=== PATIENT | female | born 1940 | race Caucasian/White ===

== ENCOUNTER 2023-05-31 08:57 | Outpatient (OUT) | payer MEDICARE, OTHER, SELFPAY ==
[2023-05-31 09:24] LABS: Estimated GFR (African America 50 (>=60); Estimated GFR (Non-African Ame 41 (>=60)
--- NOTE | 2023-05-31 09:59 | CT_ITS ---
[address] [address] Patient Name: TESSIE EL MRN: [id number] date: 1940 Sex: F Assigned Patient Location: LAB Current Patient Location: LAB Accession/Order Number: [id number] Exam Date: 05/31/2023 09:37 Report Date: 05/31/2023 13:46 At the request of: RAYMOND BELL Procedure: CT abdomen pelvis wo/w con CT abdomen pelvis wo/w con, 05/31/2023 9:37 AM EDT INDICATION: History Of Bladder Cancer Z85.51 COMPARISON: Prior CT of the abdomen dated 12/03/2020 TECHNIQUE: Axial images of the abdomen were obtained without administration of IV contrast. Multiplanar reformatted images were generated and reviewed as needed. Dose reduction techniques were achieved by using automated exposure control and/or adjustment of mA and/or kV according to patient size and/or use of iterative reconstruction technique. FINDINGS: Lungs: The base of lungs is clear. No pleural effusion is noted. Liver and gallbladder: The liver is unremarkable. There is cholelithiasis without pericholecystic fluid or wall thickening. No enlargement of intra or extrahepatic biliary ducts. 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 No abnormality in surgical bed is noted. No hydronephrosis. No nephrolithiasis. No abnormality of the urinary bladder is noted. Other solid abdominal organs: adrenal glands, pancreas, and spleen are unremarkable. Aorta: The infrarenal abdominal aorta is nonaneurysmal. Free fluid: There is no free fluid in the abdomen pelvis. Lymph node: No lymph node enlargement by size criteria is noted. Stomach and Bowel: No abnormality of the stomach is noted. No abnormality of small or large bowel is noted. Bone: There is no suspicious osteolytic or osteoblastic lesion. There is diffuse demineralization of bone. Lower lumbar spine and SI joint degenerative changes are noted. CT/CT abdomen pelvis wo/w con IMPRESSION: No significant abnormality in the current study. No significant interval change. Electronically authenticated by: JOSS BAILEY Date: 05/31/2023 13:46
== END 2023-05-31 08:58 | disposition home or self-care (01) ==
LOC: LAB 09:04
PROVIDERS: PCP Internal Medicine; Visit Provider Urology
DX: Z85.51 Personal history of malignant neoplasm of bladder (principal); Z08 Encounter for follow-up examination after completed treatment for malignant neoplasm
CPT/HCPCS: 36415; 74178; 82565; Q9967

== ENCOUNTER 2023-06-17 10:58 | Outpatient (OUT) | payer MEDICARE, OTHER, SELFPAY ==
--- NOTE | 2023-06-17 11:04 | US_ITS ---
[address] [address] Patient Name: TESSIE EL MRN: [id number] date: 1940 Sex: F Assigned Patient Location: Current Patient Location: US Accession/Order Number: [id number] Exam Date: 06/17/2023 11:05 Report Date: 06/17/2023 12:46 At the request of: EUFEMIA CALVO Procedure: US carotid duplex BI EXAMINATION: US carotid duplex BI HISTORY: Bruit Of Right Carotid Artery R09.39 COMPARISON: No relevant comparison available. TECHNIQUE: Duplex Doppler ultrasound analysis of carotid and vertebral arteries. . Bilateral carotid arterial duplex examination was performed using B-mode, color flow and spectral analysis. Carotid stenosis is reported according to validated velocity parameters, similar to NASCET criteria. FINDINGS: RIGHT CAROTID ARTERY Moderate atherosclerotic plaque. 64% area reduction right carotid bulb Subclavian: PSV: 133.8 cm/s cm/s EDV: 0.0 cm/s cm/s CCA: Prox: PSV: 45.0 cm/s cm/s EDV: 8.7 cm/s cm/s Mid: PSV: 52.6 cm/s cm/s EDV: 13.1 cm/s cm/s Distal: PSV: 55.9 cm/s cm/s EDV: 16.4 cm/s cm/s BULB: PSV: 110.2 cm/s cm/s EDV: 27.4 cm/s cm/s ICA: Prox: PSV: 90.5 cm/s cm/s EDV: 23.5 cm/s cm/s Mid: PSV: 122.0 cm/s cm/s EDV: 37.3 cm/s cm/s Distal: PSV: 98.4 cm/s cm/s EDV: 31.3 cm/s cm/s ECA: PSV: 94.4 cm/s cm/s EDV: 9.7 cm/s cm/s VERTEBRAL: PSV: 64.7 cm/s cm/s EDV: 16.4 cm/s cm/s, antegrade ICA/CCA ratio: PSV: 2.2 EDV: 2.3 LEFT CAROTID ARTERY Mild atherosclerotic plaque Subclavian: PSV: 124.0 cm/s cm/s EDV: 0.0 cm/s CCA: Prox: PSV: 68.8 cm/s cm/s EDV: 19.5 cm/s Mid: PSV: 70.8 cm/s cm/s EDV: 21.5 cm/s Distal: PSV: 60.7 cm/s cm/s EDV: 19.3 cm/s BULB: PSV: 65.9 cm/s cm/s EDV: 19.3 cm/s ICA: Prox: PSV: 43.9 cm/s cm/s EDV: 15.3 cm/s Mid: PSV: 96.4 cm/s cm/s EDV: 35.3 cm/s Distal: PSV: 80.6 cm/s cm/s EDV: 31.3 cm/s ECA: PSV: 74.9 cm/s cm/s EDV: 8.9 cm/s VERTEBRAL: PSV: 33.4 cm/s cm/s EDV: 8.5 cm/s , antegrade ICA/CCA ratio: PSV: 1.4 EDV: 1.6 IMPRESSION: 0-49% flow stenosis bilateral internal carotid arteries Spectral Doppler US Thresholds (Reference: Luis EG, et al. Radiology 2000; 214:247-252) Stenosis (%) PSV (cm/sec) VICA/VCCA 0-49 <150 <2.5 50-69 150-225 2.5-4.0 >70 >225 >4.0 Electronically authenticated by: AMANDA CHARLES Date: 06/17/2023 12:46
== END 2023-06-17 10:59 | disposition home or self-care (01) ==
LOC: US 10:59
PROVIDERS: PCP Internal Medicine; Visit Provider Internal Medicine
DX: R09.89 Other specified symptoms and signs involving the circulatory and respiratory systems (principal)
CPT/HCPCS: 93880

== ENCOUNTER 2023-08-02 10:14 | Outpatient (OUT) | payer MEDICARE, OTHER, SELFPAY ==
--- OUTSIDE RECORDS SUMMARY | 2023-08-02 10:22 | XMS_ITS | CCD ---
Author Name Unknown Address [address] [place] [address] Organization [facility] Care Team Providers Care Wood Flour Miller Name Role Phone JUAN JOSÉ ARCE Referring Unavailable CLAUDE, JUAN JOSÉ Primary Care Unavailable EARL BAUTISTA Attending Unavailable EARL BAUTISTA Admitting Unavailable CLAUDE, JUAN JOSÉ Primary Care Physician Claude, Juan José Unavailable CLAUDE, DR FALL Primary Care Unavailable BALL, DR FALL Admitting Unavailable BALL, DR FALL Attending Unavailable BALL, DR FALL Primary Care Unavailable BALL, DR FALL Admitting Unavailable BALL, DR FALL Attending Unavailable BALL, DR FALL Consulting Unavailable BALL, DR FALL Admitting Unavailable BALL, DR FALL Attending Unavailable BALL, DR FALL Consulting Unavailable BALL, DR FALL Primary Care Unavailable ZIEBER, DR SHELLIE Jackson Consulting Unavailable BALL, DR FALL Primary Care Unavailable HAY ., DR HERNÁNDEZ Admitting Unavailable HAY ., DR HERNÁNDEZ Attending Unavailable HAY ., DR HERNÁNDEZ Consulting Unavailable ITKIN, ANTONIO Consulting Unavailable Yandy Ragsdale Attending Unavailable Yandy Ragsdale Attending Unavailable LADARIUSJUAN Carlisle Attending Unavailable BARSHAILESH VALADEZ Attending Unavailable LADARIUSJUAN SIN Referring Unavailable JUAN URRUTIA Referring Unavailable Allergies Allergy Classification Reported Allergen(s) Allergy Type Date of Onset Reaction(s) Facility (1 source) Povidone-Iodine Drug Allergy 05-23-20 12 [facility] (4 sources) Sulfonamides (Antibiotic); Translations: [SULFA (SULFONAMIDE ANTIBIOTICS)] Drug allergy (disorder) 12-25-19 13 [facility] (13 sources) Iodine; Translations: [iodine] Drug Allergy 07-18-20 23 Blister (morphologic abnormality) [facility] [place] (3 sources) Sulfonamides (Antibiotic); Translations: [sulfa drugs] Drug allergy [facility] [place] (9 sources) Albuterol / Ipratropium Drug Allergy Unknown [facility] Other (9 sources) montelukast Drug Allergy Unknown [facility] Other (9 sources) Sulfamethoxazole / Trimethoprim Drug Allergy Unknown [facility] Other (9 sources) Substance with sulfonamide structure and antibacterial mechanism of action (substance) Drug allergy Unknown [facility] Other (2 sources) Iodine Drug Allergy 01-13-20 13 [facility] (1 source) Povidone-Iodine; Translations: [POVIDONE-IODINE] Drug Allergy 07-19-20 14 [facility] Repository Medications Current Medications Medication Drug Class(es) Dates Sig (Normalized) Sig (Original) 120 actuat albuterol 0.1 mg/actuat / ipratropium bromide 0.02 mg/actuat inhalation spray (9 sources) Anticholinergic, beta2-Adrenergic Agonist take 20-100 ug by inhalation every six hours as needed Combivent Respimat 20-100 MCG/ACT 1 puff as needed Inhalation every 6 hrs Active Aspirin (11 sources) Platelet Aggregation Inhibitor, Nonsteroidal Anti-inflammatory Drug Start: 04-04-2019 aspirin 81 mg Start Date: 04/04/19 Status: Ordered take 1 tablet by mouth once johnson y Aspirin 81 81 MG 1 tablet Orally Once a day Active take 1 tablet by chana th every twenty-four hours Aspirin 81 81 MG 1 tablet Orally Once a day Active atorvastatin 40 mg oral tablet (11 sources) HMG-CoA Reductase Inhibitor Start: 04-04-2019 take 40 mg by mouth once daily atorvastatin 40 mg, Oral, Daily Start Date: 04/04/19 Status: Ordered Calcium (9 sources) Phosphate Binder, Calcium Calcium Active Combivent Respimat (2 sources) Start: 04-04-2019 Combivent Respimat Start Date: 04/04/19 Status: Ordered doxycycline hyclate 100 mg oral capsule (5 sources) Tetracycline-class Drug Start: 05-04-2023 take 1 capsule by mouth every twelve hours Doxycycline Hyclate 100 MG 1 capsule Orally Twice a day for 5 days May, Active hydroCHLOROthiazide 12.5 mg / lisinopril 10 mg oral tablet (11 sources) Thiazide Diuretic, Angiotensin Converting Enzyme Inhibitor Start: 11-23-2021 take 1 tablet by mouth once daily hydrochlorothiaz nayely-lisinopril 12.5 mg-10 mg Tab 1 tab(s), Oral, Daily Start Date: 11/23/21 Status: Ordered loratadine 10 mg oral tablet (9 sources) take 1 tablet by mouth every twenty-four hours Claritin 10 MG 1 tablet Orally Once a day Active montelukast 10 mg oral tablet (11 sources) Leukotriene Receptor Antagonist Start: 04-04-2019 take 10 mg by mouth once daily Singulair 10 mg, Oral, Daily Start Date: 04/04/19 Status: Ordered Multivitamin preparation (9 sources) Multivitamin Active sotalol hydrochloride 80 mg oral tablet (11 sources) Antiarrhythmic Start: 04-04-2019 sotalol 80 mg Tab Start Date: 04/04/19 Status: Ordered take 1 tablet by chana th every twenty-four hours Sotalol HCl (AF) 120 MG 1 tablet Orally daily for 90 days Active take 1 tablet by mouth every twe lve hours Sotalol HCl (AF) 120 MG 1 tablet Orally every 12 hrs Active Completed/Discontinued Medications Medication Drug Class(es) Dates Sig (Normalized) Sig (Original) cephalexin 500 mg oral capsule (1 source) Cephalosporin Antibacterial Start: 11-09-2021 take 1 capsule by mouth every twelve hours Keflex 500 mg Cap 500 mg = 1 cap(s), Oral, q12hr, Take 1 pill the day before the procedure and 1 pill after the procedure., # 2 cap(s), Refills(s) 0, Pharmacy: [id number], 158, cm, 01/05/21 13:27:00 EDT, Height/Length Dosing, 62.1, kg, 01/05/21 13:27:0... Start Date: 11/09/21 Status: Ordered Problems Active Problems Problem Classification Problem Date Documented Da te Episodic/Chronic Acute bronchitis (1 source) Acute bronchitis due to other specified organisms Episodic Asthma (20 sources) Asthma; Translations: [Uncomplicated mild persistent asthma] 04-04-2019 Chronic Calculus of urinary tract (2 sources) Kidney stone 04-04-2019 Episodic Cancer of bladder (13 sources) Malignant tumor of urinary bladder; Translations: [Malignant neoplasm, overlapping lesion of bladder] 04-04-2019 Chronic Cancer of bladder (2 sources) History of malignant neoplasm of bladder; Translations: [Personal history of malignant neoplasm of bladder] Onset: 11-23-2021 Episodic Cancer of other urinary organs (2 sources) Malignant tumor of ureter 04-04-2019 Chronic Cancer of uterus (2 sources) Malignant neoplasm of uterus 04-04-2019 Chronic Cancer; other and unspecified primary (1 source) H/O: carcinoma 01-19-2023 Episodic Cancer; other and unspecified primary (1 source) H/O: malignant neoplasm 01-19-2023 Episodic Cardiac dysrhythmias (18 sources) Paroxysmal atrial fibrillation; Translations: [Paroxysmal atrial fibrillation] Onset: 11-30-2022 Chronic Chronic kidney disease (9 sources) Chronic kidney disease stage 3A ; Translations: [Stage 3a chronic kidney disease] Chronic Chronic obstructive pulmonary disease and bronchiectasis (11 sources) Chronic obstructive lung disease; Translations: [Simple chronic bronchitis] 04-04-2019 Chronic Conduction disorders (15 sources) Cardiac pacemaker in situ; Translations: [Presence of cardiac pacemaker] Onset: 11-30-2022 Chronic Congestive heart failure; nonhypertensive (2 sources) Congestive heart failure 04-04-2019 Chronic Disorders of lipid metabolism (18 sources) Hyperlipidemia; Translations: [Hypercholesterolemi a] Onset: 12-03-2022 04-04-2019 Chronic Endometriosis (2 sources) Endometriosis (clinical) 04-04-2019 Chronic Essential hypertension (20 sources) Hypertensive disorder; Translations: [Essential hypertension] Onset: 11-30-2022 04-04-2019 Chronic Genitourinary symptoms and ill-defined conditions (4 sources) Blood in urine; Translations: [Urinary symptoms ] 04-04-2019 Episodic Occlusion or stenosis of precerebral arteries (11 sources) Bilateral stenosis of carotid arteries; Translations: [Occlusion and stenosis of bilateral carotid arteries] Chronic Osteoporosis (8 sources) Age-related osteoporosis without current pathological fracture; Translations: [Senile osteoporosis] Onset: 05-31-2022 Chronic Other aftercare (2 sources) Other long-term (current) drug therapy; Translations: [OTH SHELTER CURRENT DRUG THERAPY] Onset: 12-09-2022 Episodic Other aftercare (1 source) Follow-up status; Translations: [Encounter for follow-up examination after completed treatment for malignant neoplasm] Onset: 01-19-2023 Episodic Other and unspecified benign neoplasm (3 sources) Benign neoplasm of colon; Translations: [Colon polyps] Episodic Other circulatory disease (2 sources) Other specified symptoms and signs involving the circulatory and respiratory systems; Translations: [OTH SPEC SX SIGNS INVLV CIRC RS] Onset: 06-03-2022 Episodic Residual codes; unclassified (1 source) Procedure and treatment not carried out because of patient's decision for unspecified reasons Episodic Unclassified (2 sources) COUGH, UNSPECIFIED; Translations: [COUGH, UNSPECIFIED] Onset: 08-03-2022 Unclassified (2 sources) Device Check; Translations: [Device Check] Onset: 11-30-2022 Urinary tract infections (2 sources) 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 Comment on above: Urethral Stricture Past or Other Problems Problem Classification Problem Date Documented Da te Episodic/Chronic Chronic kidney disease (4 sources) Chronic kidney disease; Translations: [CHRONIC KIDNEY DISEASE STAGE 3A] Onset: 12-09-2022 Other aftercare (1 source) detention (current) use of aspirin; 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] Onset: 08-03-2022 Episodic Other bone disease and musculoskeletal deformities (1 source) Other specified disorders of bone density and structure, unspecified site; Translations: [OT D/O BONE DEN STRUCT UNS SITE] Onset: 06-03-2022 Episodic Other upper respiratory infections (1 source) Acute upper respiratory infection, unspecified; Translations: [ACUTE UP RESPIRATORY INFECTION UNS] Onset: 08-03-2022 Episodic Unclassified (1 source) COUGH, UNSPECIFIED; Translations: [COUGH, UNSPECIFIED] Onset: 07-31-2022 Unclassified (1 source) Suspected COVID-19 virus infection Z20.822 Results Test Name Value Interpretation Reference Range Facility Office Visiton 07-18-2023 Follow-up visit [id number] Rebecca Hays 1940 F Date Provider Department Center 07/18/2023 Kacy-SHAILESH [facility] Family History Problem Relation Age of Onset No Known Problems Mother No Known Problems Father Family Status - Relation Status Age at Mother Father Level of Service:[id number] [place] OFFICE/OUTPATIENT ESTABLISHED MOD MDM 30 MIN Normal [facility] Reminderson 07-05-2023 Reminders - From: Steff Bateman To: KRYSTAL Ragsdale; Sent: 01/19/2023 11:57:46 EDT Show up: 03/21/2023 11:57:00 EDT Subject: Reminder Message Reminder Message Please Remember to:_call pt to get CTU in April and to schedule cysto Called pt and she has been sick w/ COVID for the last 2 weeks. Pt states she gets imaging done at [facility]. order for CTU was faxed to [facility] today. I advised pt to give us a call back when she is feeling better. Called pt and she is scheduled for 06/01/23 @ [facility] for CTU From: Iliana Poole (KRYSTAL - Luisa Ragsdale) To: Yandy Ragsdale MD; Sent: 06/06/2023 08:53:48 EST Show up: 06/06/2023 08:53:00 EST Subject: RE: Reminder Message Please review pt CTU in pt chart. Cysto is not scheduled yet. From: Yandy Ragsdale MD To: EU - Luisa Ragsdale; Nena Chau; Sent: 06/06/2023 17:04:04 EST Show up: 06/06/2023 17:04:00 EST Subject: RE: Reminder Message Pt needs cysto with cytology scheduled. Will review CTU results at that time Thanks, KML called patient to schedule Cysto, LM w/ Male for her to call the office left another message with male for her to call office Patient returned my call, She is scheduled 08/11/[address] Jn Davila [facility] RAD - CT Reporton 06-06-2023 RAD - CT Report [id number] IFF Normal [facility] Screenson 01-21-2023 Screens [id number] D:127 Normal [facility] Ambulatory Visit Summaryon 0 01-19-2023 Ambulatory Visit Summary REBECCA HAYS :1940 Visit Date:01/19/2023 Ambulatory Visit Instructions Your Diagnosis History of bladder cancer Encounter for follow-up 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 Tests Performed Urnls Dip Stick Auto w/o Microscopy POC 75885 Your Care Team Attending Physician - Jn MCCRARY, Yandy Martínez Primary Care Physician - CLAUDE BANGURA JUAN JOSÉ This Is Your Medications List Contact prescribing physician if questions or concerns albuterol-ipratropium (Combivent Respimat) aspirin atorvastatin hydrochlorothiazide-lis inopril (hydrochlorothiazide-li sinopril 12.5 mg-10 mg Tab) montelukast (Singulair) sotalol (sotalol 80 mg Tab) Procedures Performed Cystoscopy (11/23/2021), Cystoscopy (01/05/2021), Cysto/Lt stent removal (01/02/2016), Cysto, Lt RG, TURBT, Lt stent (12/17/2015), TURBT - Transurethral resection of bladder tumor (05/21/2015), Nephroureterectomy (06/24/2014), Cysto, Rt RG, Ureteroscopy, Bladder bx, Rt Stent (03/20/2014), Cysto, Random Bladder BX & Fulguration (05/02/2013), Cysto/TURBT, [place] Bladder bx & fulguration (02/14/2013), TURBT - Transurethral resection of bladder tumor (01/17/2013), Appendectomy, Bilateral tubal ligation, Cardiac pacemaker, Cystoscopy, HX Of BCG'S, Hysterectomy. Discharge Vitals Heart Rate (Peripheral) 70 Height 158 cm Height 62 in Weight 54 kg Weight 118.8 lb BMI 21.63 What to do next You Need to Schedule the Following Appointments Follow Up with Jn MCCRARY, Yandy Martínez, URL, URO When: Where: [address] [place] [address] [id number] Medications What How Much When Instructions Unchanged albuterol-ipratropium (Combivent Respimat) Contact prescribing physician if questions or concerns Unchanged aspirin 81 Milligram Contact prescribing physician if questions or concerns Unchanged atorvastatin 40 Milligram By Mouth Every day Contact prescribing physician if questions or concerns Unchanged hydrochlorothiazide-lis inopril (hydrochlorothiazide-li sinopril 12.5 mg-10 mg Tab) 1 Tablets By Mouth Every day Contact prescribing physician if questions or concerns Unchanged montelukast (Singulair) 10 Milligram By Mouth Every day Contact prescribing physician if questions or concerns Unchanged sotalol (sotalol 80 mg Tab) Contact prescribing physician if questions or concerns Test Results Urnls Dip Stick Auto w/o Microscopy POC 31790 (01/19/2023) Bilirubin Urine Dipstick - Negative Blood Urine Dipstick - Trace-intact Glucose Urine Dipstick - Negative Ketones Urine Dipstick - Negative Leukocytes Urine Dipstick - 1+ Small Nitrite Urine Dipstick - Negative Protein Urine Dipstick - Negative Specific [place] Urine Dipstick - 1.015 Urine Appearance Urine Dipstick - Clear Urine Color Urine Dipstick - Yellow Urobilinogen Urine Dipstick - Normal 0.2-1 EU/dl pH Urine Dipstick - 7 Allergies iodine (Blisters) sulfa drugs (Irch) Problems Ongoing - Any problem that you are currently receiving treatment for. 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 Your health care provider will recommend specific cancer screenings based on your age, medical history (including risk factors), and family history of cancer. Work with your health care provider to create a cancer screening schedule that protects your health. Who should have screening? All women should be considered for screening of certain cancers, including breast cancer, cervical cancer, colorectal cancer, and skin cancer. Your health care provider may recommend screenings for other types of cancer if: ? You had cancer before. ? You have a family member with cancer. ? You have abnormal genes that could increase the risk of cancer. ? You have risk factors for certain cancers, such as current or past use of tobacco products, or being overweight. When you should be screened for cancer depends on: ? Your age. ? Your medical history and your family's medical history. ? Certain lifestyle factors, such as smoking or other use of tobacco products. ? Environmental exposure, such as to asbestos. How is screening done? Breast cancer Breast cancer screening is done with a test that takes images of breast tissue (mammogram). Here are some screening guidelines for women at average risk: ? When you are age 40?44, you will be given the choice to start having mammograms. ? When you are age 45?54, you should have a mammogram every year. ? You may start having mammograms before age 45 i (more content not included)... Normal [facility] Patient Educationon 01-20-20 Patient Education Oncology Cancer Screening for Women A cancer screening is a test or exam that checks for cancer. Your health care provider will recommend specific cancer screenings based on your age, medical history (including risk factors), and family history of cancer. Work with your health care provider to create a cancer screening schedule that protects your health. Who should have screening? All women should be considered for screening of certain cancers, including breast cancer, cervical cancer, colorectal cancer, and skin cancer. Your health care provider may recommend screenings for other types of cancer if: ? You had cancer before. ? You have a family member with cancer. ? You have abnormal genes that could increase the risk of cancer. ? You have risk factors for certain cancers, such as current or past use of tobacco products, or being overweight. When you should be screened for cancer depends on: ? Your age. ? Your medical history and your family's medical history. ? Certain lifestyle factors, such as smoking or other use of tobacco products. ? Environmental exposure, such as to asbestos. How is screening done? Breast cancer Breast cancer screening is done with a test that takes images of breast tissue (mammogram). Here are some screening guidelines for women at average risk: ? When you are age 40?44, you will be given the choice to start having mammograms. ? When you are age 45?54, you should have a mammogram every year. ? You may start having mammograms before age 45 if you have risk factors for breast cancer, such as having an immediate family member with breast cancer. ? At age 55 or older, you should have a mammogram every 1?2 years for as long as you are in good health and have a life expectancy of 10 years or longer. ? It is important to know what your breasts look and feel like so you can report any changes to your health care provider. Cervical cancer ? All women at average risk should be considered for screening for cervical cancer starting no later than age 25 and continuing until age 65. Screening should not begin earlier than age 21. You will have tests every 3?5 years, depending on your results and the type of screening test. Talk with your health care provider about which screening test is right for you and how often you should be screened. ? Cervical cancer screening is done with an HPV (human papillomavirus) test to identify the virus that causes cervical cancer. To perform the test, a health care provider takes a swab of cells from yourcervix during a pelvic exam. This test may be performed along with a Pap test. This testchecks for abnormalities in the lowest part of the uterus (cervix). ? If you have had the HPV vaccine, you will still be screened for cervical cancer and follow normal screening recommendations. You do not need to be screened for cervical cancer if any of the following apply to you: ? You are older than age 65 and you have had normal screening tests in the past 10 years with no serious cervical precancer or cancer in the last 25 years. ? Your cervix and uterus have been removed, and you have never had cervical cancer or abnormal cells that could become cancer (precancerous cells). Colorectal cancer All adults should have screenings starting at age 45 and continuing until age 75. Your health care provider may recommend screening before age 45. You will have tests every 1?10 years, depending on your results and the type of screening test. People at increased risk should start screening at an earlier age. Talk with your health care provider about which screening test is right for you and how often you should be screened. Colorectal cancer screening looks for cancer or for growths called polyps that often form before cancer starts. Tests to look for cancer or polyps include: ? Colonoscopy or flexible sigmoidoscopy. For these procedures, a flexible tube with a small camera is inserted into the rectum. ? CT colonography. This test uses X-rays and a contrast dye to check the colon for polyps. If a polyp is found, you may need to have a colonoscopy so the polyp can be located and removed. Tests to look for cancer in the stool (feces) include: ? Guaiac-based fecal occult blood test (FOBT). This test can find blood in stool. It can be done at home with a kit. ? Fecal immunochemical test (FIT). This test can find blood in stool. For this test, you will need to collect stool samples at home. ? Stool DNA test. This test looks for blood in stool and any changes in DNA that can lead to colon cancer. For this test, you will need to collect a stool sample at home and send it to a lab. Endometrial cancer There is no standard screening test for endometrial cancer, and women at average risk do not routinely need to have this screening. Talk with your health care provider about whether screening is right for you. If it is, this screening is performed through: ? Endometrial tissue b (more content not included)... 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 NEG Cytology 11/23/[address] 12/03/20 TURBT 12/16/22 Denies visible blood in urine. Denies any urinary complaints at this time. Here to discuss future plans on monitoring Bladder Cancer. First Dx'd back in 2012. Did go through BCG Tx's. During scans, spot found on Ureter. Pt did have Rt Nephrectomy. History of Present Illness Tests reviewed: reviewed UA, CT scan, Path report and external records: pathology, notes I have reviewed the previous health record information and history for this patient from Dr. Mendenhall and external providers I have reviewed and verified the staff HPI to be accurate for this encounter. There have been no associated fever, chills, flank pain, or blood in the urine. Denies any urinary infections since last encounter. Review of Systems PHQ Score Initial Depression Screen Score: 0 ROS - Provider Constitutional: denies weight loss, denies hot flashes. Eyes: denies eye problems. Gastrointestinal: denies nausea, denies vomiting. Cardiovascular: denies chest pain or angina. Integumentary: no dryness Musculoskeletal: denies musculoskeletal symptoms. ENMT: denies otolaryngeal symptoms. Respiratory: no shortness of breath. Heme/Lymph: denies easy bleeding tendency, denies easy bruising tendency. Psychiatric: no confusion, no anxiety. Genitourinary: See HPI. Physical Exam Vitals & Measurements HR: 70(Peripheral) HT: 62 in HT: 158 cm WT: 54 kg WT: 118.8 lb BMI: 21.63 General Appearance: alert , no acute distress, well nourished, well developed female. Genitourinary: bladder nonpalpable, no flank pain. 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 82 yo F here with history of bladder cancer and right UTUC s/p right nephroureterectomy. Pt's parents passed in their 90s. hx COPD 1. 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 Recurrence: Low grade [facility] 11/2015. No recurrence since TURBT 01/17/2013 Cysto/TURBT, Bladder bx & fulguration 02/14/13 Cysto, Bladder BX & Fulguration 05/02/2013 Cysto, Rt RG, Ureteroscopy, Bladder bx, Rt Stent 03/20/14 TURBT 05/21/2015 Cysto, Lt RG, TURBT, Lt stent 12/17/15 Cysto/Lt stent removal 01/02/16 Cysto 04/30/19 Cysto 01/05/21 and Cytology showed atypia at that time. Cysto 11/23/21 and bladder wash was sent for Cytology at that time. UA today shows small leukocytes and trace-intact blood. Pt denies seeing any blood in the urine and any pain with urination. Pt reluctant for continued surveillance. Discussed 10 year surveillance recommendations for high grade cancer. Given age, comorbidities and pt's desire for QOL, risks/benefits of imaging every 2 years and cysto every 1-2 years. No recurrence since 2015, which was low grade. Pt opts for surveillance in the fall given summer schedule. This will be about 1.5 yrs from last. -Follow up in April with CTU and cystoscopy with cytology or sooner if needed. Pt understands and agrees with plan. The risks and benefits for cystoscopy have been discussed. The risks include bleeding, infection, and irritation of the bladder and urinary channel, among others. The patient, after being informed of procedural details and after questions have been answered, wishes to proceed. Full informed consent has been obtained. Will order Local anesthesia. 2. 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 Pt opted for Sept Follow-up With When Contact Information Jn MCCRARY, Yandy Martínez, URL, URO In 3 months [address], [place] [address]- [phone] Additional Instructions: CTU I spent 35 minutes today with the patient: reviewing tests in preparation to see and discuss them with the patient, obtaining and reviewing external separately obtained history, documenting clinical information in the electronic health records, and care coordination. Over half the time was spent performing a medical exam and evaluation, and counseling and educating the patient, and ordering tests and procedures in caring for the patient. Patient Education [facility] I, Steff Bateman, personally scribed for Dr. Ragsdale on 01/19/2023 12:04:55. . Documentation recorded by the scribe, Steff Bateman, accurately reflects the services(s) I performed and decisions made by me. Authenticated by Dr. Ragsdale on 01/19/2023 14:31:07. (more content not included)... Normal [facility] Comment on above: Result Comment: Elec tronically Signed By: Yandy Ragsdale MD\.br\Date and Time Signed: 01/19/23 14:32 EDT\.br\Electronically Co-Signed By: Steff Bateman\.br\Date and Time Co-Signed: 01/19/23 12:05 EDT CBC AUTO DIFFon 12-03-2022 BASO # 0.1 103/ul Normal 0.0-0.1 [facility] Comment on above: Performed By: #### C BC #### [facility] [address] [place] [address] Dr. Radha Pacheco Basophils/100 WBC (Bld) 1.0 % Normal 0.2-2.0 [facility] Comment on above: Performed By: #### C BC #### [facility] [address] [place] [address] Dr. Radha Pacheco EO # 0.2 103/ul Normal 0.0-0.7 [facility] Comment on above: Performed By: #### C BC #### [facility] [address] [place] [address] Dr. Radha Pacheco Eosinophils/100 WBC (Bld) 2.7 % Normal 0.9-7.0 [facility] Comment on above: Performed By: #### C BC #### [facility] [address] [place] [address] Dr. Radha Pacheco Erythrocyte distribution width (RBC) [Ratio] 13.2 % Normal 11.0-15.0 [facility] Comment on above: Performed By: #### C BC #### [facility] [address] [place] [address] Dr. Radha Pacheco Hematocrit (Bld) [Volume fraction] 43.7 % Normal 36.0-48.0 [facility] Comment on above: Performed By: #### C BC #### [facility] [address] [place] [address] Dr. Radha Pacheco Hemoglobin (Bld) [Mass/Vol] 13.8 g/dL Normal 12.0-16.0 [facility] Comment on above: Performed By: #### C BC #### [facility] [address] [place] [address] Dr. Radha Pacheco IG # 0.01 10e3/ul Normal 0.00-0.03 [facility] Comment on above: Performed By: #### C BC #### [facility] [address] [place] [address] Dr. Radha Pacheco IG % 0.1 % Normal 0.0-0.5 [facility] Comment on above: Performed By: #### C BC #### [facility] [address] [place] [address] Dr. Radha Pacheco LYMPH # 2.6 103/ul Normal 1.2-3.8 [facility] Comment on above: Performed By: #### C BC #### [facility] [address] [place] [address] Dr. Radha Pacheco Lymphocytes/100 WBC (Bld) 37.3 % Normal 20.5-60.0 [facility] Comment on above: Performed By: #### C BC #### [facility] [address] [place] [address] Dr. Radha Pacheco MANUAL DIFF REQ NO Normal [facility] Comment on above: Performed By: #### C BC #### [facility] [address] [place] [address] Dr. Radha Pacheco MCH (RBC) [Entitic mass] 28.5 pg Normal 26.7-34.0 [facility] Comment on above: Performed By: #### C BC #### [facility] [address] [place] [address] Dr. Radha Pacheco MCHC (RBC) [Mass/Vol] 31.6 g/dL Normal 29.9-35.2 [facility] Comment on above: Performed By: #### C BC #### [facility] [address] [place] [address] Dr. Radha Pacheco MCV (RBC) [Entitic vol] 90.3 fL Normal 81.0-99.0 [facility] Comment on above: Performed By: #### C BC #### [facility] [address] [place] [address] Dr. Radha Pacheco MONO # 0.4 103/ul Normal 0.3-0.8 [facility] Comment on above: Performed By: #### C BC #### [facility] [address] [place] [address] Dr. Radha Pacheco Monocytes/100 WBC (Bld) 6.2 % Normal 1.7-12.0 [facility] Comment on above: Performed By: #### C BC #### [facility] [address] [place] [address] Dr. Radha Pacheco NEUT # 3.6 103/ul Normal 1.4-6.5 [facility] Comment on above: Performed By: #### C BC #### [facility] [address] [place] [address] Dr. Radha Pacheco Neutrophils/100 WBC (Bld) 52.7 % Normal 43.0-75.0 [facility] Comment on above: Performed By: #### C BC #### [facility] [address] [place] [address] Dr. Radha Pacheco Platelet mean volume (Bld) [Entitic vol] 9.7 fL Normal 9.5-13.5 [facility] Comment on above: Performed By: #### C BC #### [facility] [address] [place] [address] Dr. Radha Pacheco PLT 240 103/ul Normal 150-450 [facility] Comment on above: Performed By: #### C BC #### [facility] [address] [place] [address] Dr. Radha Pacheco RBC 4.84 106/ul Normal 4.20-5.40 [facility] Comment on above: Performed By: #### C BC #### [facility] [address] [place] [address] Dr. Radha Pacheco WBC 6.9 103/ul Normal 4.0-11.0 [facility] Comment on above: Performed By: #### C BC #### [facility] [address] [place] [address] Dr. Radha Pacheco LIPID PROFILEon 12-03-2022 CHOL-HDL RATIO NORM SEE BELOW Normal [facility] Comment on above: Result Comment: 3.3 - 4.4 LOW RISK 4.4 - 7.1 AVERAGE RISK 7.1 - 11.0 MODERATE RISK >11.0 HIGH RISK Performed By: #### B MP, LIPID, ALT #### [facility] [address] [place] [address] Dr. Radha Pacheco Cholesterol [Mass/Vol] 145 mg/dL Normal <=200 [facility] Comment on above: Performed By: #### B MP, LIPID, ALT #### [facility] [address] [address] [address] Radha Pacheco Cholesterol in HDL [Mass/Vol] 71 mg/dL Critically high 40-60 [facility] Comment on above: Performed By: #### B MP, LIPID, ALT #### [facility] [address] [address] [address] Radha Pacheco Cholesterol in LDL [Mass/Vol] 56.8 mg/dL Normal [facility] Comment on above: Performed By: #### B MP, LIPID, ALT #### [facility] [address] [address] [address] Radha Pacheco Cholesterol.total /Cholesterol in HDL [Mass ratio] 2.0 {ratio} Normal [facility] Comment on above: Performed By: #### B MP, LIPID, ALT #### [facility] [address] [address] [address] Radha Pacheco HDL NORMAL > or = 60 mg/dl - LO W CARDIOVASCULAR RISK <40 mg/dl - HIGH CARDIOVASCULAR RISK Normal [facility] Comment on above: Performed By: #### B MP, LIPID, ALT #### [facility] [address] [address] [address] Radha Pacheco LDL CALC NORMAL SEE BELOW Normal [facility] Comment on above: Result Comment: <100 mg/dl OPTIMAL 100 - 129 mg/dl NEAR OR ABOVE OPTIMAL 130 - 159 mg/dl BORDERLINE HIGH 160 - 189 mg/dl HIGH >190 mg/dl VERY HIGH Performed By: #### B MP, LIPID, ALT #### [facility] [address] [address] [address] Radha Pacheco Triglyceride [Mass/Vol] 86 mg/dL Normal <=150 [facility] Comment on above: Performed By: #### B MP, LIPID, ALT #### [facility] [address] [address] [address] Radha Pacheco VLDL CALC 17.2 mg/dL Normal [facility] Comment on above: Performed By: #### B MP, LIPID, ALT #### [facility] [address] [address] [address] Radha Pacheco PROF CHEM 8 (BAS METB)on Anion gap [Moles/Vol] 9.1 mmol/L Normal [facility] Comment on above: Performed By: #### B MP, LIPID, ALT #### [facility] [address] [address] [address] Radha Pacheco Calcium [Mass/Vol] 10.0 mg/dL Normal 8.5-10.1 [facility] Comment on above: Performed By: #### B MP, LIPID, ALT #### [facility] [address] [address] [address] Radha Pacheco Chloride [Moles/Vol] 103 mmol/L Normal 98-107 [facility] Comment on above: Performed By: #### B MP, LIPID, ALT #### [facility] [address] [place] [address] Dr. Radha Pacheco CO2 [Moles/Vol] 32.2 mmol/L Critically high 21.0-32.0 [facility] Comment on above: Performed By: #### B MP, LIPID, ALT #### [facility] [address] [address] [address] Radha Pacheco Creatinine [Mass/Vol] 0.97 mg/dL Normal 0.55-1.02 [facility] Comment on above: Performed By: #### B MP, LIPID, ALT #### [facility] [address] [address] [address] Radha Pacheco EGFR-AF KAZAKH >60 Normal >=60 [facility] Comment on above: Performed By: #### B MP, LIPID, ALT #### [facility] [address] [address] [address] Radha Pacheco EGFR-NON AF KAZAKH 55 mL/min/1.73m2 Critically low >=60 [facility] Comment on above: Performed By: #### B MP, LIPID, ALT #### [facility] [address] [address] [address] Radha Pacheco Glucose [Mass/Vol] 108 mg/dL Critically high 74-106 [facility] Comment on above: Performed By: #### B MP, LIPID, ALT #### [facility] [address] [address] [address] Radha Pacheco Potassium [Moles/Vol] 4.3 mmol/L Normal 3.5-5.1 [facility] Comment on above: Performed By: #### B MP, LIPID, ALT #### [facility] [address] [place] [address] Dr. Radha Pacheco Sodium [Moles/Vol] 140 mmol/L Normal 136-145 [facility] Comment on above: Performed By: #### B MP, LIPID, ALT #### [facility] [address] [place] [address] Dr. Radha Pacheco Urea nitrogen [Mass/Vol] 20.0 mg/dL Critically high 7.0-18.0 [facility] Comment on above: Performed By: #### B MP, LIPID, ALT #### [facility] [address] [place] [address] Dr. Radha Pacheco Urea nitrogen/Creatini ne [Mass ratio] 20.6 mg/mg Normal [facility] Comment on above: Performed By: #### B MP, LIPID, ALT #### [facility] [address] [place] [address] Dr. [facility] [Catalytic activity/Vol] 25 U/L Normal 14-59 [facility] Comment on above: Performed By: #### B MP, LIPID, ALT #### [facility] [address] [place] [address] Dr. Radha Pacheco UA RANDOM W/MICROSCOPICon BACTERIA TRACE Abnormal NONE SEEN [facility] Comment on above: Performed By: #### U AMIC #### [facility] [address] [place] [address] Dr. Radha Pacheco Bilirubin Ql (U) Negative Normal NEGATIVE [facility] Comment on above: Performed By: #### U AMIC #### [facility] [address] [place] [address] Dr. Radha Pacheco CAST NONE SEEN Normal NONE SEEN [facility] Comment on above: Performed By: #### U AMIC #### [facility] [address] [address] [address] Radha Pacheco Clarity (U) CLEAR Normal CLEAR [facility] Comment on above: Performed By: #### U AMIC #### [facility] [address] [place] [address] Dr. Radha Pacheco Color (U) LT. YELLOW Normal YELLOW [facility] Comment on above: Performed By: #### U AMIC #### [facility] [address] [address] [address] Radha Pacheco Crystals LM Nom (Urine sed) NONE SEEN Normal NONE SEEN [facility] Comment on above: Performed By: #### U AMIC #### [facility] [address] [place] [address] Dr. Radha Pacheco Epithelial cells LM Ql (Urine sed) FEW Abnormal NONE SEEN /RARE [facility] Comment on above: Performed By: #### U AMIC #### [facility] [address] [address] [address] Radha Pacheco Glucose Ql (U) Negative Normal NEGATIVE [facility] Comment on above: Performed By: #### U AMIC #### [facility] [address] [place] [address] Dr. Radha Pacheco Hemoglobin Ql (U) Negative Normal NEGATIVE [facility] Comment on above: Performed By: #### U AMIC #### [facility] [address] [address] [address] Radha Pacheco Ketones Ql (U) Negative Normal NEGATIVE [facility] Comment on above: Performed By: #### U AMIC #### [facility] [address] [place] [address] Dr. Radha Pacheco LEUKOCYTES SMALL Abnormal NEGATIVE [facility] Comment on above: Performed By: #### U AMIC #### [facility] [address] [place] [address] Dr. Radha Pacheco MUCOUS NONE SEEN Normal NONE SEEN [facility] Comment on above: Performed By: #### U AMIC #### [facility] [address] [place] [address] Dr. Radha Pacheco Nitrite Ql (U) Negative Normal NEGATIVE [facility] Comment on above: Performed By: #### U AMIC #### [facility] [address] [address] [address] Radha Pacheco pH (U) 7.5 [pH] Normal 5-9 [facility] Comment on above: Performed By: #### U AMIC #### [facility] [address] [address] [address] Radha Pacheco RBC NONE SEEN Abnormal 0-2 [facility] Comment on above: Performed By: #### U AMIC #### [facility] [address] [address] [address] Radha Pacheco SPEC GRAVITY 1.015 Normal 1.005-<=1.025 [facility] Comment on above: Performed By: #### U AMIC #### [facility] [address] [address] [address] Radha Pacheco UA PROTEIN Negative Normal NEGATIVE/ TRACE [facility] Comment on above: Performed By: #### U AMIC #### [facility] [address] [address] [address] Radha Pacheco Urobilinogen Qn (U) 0.2 {Teodora'U}/dL Normal 0.2 - 1.0 [facility] Comment on above: Performed By: #### U AMIC #### [facility] [address] [address] [address] Radha Pacheco WBC 2-5 Abnormal NONE SEEN [facility] Comment on above: Performed By: #### U AMIC #### [facility] [address] [address] [address] Radha Pacheco Office Visiton 11-30-2022 Follow-up visit [id number] Rebecca Hays 1940 F Date Provider Department Center 11/30/2022 JUAN ISLAS [facility] Family History Problem Relation Age of Onset No Known Problems Mother No Known Problems Father Family Status - Relation Status Age at Mother Father Level of Service:34754 [place] OFFICE/OUTPATIENT ESTABLISHED MOD MDM 30-39 MIN Reason for Visit and Comments: Atrial Fibrillation [80] Hypertension [022490] Device Check [3371] Normal [facility] XR CHEST 1 Von 07-31-2022 XR CHEST 1 V EXAM: XR CHEST 1 V HISTORY: COUGH COMPARISON: 11/20/2021 TECHNIQUE: Single view of the chest. FINDINGS: Left chest cardiac device and leads noted. Unremarkable cardiomediastinal silhouette. No focal consolidation, pleural effusion, pulmonary congestion or pneumothorax. IMPRESSION: No acute findings. Electronically authenticated by: ANTONIO CUADRA Date: 2022-07-31 10:49 Normal [facility] US CAROTID ART BILon 022 US CAROTID ART KEESHA EXAMINATION: US CAROTID ART KEESHA HISTORY: Cardiovascular symptoms COMPARISON: No relevant comparison available. TECHNIQUE: Duplex Doppler ultrasound analysis of carotid and vertebral arteries. . Bilateral carotid arterial duplex examination was performed using B-mode, color flow and spectral analysis. Carotid stenosis is reported according to validated velocity parameters, similar to NASCET criteria. FINDINGS: RIGHT CAROTID ARTERY: Large amount of irregular atherosclerotic plaque within carotid bulb resulting in 76% area reduction. RIGHT VERTEBRAL: Antegrade flow. Subclavian: PSV: 72.5 cm/s EDV: 0.0 cm/s CCA: Prox: PSV: 56.7 cm/s EDV: 13.8 cm/s Mid: PSV: 61.1 cm/s EDV: 16.0 cm/s Distal: PSV: 55.6 cm/s EDV: 17.1 cm/s BULB: PSV: 60.0 cm/s EDV: 36.9 cm/s ICA: Prox: PSV: 112.4 cm/s EDV: 30.0 cm/s Mid: PSV: 131.3 cm/s EDV: 44.5 cm/s Distal: PSV: 73.7 cm/s EDV: 31.7 cm/s ECA: PSV: 68.8 cm/s EDV: 10.7 cm/s VERTEBRAL: PSV: 62.2 cm/s EDV: 21.5 cm/s ICA/CCA ratio: PSV: 2.1 EDV: 2.8 LEFT CAROTID ARTERY: Small amount of atherosclerotic plaque without significant stenosis. LEFT VERTEBRAL: Antegrade flow. Subclavian: PSV: 114.1 cm/s EDV: 0.0 cm/s CCA: Prox: PSV: 72.0 cm/s EDV: 21.5 cm/s Mid: PSV: 70.7 cm/s EDV: 20.2 cm/s Distal: PSV: 66.8 cm/s EDV: 18.9 cm/s BULB: PSV: 47.9 cm/s EDV: 12.7 cm/s ICA: Prox: PSV: 43.5 cm/s EDV: 14.9 cm/s Mid: PSV: 106.0 cm/s EDV: 38.1 cm/s Distal: PSV: 101.1 cm/s EDV: 31.6 cm/s ECA: PSV: 101.1 cm/s EDV: 13.9 cm/s VERTEBRAL: PSV: 32.8 cm/s EDV: 9.2 cm/s ICA/CCA ratio: PSV: 1.5 EDV: 1.9 IMPRESSION: 1. Marked atherosclerotic plaque within right carotid bulb resulting in 50-69% flow stenosis. 2. Mild plaque within left carotid artery without significant stenosis. Spectral Doppler US Thresholds Stenosis (%) PSV (cm/sec) VICA/VCCA 0-49 <150 <2.5 50-69 150-225 2.5-4.0 >70 >225 >4.0 Electronically authenticated by: SHELLIE PATEL Date: 2022-06-01 06:20 Normal [facility] XR DEXA BONE DENSITYon 05-31 XR DEXA BONE DENSITY EXAMINATION: XR DEXA BONE DENSITY, 05/31/2022 1:52 PM EDT HISTORY: Senile osteoporosis COMPARISON: DEXA bone densitometry 04/17/2010 TECHNIQUE: Dual-energy X-ray absorptiometry (DEXA) bone density study performed for the axial skeleton. FINDINGS: SPINE ANALYSIS: Average bone mineral density is 0.992 g/cm2. T-score (standard deviation relative to young adult mean): -1.6 . -5.5% change since prior study. HIP ANALYSIS: Lowest bone mineral density is within the left femoral neck, 0.799 g/cm2. T-score (standard deviation relative to young adult mean): -1.7 . +1.8% change since prior study. IMPRESSION: [employer] Classification: Osteopenia - Moderate Fracture Risk Electronically authenticated by: SHELLIE PATEL Date: 2022-05-31 15:14 Normal [facility] Vital Signs Date Time Vital Sign Value Performing Clinician Facility 06-14-2023 14:00-0500 Body height 157.48 cm Juan José Ball Other [facility] Other 06-14-2023 14:00-0500 Body mass index (BMI) [Ratio] 21.32 kg/m2 Juan José Ball Other [facility] Other 06-14-2023 14:00-0500 Body weight 52.89 kg Juan José Ball Other [facility] Other 06-14-2023 14:00-0500 Diastolic blood pressure 85 mm[Hg] Juan José Ball Other [facility] Other 06-14-2023 14:00-0500 Respiratory rate 12 /min Juan José Ball Other [facility] Other 06-14-2023 14:00-0500 Systolic blood pressure 130 mm[Hg] Juan José Ball Other [facility] Other 03-18-2023 13:30-0400 Body height 157.48 cm Juan José Ball Other [facility] Other 03-18-2023 13:30-0400 Body mass index (BMI) [Ratio] 21.29 kg/m2 Juan José Ball Other [facility] Other 03-18-2023 13:30-0400 Body weight 52.8 kg Juan José Ball Other [facility] Other 03-18-2023 13:30-0400 Diastolic blood pressure 83 mm[Hg] Juan José Ball Other [facility] Other 03-18-2023 13:30-0400 Respiratory rate 12 /min Juan José Ball Other [facility] Other 03-18-2023 13:30-0400 Systolic blood pressure 147 mm[Hg] Juan José Ball Other [facility] Other 01-19-2023 11:15-0400 Heart rate 70 /min Yandy Ragsdale [facility] 11-16-2022 14:30-0400 Body height 157.48 cm Juan José Ball Other [facility] Other 11-16-2022 14:30-0400 Body mass index (BMI) [Ratio] 22.06 kg/m2 Juan José Ball Other [facility] Other 11-16-2022 14:30-0400 Body weight 54.7 kg Juan José Ball Other [facility] Other 11-16-2022 14:30-0400 Diastolic blood pressure 78 mm[Hg] Juan José Ball Other [facility] Other 11-16-2022 14:30-0400 Respiratory rate 12 /min Juan José Ball Other [facility] Other 11-16-2022 14:30-0400 Systolic blood pressure 138 mm[Hg] Juan José Ball Other [facility] Other 11-23-2021 13:34-0400 Blood Pressure Location Mj Mendenhall Jr. [facility] [place] 11-23-2021 13:34-0400 Diastolic blood pressure 98 mm[Hg] Mj Mendenhall Jr. [facility] [place] 11-23-2021 13:34-0400 Heart rate 67 /min Mj Mendenhall Jr. [facility] [place] 11-23-2021 13:34-0400 Systolic blood pressure 150 mm[Hg] Mj Mendenhall Jr. [facility] [place] Encounters Encounter Date Encounter Type Care Provider Facility Start: 08-11-2023 ambulatory Yandy Ragsdale Facility:[facility] Start: 07-18-2023 End: 07-18-2023 ambulatory SHAIL[address] [facility] Start: 07-05-2023 End: 07[facility]05[facility]20[facility]: 07-04-[facility]23 End: 07-04-2023 ambulatory Juan José Arce Other [facility] Other Start: 07-04-2023 Telephone encounter Juan José Arce [facility] Start: 06-30-2023 End: 06-30-2023 ambulatory Juan José Arce Other [facility] Other Start: 06-30-2023 Telephone encounter Juan José Arce [facility] Start: 06-14-2023 End: 06-14-2023 ambulatory Juan José Ball Other [facility] Other Start: 06-14-2023 Patient encounter procedure Juan José Ball [facility] Start: 05-06-2023 End: 05-06-2023 ambulatory Juan José Ball Other [facility] Other Start: 05-06-2023 Telephone encounter Juan José Claude [facility] Start: 05-04-2023 End: 05-04-2023 ambulatory Juan José Ball Other [facility] Other Start: 05-04-2023 Office outpatient vi sit 15 minutes Juan José Arce [facility] Start: 03-18-2023 End: 03-18-2023 ambulatory Juan José Arce Other [facility] Other Start: 03-18-2023 Office outpatient vi sit 25 minutes Juan José Arce [facility] Start: 01-31-2023 End: 01-31-2023 ambulatory Juan José Arce Other [facility] Other Start: 01-31-2023 Telephone encounter Juan José Arce FP [facility] Start: 01-19-2023 End: 01-20-2023 ambulatory Yandy Ragsdale Facility:[facility] Start: 01-19-2023 End: 01-19-2023 Patient encounter procedure Yandy Ragsdale [facility] Start: 12-07-2022 End: 12-07-2022 ambulatory Juan José Arce Other [facility] Other Start: 12-07-2022 Telephone encounter Juan José ALEXANDER [facility] Start: 12-03-2022 End: 12-04-[address] JUAN JOSÉ ARCE Facility:[facility] Start: 11-30-2022 End: 11-30-2022 ambulatory JUAN [facility] Start: 11-16-2022 End: 11-16-2022 ambulatory Juan José Arce Other [facility] Other Start: 11-16-2022 Office outpatient vi sit 25 minutes Juan José Arce [facility] Start: 07-31-2022 End: 07-31-[address] JUAN JOSÉ ARCE Facility:[facility] Start: 06-04-[address] JUAN JOSÉ ARCE Facili ty:[facility] Start: 05-31-2022 End: 06-01-[address] JUAN JOSÉ ARCE Facility:[facility] Start: 11-23-2021 End: 11-23-2021 Patient encounter procedure Mj Mendenhall Jr. [facility] Start: 05-10-2017 End: 05-11-2017 Patient encounter procedure JUAN JOSÉ ARCE Facility:[facility] Procedures Date Procedure Procedure Detail Performing Clinician Start: 11-23-2021 Cystoscopy Mj raygoza Jr. Start: 01-05-2021 Cystoscopy Mj raygoza Jr. Start: 01-02-2016 Cysto/Lt stent removal Mj Mendenhall Jr. Start: 12-17-2015 Cysto, Lt RG, TURBT, Lt stent Mj Mendenhall Jr. 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 Start: 06-24-2014 Nephroureterectomy Li Ragsdale Start: 03-20-2014 Cysto, Rt RG, Ureter oscopy, Bladder bx, Rt Stent Mj Mendenhall Jr. Start: 05-02-2013 Cysto, Random Bladde r BX & Fulguration Mj Mendenhall Jr. Start: 02-14-2013 Cysto/TURBT, [place] B ladder bx & fulguration Mj Mendenhall Jr. Start: 01-17-2013 Transurethral resect ion of bladder neoplasm Mj Mendenhall Jr. Appendectomy Mj Jacobo Bilateral tubal ligation Mehrdad Mendenhall Jr. Cardiac pacemaker, d evice (physical object) Mj Mendenhall Jr. Cystoscopy Mj Jacobo Comment on above: 7/8/16 10/7/16 5/2205/02/17 05/01/18 01/21/14 01/03/15 05/05/15 11/24/15 HX Of BCG'S 2 Mj kitchen Comment on above: 2012 2013 Hysterectomy Mj Jacobo Screening for malign ant neoplasm of colon Juan José Arce Other Immunizations Immunization Date Immunization Notes Care Provider Antonio chance 06-14-2023 influenza, high dose seasonal, preservative-free Juan José Arce Other [facility] Other 05-18-2022 influenza virus vaccine, split virus (incl. purified surface antigen) Juan José Arce Other [facility] Other 09-29-2021 SARS-CoV-2 (COVID-19 ) mRNA-1273 vaccine Mj Mendenhall Jr. [facility] 05-05-2021 influenza virus vaccine, split virus (incl. purified surface antigen) Juan José Arce Other [facility] Other 09-29-2020 SARS-CoV-2 (COVID-19 ) mRNA-1273 vaccine Mj Mendenhall Jr. [facility] 09-01-2020 SARS-CoV-2 (COVID-19 ) mRNA-1273 vaccine Mj Mendenhall Jr. [facility] 05-19-2020 influenza virus vaccine, split virus (incl. purified surface antigen) Juan José Arce Other [facility] Other 05-21-2019 influenza virus vaccine, split virus (incl. purified surface antigen) Juan José Arce Other [facility] Other 05-02-2018 influenza virus vaccine, split virus (incl. purified surface antigen) Juan José Arce Other [facility] Other 05-16-2017 influenza virus vaccine, split virus (incl. purified surface antigen) Juan José Arce Other [facility] Other 05-21-2016 influenza virus vaccine, split virus (incl. purified surface antigen) Juan José Arce Other [facility] Other 05-13-2015 influenza virus vaccine, split virus (incl. purified surface antigen) Juan José Arce Other [facility] Other 05-13-2015 pneumococcal conjuga te vaccine, 13 valent Juan José Arce Other [facility] Other 05-24-2014 tetanus and diphther ia toxoids, adsorbed, preservative free, for adult use (5 Lf of tetanus toxoid and 2 Lf of diphtheria toxoid) Juan José Arce Other [facility] Other 05-21-2013 pneumococcal polysaccharide vaccine, 23 valent Juan José Arce Other [facility] Other 05-21-2013 tetanus and diphther ia toxoids, adsorbed, preservative free, for adult use (5 Lf of tetanus toxoid and 2 Lf of diphtheria toxoid) Juan José Arce Other [facility] Other Payers Date Payer Category Payer Medicare [id number] 2016 [employer] others) [id number] 1959 [employer] ( [employer] others) [id number] 1959 Private Health Insurance [id number] 1959 Self-pay 1940 Unknown [id number] 1940 Unknown [id number] 1940 Unknown [id number] 1940 Unknown [id number] 1940 Unknown [id number] 1940 Unknown [id number] 1940 Unknown [id number] Social History Date Type Detail Facility Start: 11-23-2021 End: 01-19-2023 Tobacco smoking status Never smoked tobacco (finding) [facility] [employer] Tobacco smoking status Never [facility] [employer] Sex Assigned At Female [facility] [employer] Functional Status Date Assessment Result Facility 01-19-2023 Functional Status N/A [facility] Clinical Notes 11-23-2021 to 07-18-2023 Note Date & Type Note Facility 07-18-2023 Note [facility] Consult Note Reason for visit: follow up atrial flutter, PAF, hypertension, and device check 07/18/23: She is here for 6-month follow-up She is been feeling well with no complaints of chest pain, shortness of breath, MCCARTNEY, LE edema, lightness, dizziness, palpitations PCP is adjusting blood pressure medication given her blood pressure 110-120 and she felt fatigued, her symptoms improved when her blood pressure went up 11/30/[address] urrutia Patient here for 1 year follow up atrial flutter, PAF, hypertension, and device check. Had carotid US in May 2022. She has upcoming routine labs for PCP. Denies chest pain. HPI: Rebecca Hays is a 83 y.o. year old with past medical history of paroxysmal atrial fib, permanent pacemaker, COPD, hypertension, hyperlipidemia who is known to have atrial flutter, Patient denies chest pain, admits typical shortness of breath related to her asthma, denies orthopnea, palpitations, She was previously scheduled for a flutter ablation which she deferred as she did not want to get the device checked. she is doing reasonably well. Device check on 11/30/2022 she does have increased high atrial rates but overall her burden is low. compared to the previous check she now has both atrial flutter which has degenerated into atrial fibrillation. however this does not result in rapid ventricular rate. 06/15/2022 shows a presenting rhythm to be a baseline V sensed with underlying sinus bradycardia 35 bpm. Her atrial threshold is 0.7 @0.4 ms and RV threshold is 1.8 @0.4 ms. she is paced 99% in the atrium and less than 1% in the ventricle since November 2021 there has been no episodes of high atrial rate concerning for atrial flutter or fib EKG 11/17/2018 a sensed lower elwha conduction 05/10/2017 AV sequential pacing 12/03/2016 shows sinus rhythm 12/08/2015 sinus rhythm 05/12/2015 shows sinus rhythm Device check that was performed on 12/02/2020 reveals a [employer] Accolade device that was implanted on 05/10/2017 this revealed good thresholds with the evidence of high atrial rate with significant of time in what appeared to be a regular rhythm such as atrial flutter with cycle length of this appears to be closer to 280 ms. Stress test from 12/15/2015 did not show any evidence of ischemia with a EF noted at 70% PMH: Past Medical History: Diagnosis Date Abnormal ECG Arrhythmia Asthma Atrial fibrillation (CMS/HCC) Atrial flutter (CMS/HCC) Cancer (CMS/HCC) CHF (congestive heart failure) (CMS/HCC) Chronic kidney disease Conduction disorder of the heart Hydronephrosis Hyperlipidemia Hypertension Tachycardia PSH: Past Surgical History: Procedure Laterality Date INSERT / REPLACE / REMOVE PACEMAKER TUBAL LIGATION SH: Social Determinants of Health Tobacco Use: Low Risk (07/18/2023) Patient History Smoking Tobacco Use: Never Smokeless Tobacco Use: Never Passive Exposure: Not on file Alcohol Use: Not on file Financial Resource Strain: Not on file Food Insecurity: Not on file Transportation Needs: Not on file Physical Activity: Not on file Stress: Not on file Social Connections: Not on file Intimate Partner Violence: Not on file Depression: Not on file Housing Stability: Not on file Allergies: Allergies Allergen Reactions Iodine Other Povidone-Iodine Other Sulfa (Sulfonamide Antibiotics) Other Weight: 49.9kg Visit Vitals Pulse 66 Ht 1.575 m (5' 2 ) Wt 49.9 kg (110 lb) SpO2 98% BMI 20.12 kg/m??? Smoking Status Never BSA 1.48 m??? Meds: Current Outpatient Medications on File Prior to Visit Medication Sig Dispense Refill aspirin 81 mg EC tablet in the morning. atorvastatin (Lipitor) 40 mg tablet atorvastatin 40 mg tablet TAKE 1 TABLET DAILY IN EVENING ipratropium-albuteroL (Combivent Respimat) 20-100 mcg/actuation inhaler Combivent Respimat 20 mcg-100 mcg/actuation solution for inhalation INHALE 1 PUFF BY MOUTH FOUR TIMES DAILY lisinopriL-hydrochlorothiazide 10-12.5 mg tablet lisinopril 10 mg-hydrochlorothiazide 12.5 mg tablet TAKE 1 TABLET BY MOUTH DAILY loratadine (Claritin) 10 mg tablet in the morning. montelukast (Singulair) 10 mg tablet montelukast 10 mg tablet TAKE 1 TABLET BY MOUTH EVERY DAY sotalol AF 120 mg tablet Take 120 mg by mouth in the morning. No current facility-administered medications on file prior to visit. ROS: Cardio Basic Cardiovascular Symptoms: no lightheadedness, no leg edema, no syncope, no orthopnea, no PND, no claudication, Constitutional Constitutional: no fever, no night sweats, no significant weight gain, no significant weight loss, no exercise intolerance Eyes Eyes: no dry eyes, no irritation, no vision change ENMT Ears: no difficulty hearing, no ear pain Nose: no frequent nosebleeds, Mouth/Throat: no sore throat, no bleeding gums, no snoring, no dry mouth, no mouth ulcers, no oral abnormalities, no teeth problems Respi (more content not included)... [facility] 07-18-2023 Note Patient here for 6 m o follow up PAF, hypertension, and hyperlipidemia. Device was interrogated 2 weeks ago in the office. She denies chest pain, palpitations, and lightheadedness/syncope. Had carotid US last month. Review of Systems Cardiovascular: Positive for dyspnea on exertion (asthma). All other systems reviewed and are negative. [facility] 07-04-2023 Evaluation note Encounter Date Diagnosis Assessment Notes Jul, Paroxysmal atrial fibrillation (ICD-10 - I48.0) [facility] Other 11-30-2023 Evaluation note* Encounter Date Diagnosis Assessment Notes Treatment Notes Treatment Clinical Notes Jun, Paroxysmal atrial fibrillation (ICD-10 - I48.0) [facility] Other 11-14-2023 Evaluation note* Encounter Date Diagnosis Assessment Notes Treatment Notes Treatment Clinical Notes Jun, Medicare annual wellness visit, subsequent (ICD-10 - Z00.00) Personalized health advice was given to the beneficiary including a written plan for screenings discussed and provided. Advanced care planning reviewed and/or information given as requested. Additional counseling was provided here today in regards to, [ ]. The above visit was performed by [ ], under direct supervision of [ ]. Document reviewed and amended by provider signed below. Jun, Primary hypertension (ICD-10 - I10) This patient is instructed to consume a healthy, low-fat, low-salt diet. They are also encouraged to continue exercise to achieve/maintain a normal BMI. Jun, Elevated cholesterol (ICD-10 - E78.00) Instructed on diet and exercise with continued statin therapy.Discussed the beneficial effects of lowering cholesterol in reducing the risk for cerebrovascular and cardiovascular disease. Jun, Stage 3a chronic kidney disease (ICD-10 - N18.31) The patient is instructed on adequate control of hypertension and diabetes, if appropriate. They are also educated on the associated risks of NSAIDs and PPI use with kidney disease. They were instructed on adequate fluid balance and to avoid dehydration. Jun, Paroxysmal atrial fibrillation (ICD-10 - I48.0) This patient is in NSR or rate controlled. This patient is anticoagulated to prevent thromboembolic events. They are maintaining regular scheduled appts with their slps. No bleeding complications Jun, Mild persistent asthma, uncomplicated (ICD-10 - J45.30) No ER visits for AE. Continue ARTURO as needed for cough Jun, Age-related osteoporosis without current pathological fracture (ICD-10 - M81.0) Ca and Vit D supplements. Weight bearing exercise. On medication holiday, recommend checking DEXA Jun, Bruit of right carotid artery (ICD-10 - R09.89) Continue primary prevention measures. Check carotid US Jun, Screening mammography declined (ICD-10 - Z53.20) Instructed patient on monthly SBE and yearly mammograms. [facility] Other 10-04-2023 Evaluation note* Encounter Date Diagnosis Assessment Notes Treatment Notes Treatment Clinical Notes May, Acute bronchitis due to other specified organisms (ICD-10 - J20.8) Instructed to use Robitussin or Mucinex for cough, saline or Flonase NS for congestion, Tylenol for pain and fever. May, Mild intermittent asthma with acute exacerbation (ICD-10 - J45.21) Instructed to begin antibiotics Instructed to increase use of ARTURO to every 4 hours as needed for cough and dyspnea May, Suspected COVID-19 virus infection (ICD-10 - Z20.822) Instructed to obtain at home COVID test - update office w/ results Self isolate at home. - Cannot work - avoid contact with others - avoid pets - wipe counters, door knobs if touched - if can't avoid leaving home, must wear mask to protect others - need to stay isolated for 10 days from onset of symptoms - to discontinue isolation must be 5 days AND must be without fever for 24 hours AND symptoms must be improving. Always wear a mask in public places for complete 10 days [facility] Other 08-18-2023 Evaluation note* Encounter Date Diagnosis Assessment Notes Treatment Notes Treatment Clinical Notes Mar, Stage 3a chronic kidney disease (ICD-10 - N18.31) The patient is instructed on adequate control of hypertension and diabetes, if appropriate. They are also educated on the associated risks of NSAIDs and PPI use with kidney disease. They were instructed on adequate fluid balance and to avoid dehydration. Mar, Primary hypertension (ICD-10 - I10) This patient is instructed to consume a healthy, low-fat, low-salt diet. They are also encouraged to continue exercise to achieve/maintain a normal BMI. Mar, Paroxysmal atrial fibrillation (ICD-10 - I48.0) This patient is in NSR or rate controlled. This patient is taking ASA to prevent thromboembolic events. They are maintaining regular scheduled appts with their slps. Mar, Elevated cholesterol (ICD-10 - E78.00) Instructed on diet and exercise with continued statin therapy.Discussed the beneficial effects of lowering cholesterol in reducing the risk for cerebrovascular and cardiovascular disease. Mar, Mild persistent asthma, uncomplicated (ICD-10 - J45.30) Some difficulty this summer due to poor air quality. Tolerating w/o ER visits. No change in treatment Mar, Asymptomatic bilateral carotid artery stenosis (ICD-10 - I65.23) Carotid US: 05/2022 1. right carotid bulb resulting in 50-69% 2. Mild plaque within left carotid artery Continue primary prevention measures. Healthy diet, exercise. Mar, Malignant neoplasm of overlapping sites of bladder (ICD-10 - C67.8) No s/s recurrence. Continue f/u w/ Oncology Mar, Presence of cardiac pacemaker (ICD-10 - Z95.0) Continue PM checks. [facility] Other 07-03-2023 Evaluation note* Encounter Date Diagnosis Assessment Notes Treatment Notes Treatment Clinical Notes Jan, Primary hypertension (ICD-10 - I10) [facility] Other 06-21-2023 Hospital Discharge instructions Patient Education 01/19/2023 11:43:59 Cancer Screening for Women Cancer Screening for Women A cancer screening is a test or exam that checks for cancer. Your health care provider will recommend specific cancer screenings based on your age, medical history (including risk factors), and family history of cancer. Work with your health care provider to create a cancer screening schedule that protects your health. Who should have screening? All women should be considered for screening of certain cancers, including breast cancer, cervical cancer, colorectal cancer, and skin cancer. Your health care provider may recommend screenings for other types of cancer if: You had cancer before. You have a family member with cancer. You have abnormal genes that could increase the risk of cancer. You have risk factors for certain cancers, such as current or past use of tobacco products, or being overweight. When you should be screened for cancer depends on: Your age. Your medical history and your family's medical history. Certain lifestyle factors, such as smoking or other use of tobacco products. Environmental exposure, such as to asbestos. How is screening done? Breast cancer Breast cancer screening is done with a test that takes images of breast tissue (mammogram). Here are some screening guidelines for women at average risk: When you are age 40 44, you will be given the choice to start having mammograms. When you are age 45 54, you should have a mammogram every year. You may start having mammograms before age 45 if you have risk factors for breast cancer, such as having an immediate family member with breast cancer. At age 55 or older, you should have a mammogram every 1 2 years for as long as you are in good health and have a life expectancy of 10 years or longer. It is important to know what your breasts look and feel like so you can report any changes to your health care provider. Cervical cancer All women at average risk should be considered for screening for cervical cancer starting no later than age 25 and continuing until age 65. Screening should not begin earlier than age 21. You will have tests every 3 5 years, depending on your results and the type of screening test. Talk with your health care provider about which screening test is right for you and how often you should be screened. ?Cervical cancer screening is done with an HPV (human papillomavirus) test to identify the virus that causes cervical cancer. To perform the test, a health care provider takes a swab of cells from yourcervix during a pelvic exam. This test may be performed along with a Pap test. This testchecks forabnormalities in the lowest part of the uterus (cervix). ?If you have had the HPV vaccine, you will still be screened for cervical cancer and follow normal screening recommendations. You do not need to be screened for cervical cancer if any of the following apply to you: You are older than age 65 and you have had normal screening tests in the past 10 years with no serious cervical precancer or cancer in the last 25 years. Your cervix and uterus have been removed, and you have never had cervical cancer or abnormal cells that could become cancer (precancerous cells). Colorectal cancer All adults should have screenings starting at age 45 and continuing until age 75. Your health care provider may recommend screening before age 45. You will have tests every 1 10 years, depending on your results and the type of screening test. People at increased risk should start screening at an earlier age. Talk with your health care provider about which screening test is right for you and how often you should be screened. Colorectal cancer screening looks for cancer or for growths called polyps that often form before cancer starts. Tests to look for cancer or polyps include: Colonoscopy or flexible sigmoidoscopy. For these procedures, a flexible tube with a small camera isinserted into the rectum. CT colonography. This test uses X-rays and a contrast dye to check the colon for polyps. If a polypis found, you may need to have a colonoscopy so the polyp can be located and removed. Tests to look for cancer in the stool (feces) include: Guaiac-based fecal occult blood test (FOBT). This test can find blood in stool. It can be done at home with a kit. Fecal immunochemical test (FIT). This test can find blood in stool. For this test, you will need tocollect stool samples at home. Stool DNA test. This test looks for blood in stool and any changes in DNA that can lead to colon cancer. For this test, you will need to collect a stool sample at home and send it to a lab. Endometrial cancer There is no standard screening test for endometrial cancer, and women at average risk do not routinely need to have this screening. Talk with your health care provider about whether screening is right for you. If it is, this screening is performed through: Endometrial tissue biopsy. This tests a sample of tissue taken from the lining of the uterus. Vaginal ultrasound. If you are at increased risk for endometrial cancer, you may need to have these tests more often than normal. You are at increased risk if: You have a family history of ovarian, uterine, or colon cancer. You are taking tamoxifen, a medicine used to treat breast cancer. You have certain types of colon cancer. If you have reached menopause, it is especially important to talk with your health care provider about any vaginal bleeding or spotting. Screening for endometrial cancer is not recommended for women who do not have symptoms of the cancer, such as vaginal bleeding. Lung cancer Lung cancer screening is done with a CT scan that looks for abnormal changes in the lungs. Discuss lung cancer screening with your health care provider if you are 50 80 years old and if any of the following apply to you: You currently smoke. You used to smoke heavily. You have a smoking history of 1 pack of cigarettes a day for 20 years or 2 packs a day for 10 years. You have quit smoking within the past 15 years. You may need to be screened every year if you smoke heavily or if you used to smoke. Skin cancer Skin cancer screening is done by checking the skin for unusual moles or spots and any changes in existing moles. Your health care provider should check your skin for signs of skin cancer at every physical exam. You should check your skin every month and tell your health care provider right away if anything looks unusual. Women with a [id number] risk for skin cancer may want to see a tissue specialist (shell machine operator) for an annual body check. What are the benefits of screening? Cancer screening is done to look for cancer in the very early stages, before it spreads and becomesharder to treat and before you would start to notice symptoms. Finding cancer early improves the chances of successful treatment. It may save your life. Where to find more information [place] [employer]: www.cancer.org Centers for Disease Control and Prevention: www.cdc.gov National Cancer [place]: www.cancer.gov U.S. Department of Health and Human Services: www.womenshealth.gov Contact a health care provider if: You have concerns about any signs or symptoms of cancer. These may include: Skin problems. You may have: ?Moles of an unusual shape or color. ?Changes in existing moles. ?A sore on your skin that does not heal. Tiredness (fatigue) that does not go away. Losing weight without trying. Blood in your urine or stool. Problems with coughing or breathing. These may include: ?Coughing or trouble breathing that does not go away. ?Coughing up blood. Lumps or other changes in your breasts. Vaginal bleeding, spotting, or changes in your periods. Frequent pain or cramping in your abdomen. Summary Your health care provider will recommend specific cancer screenings based on your age, medical history, and family history of cancer. Work with your health care provider to create a cancer screening schedule that protects your health. Finding cancer early improves the chances of successful treatment. It may save your life. Contact a health care provider if you have concerns about any signs or symptoms of cancer. This information is not intended to replace advice given to you by your health care provider. Make sure you discuss any questions you have with your health care provider. Document Revised: 12/14/2021 Document Reviewed: 06/13/2020 [employer] Patient Education 2022 3yy game platform. Follow Up Care 11/03/2022 13:49:34 With:Jn MCCRARY, MACY Glass, URO Address: [address], [place] [phone] When:Within 3 Month(s) Comments:[facility] 05-02-2023 NotePatient here for 1 year follow up atrial flutter, PAF, hypertension, and device check. Had carotid US in May 2022. She has upcoming routine labs for PCP. Denies chest pain. Review of Systems Cardiovascular: Positive for dyspnea on exertion (asthma). Respiratory: Positive for shortness of breath. Neurological: Positive for light-headedness. All other systems reviewed and are negative. [place] [facility]rophys[facility] Consult Note Reason for visit: F/u HPI: Rebecca Hays is a 82 y.o. year old with past medical history of paroxysmal atrial fib, permanent pacemaker, COPD, hypertension, hyperlipidemia who is known to have atrial flutter, Patient denies chest pain, admits typical shortness of breath related to her asthma, denies orthopnea, palpitations, She was previously scheduled for a flutter ablation which she deferred as she did not want to get the device checked. she is doing reasonably well. Device check on 11/30/2022 she does have increased high atrial rates but overall her burden is low. compared to the previous check she now has both atrial flutter which has degenerated into atrial fibrillation. however this does not result in rapid ventricular rate. 06/15/2022 shows a presenting rhythm to be a baseline V sensed with underlying sinus bradycardia 35 bpm. Her atrial threshold is 0.7 @0.4 ms and RV threshold is 1.8 @0.4 ms. she is paced 99% in the atrium and less than 1% in the ventricle since November 2021 there has been no episodes of high atrial rate concerning for atrial flutter or fib EKG 11/17/2018 a sensed lower elwha conduction 05/10/2017 AV sequential pacing 12/03/2016 shows sinus rhythm 12/08/2015 sinus rhythm 05/12/2015 shows sinus rhythm Device check that was performed on 12/02/2020 reveals a [employer] Accolade device that was implanted on 05/10/2017 this revealed good thresholds with the evidence of high atrial rate with significant of time in what appeared to be a regular rhythm such as atrial flutter with cycle length of this appears to be closer to 280 ms. Stress test from 12/15/2015 did not show any evidence of ischemia with a EF noted at 70% PMH: Past Medical History: Diagnosis Date Abnormal ECG Arrhythmia Asthma Atrial fibrillation (CMS/HCC) Atrial flutter (CMS/HCC) Cancer (CMS/HCC) CHF (congestive heart failure) (CMS/HCC) Chronic kidney disease Conduction disorder of the heart Hydronephrosis Hyperlipidemia Hypertension Tachycardia PSH: Past Surgical History: Procedure Laterality Date INSERT / REPLACE / REMOVE PACEMAKER TUBAL LIGATION SH: Social Determinants of Health Tobacco Use: Low Risk Smoking Tobacco Use: Never Smokeless Tobacco Use: Never Passive Exposure: Not on file Alcohol Use: Not on file Financial Resource Strain: Not on file Food Insecurity: Not on file Transportation Needs: Not on file Physical Activity: Not on file Stress: Not on file Social Connections: Not on file Intimate Partner Violence: Not on file Depression: Not on file Housing Stability: Not on file Allergies: Allergies Allergen Reactions Povidone-Iodine Other Sulfa (Sulfonamide Antibiotics) Other Weight: 54.4kg Visit Vitals BP 146/89 (BP Location: Left arm, Patient Position: Sitting) Pulse 61 Ht 1.575 m (5' 2 ) Wt 54.4 kg (120 lb) SpO2 95% BMI 21.95 kg/m??? Smoking Status Never BSA 1.54 m??? Meds: Current Outpatient Medications on File Prior to Visit Medication Sig Dispense Refill aspirin 81 mg EC tablet in the morning. atorvastatin (Lipitor) 40 mg tablet atorvastatin 40 mg tablet TAKE 1 TABLET DAILY IN EVENING ipratropium-albuteroL (Combivent Respimat) 20-100 mcg/actuation inhaler Combivent Respimat 20 mcg-100 mcg/actuation solution for inhalation INHALE 1 PUFF BY MOUTH FOUR TIMES DAILY lisinopriL-hydrochlorothiazide 10-12.5 mg tablet lisinopril 10 mg-hydrochlorothiazide 12.5 mg tablet TAKE 1 TABLET BY MOUTH DAILY loratadine (Claritin) 10 mg tablet in the morning. montelukast (Singulair) 10 mg tablet montelukast 10 mg tablet TAKE 1 TABLET BY MOUTH EVERY DAY sotalol AF 120 mg tablet Take 120 mg by mouth in the morning. No current facility-administered medications on file prior to visit. ROS: Cardio Basic Cardiovascular Symptoms: no lightheadedness, no leg edema, no syncope, no orthopnea, no PND, no claudication, Constitutional Constitutional: no fever, no night sweats, no significant weight gain, no significant weight loss, no exercise intolerance Eyes Eyes: no dry eyes, no irritation, no vision change ENMT Ears: no difficulty hearing, no ear pain Nose: no frequent nosebleeds, Mouth/Throat: no sore throat, no bleeding gums, no snoring, no dry mouth, no mouth ulcers, no oral abnormalities, no teeth problems Respiratory Respiratory: no cough, no wheezing, no coughing up blood, no sleep apnea Musculoskeletal Musculoskeletal: no muscle aches, no muscle weakness, joint pain+, no back kelly (more content not included)...[facility]04-18-2023 Evaluation note* Encounter Date Diagnosis Assessment Notes Treatment Notes Treatment Clinical Notes Oct, Stage 3a chronic kidney disease (ICD-10 - N18.31) The patient is instructed on adequate control of hypertension and diabetes, if appropriate. They are also educated on the associated risks of NSAIDs and PPI use with kidney disease. They were instructed on adequate fluid balance and to avoid dehydration. Oct, Primary hypertension (ICD-10 - I10) This patient is instructed to consume a healthy, low-fat, low-salt diet. They are also encouraged to continue exercise to achieve/maintain a normal BMI. Oct, Paroxysmal atrial fibrillation (ICD-10 - I48.0) This patient is in NSR or rate controlled. This patient is anticoagulated to prevent thromboembolic events. They are maintaining regular scheduled appts with their slps. Oct, Elevated cholesterol (ICD-10 - E78.00) Diet and exercise with continued statin therapy. Oct, Mild persistent asthma, uncomplicated (ICD-10 - J45.30) Continue mucinex as needed. Hydrate w/ water. Continue Combivent bid w/ qid as needed No ER/hosp visits for AECOPD Oct, Asymptomatic bilateral carotid artery stenosis (ICD-10 - I65.23) Carotid US: 05/2022 1. right carotid bulb resulting in 50-69% 2. Mild plaque within left carotid artery Continue antiplatelet therapy and Statin. Control BP Serial Carotid US for moderate stenosis Oct, Malignant neoplasm of overlapping sites of bladder (ICD-10 - C67.8) No s/s recurence f/u Urology for yearly scopes Oct, Presence of cardiac pacemaker (ICD-10 - Z95.0) Continue PM checks w/ Cardiology Oct, High risk medication use (ICD-10 - Z79.899) [facility] Other 04-25-2022 Hospital Discharge instructions Patient Education 11/23/2021 13:52:44 Cystoscopy Cystoscopy Cystoscopy is a procedure that is used to help diagnose and sometimes treat conditions that affect the lower urinary tract. The lower urinary tract includes the bladder and the urethra. The urethra is the tube that drains urine from the bladder. Cystoscopy is done using a thin, tube-shaped instrument with a light and camera at the end (cystoscope). The cystoscope may be hard or flexible, depending on the goal of the procedure. The cystoscope is inserted through the urethra, into the bladder. Cystoscopy may be recommended if you have: Urinary tract infections that keep coming back. Blood in the urine (hematuria). An inability to control when you urinate (urinary incontinence) or an overactive bladder. Unusual cells found in a urine sample. A blockage in the urethra, such as a urinary stone. Painful urination. An abnormality in the bladder found during an intravenous pyelogram (IVP) or CT scan. Cystoscopy may also be done to remove a sample of tissue to be examined under a microscope (biopsy). Tell a health care provider about: Any allergies you have. All medicines you are taking, including vitamins, herbs, eye drops, creams, and kwqg-cqi-hlxmxry medicines. Any problems you or family members have had with anesthetic medicines. Any blood disorders you have. Any surgeries you have had. Any medical conditions you have. Whether you are or may be . What are the risks? Generally, this is a safe procedure. However, problems may occur, including: Infection. Bleeding. Allergic reactions to medicines. Damage to other structures or organs. What happens before the procedure? Ask your health care provider about: ?Changing or stopping your regular medicines. This is especially important if you are taking diabetes medicines or blood thinners. ?Taking medicines such as aspirin and ibuprofen. These medicines can thin your blood. Do not take these medicines unless your health care provider tells you to take them. ?Taking hyhe-vsk-sklvkoe medicines, vitamins, herbs, and supplements. Follow instructions from your health care provider about eating or drinking restrictions. Ask your health care provider what steps will be taken to help prevent infection. These may include: ?Washing skin with a germ-killing soap. ?Taking antibiotic medicine. You may have an exam or testing, such as: ? X-rays of the bladder, urethra, or kidneys. ?Urine tests to check for signs of infection. Plan to have someone take you home from the hospital or clinic. What happens during the procedure? You will be given one or more of the following: ?A medicine to help you relax (sedative). ?A medicine to numb the area (local anesthetic). The area around the opening of your urethra will be cleaned. The cystoscope will be passed through your urethra into your bladder. Germ-free (sterile) fluid will flow through the cystoscope to fill your bladder. The fluid will stretch your bladder so that your health care provider can clearly examine your bladder cheung. Your doctor will look at the urethra and bladder. Your doctor may take a biopsy or remove stones. The cystoscope will be removed, and your bladder will be emptied. The procedure may vary among health care providers and hospitals. What can I expect after the procedure? After the procedure, it is common to have: Some soreness or pain in your abdomen and urethra. Urinary symptoms. These include: ?Mild pain or burning when you urinate. Pain should stop within a few minutes after you urinate. This may last for up to 1 week. ?A small amount of blood in your urine for several days. ?Feeling like you need to urinate but producing only a small amount of urine. Follow these instructions at home: Medicines Take iktw-rkf-orzfsxz and prescription medicines only as told by your health care provider. If you were prescribed an antibiotic medicine, take it as told by your health care provider. Do notstop taking the antibiotic even if you start to feel better. General instructions Return to your normal activities as told by your health care provider. Ask your health care provider what activities are safe for you. Do not drive for 24 hours if you were given a sedative during your procedure. Watch for any blood in your urine. If the amount of blood in your urine increases, call your healthcare provider. Follow instructions from your health care provider about eating or drinking restrictions. If a tissue sample was removed for testing (biopsy) during your procedure, it is up to you to get your test results. Ask your health care provider, or the department that is doing the test, when yourresults will be ready. Drink enough fluid to keep your urine pale yellow. Keep all follow-up visits as told by your health care provider. This is important. Contact a health care provider if you: Have pain that gets worse or does not get better with medicine, especially pain when you urinate. Have trouble urinating. Have more blood in your urine. Get help right away if you: Have blood clots in your urine. Have abdominal pain. Have a fever or chills. Are unable to urinate. Summary Cystoscopy is a procedure that is used to help diagnose and sometimes treat conditions that affect the lower urinary tract. Cystoscopy is done using a thin, tube-shaped instrument with a light and camera at the end. After the procedure, it is common to have some soreness or pain in your abdomen and urethra. Watch for any blood in your urine. If the amount of blood in your urine increases, call your healthcare provider. If you were prescribed an antibiotic medicine, take it as told by your health care provider. Do notstop taking the antibiotic even if you start to feel better. This information is not intended to replace advice given to you by your health care provider. Make sure you discuss any questions you have with your health care provider. Document Released: 07/15/2001 Document Revised: 07/10/2019 Document Reviewed: 07/10/2019 [employer] Patient Education 2020 [employer] Follow Up Care 11/03/2021 15:16:19 With:Abdirashid Lundberg MD, Mj Trejo [facility] Address: [facility] [address], [place] [address]- When:11/23/2022 Comments:Cysto [facility] 04-25-2022 Evaluation + Plan note Diagnostic Tests Pending * Urine Cytology ([facility]) 11/23/21 [facility] Evaluation noteNo InformationNoPanorama9 Other Hisodzn general Narrative - Reported* Type Description Date Medical History Colon cancer screening Medical History Colon polyp Medical History Asymptomatic bilateral carotid a rtery stenosis Medical History Presence of cardiac pacemaker Medical History Simple chronic bronchitis Medical History Stage 3a chronic kidney disease Medical History Elevated cholesterol Medical History Primary hypertension Medical History Mild persistent asthma, uncompli cated Medical History Paroxysmal atrial fibrillation Medical History Malignant neoplasm of overlappin g sites of bladder Surgical History CARDIAC PACEMAKER/DEFIBRILLATOR 2010 Surgical History APPENDECTOMY Surgical History CYSTO W/ BLADDER Hospitalization History SEE SURGICAL [facility] Other Hisdoml general Narrative - Reported* Type Description Date Surgical History CARDIAC PACEMAKER/DEFIBRILLATOR 2010 Surgical History APPENDECTOMY Surgical History CYSTO W/ BLADDER Hospitalization History SEE SURGICAL DipJar Other Hisezbr general Narrative - Reported* Type Description Date Medical History Colon cancer screening Medical History Colon polyp Medical History Asymptomatic bilateral carotid a rtery stenosis Medical History Presence of cardiac pacemaker Medical History Simple chronic bronchitis Medical History Stage 3a chronic kidney disease Medical History Elevated cholesterol Medical History Primary hypertension Medical History Mild persistent asthma, uncompli cated Medical History Paroxysmal atrial fibrillation Medical History Malignant neoplasm of overlappin g sites of bladder Medical History Mucopurulent chronic bronchitis (resolved 05/04/2021) Surgical History CARDIAC PACEMAKER/DEFIBRILLATOR 2010 Surgical History APPENDECTOMY Surgical History CYSTO W/ BLADDER Hospitalization History SEE SURGICAL HX [facility] Other Hospital course Narrative No data available for this section [facility] Progress note No data available for this section [facility] Summary Purpose Family History No Family History Records FoundNo Family History Records FoundNo Family History Records FoundNo Family History Records Found Advance Directives No Advanced Directives Records FoundNo Advanced Directives Records FoundNo Advanced Directives Records FoundNo Advanced Directives Records Found Additional Source Comments INFORMATION SOURCE (unrecogn ized section and content) DATE CREATED AUTHOR 07/03/2020 [facility] DATE CREATED AUTHOR AUTHOR'S ORGANIZ ATION 12/10/2022 [facility] [place] [facility] DATE CREATED AUTHOR AUTHOR'S ORGANIZ ATION 07/07/2023 [facility] DATE CREATED AUTHOR AUTHOR'S ORGANIZ ATION 07/18/[address] [facility] REASON FOR VISIT (unrecogniz ed section and content) 6 MONTH FOLLOW UPLab Results refill4 month Follow upCOVID-Positivemucus chest congestionWellnessRefillrefill Patient Care team informatio n (unrecognized section and content) Personnel Name: JUAN JOSÉ ARCE DO Address: Address: [facility] [place], [place] [address] FOR RECORDS PERTAINING TO PATIENTS WHO ARE OR HAVE BEEN ENROLLED IN A CHEMICAL DEPENDENCY/SUBSTANCEABUSE PROGRAM, SOME INFORMATION MAY BE OMITTED. This clinical summary was aggregated from multiple sources. Caution should be exercised in using it in the provision of clinical care. This summary normalizes information from multiple sources, and as a consequence, information in this document may materially change the coding, format and clinical context of patient data. In addition, data may be omitted in some cases. CLINICAL DECISIONS SHOULD BE BASED ON THE PRIMARY CLINICAL RECORDS. [facility]. provides no warranty or guarantee of the accuracy or completeness of information in this document.
--- NOTE | 2023-08-02 10:58 | CA_ITS ---
Patient Name: TESSIE EL MR#: [id number] : 1940 Exam Date: 08/02/2023 Ordering Doctor: SHAILESH COATES ECHOCARDIOGRAM REPORT PROCEDURE: CA ECHO DOPPLER COMPLETE INDICATIONS: Atrial fibrillation COMPARISON: None. DESCRIPTION: COMPLETE ECHOCARDIOGRAM Real-time transthoracic echocardiography with 2D, M-mode, spectral and color flow Doppler performed. QUALITY: Technical quality was good. LEFT VENTRICLE: Normal chamber size. Normal left ventricular wall thickness. LV EF: Global left ventricular systolic function is low normal limits; visually estimated ejection fraction is 50 to 55%. No wall motion abnormalities. DIASTOLIC: Grade I diastolic dysfunction. ATRIAL SEPTUM: Inadequately seen. LEFT ATRIUM: Normal chamber size. RIGHT ATRIUM: Normal chamber size. RIGHT VENTRICLE: Normal chamber size. Normal right ventricular systolic function. Pacer wire present. TRICUSPID VALVE: Normal mobility and thickness. Mild regurgitation. No evidence of pulmonary hypertension. RVSP 29mmHg MITRAL VALVE: Normal mobility and thickness. No evidence of mitral valve stenosis. There is no mitral annular calcification. Mild mitral regurgitation. AORTIC VALVE: Normal trileaflet appearance. No visible sclerosis. Normal leaflet mobility. No evidence of aortic valve stenosis. Mild aortic regurgitation. AORTIC ROOT: Normal diameter and appearance. The ascending aorta appears dilated. PULMONIC VALVE: Normal thickness and mobility. No stenosis. Mild regurgitation. PERICARDIUM: Trivial pericardial effusion. IVC: Collapses with inspirations. Normal size. CONCLUSION: 1. Global left ventricular systolic function is at low normal limits; visually estimated ejection fraction is 50 to 55% 2. The right ventricle is normal in size and systolic function 3. Grade 1 diastolic dysfunction 4. Mild tricuspid regurgitation 5. Mild mitral regurgitation 6. Mild aortic regurgitation 7. Mild pulmonic regurgitation 8. Trivial pericardial effusion Adult Echocardiography Procedure Report Left Ventricle LVEDD (3.7 - 5.6 cm): 4.21 cm LVESD (2.2 - 4.0 cm): 3.13 cm LVIVS thickness (0.6 - 1.2 cm): 0.70 cm LVPW thickness (0.5 - 1.0 cm): 0.73 cm e': 0.06 m/s E - e': 7.82 LVOT Max Gradient: 2.14 mm[Hg] LVOT Area (cm2): 0.73 m/s Peak Velocity (LVOT): 0.73 m/s Mean Velocity (LVOT): 0.51 m/s LVOT Diameter 1.88 cm Left Atrium LA Volume Index (2D A2C): 27.98 ml/m2 Left Atrium Systolic Dimension: 2.77 cm Mitral Valve MV E to A Ratio: 0.57 Mitral Valve A-Wave Peak Velocity: 0.84 m/s Mitral Valve E-Wave Peak Velocity: 0.48 m/s Right Ventricle RV Internal Diastolic Dimension: 2.70 cm Aorta AO Root Diam: 3.09 cm Ascending Ao Diam: 3.38 cm Aortic Valve AoV Area (Peak Homero): 1.62 cm2, 1.62 cm2 AoV Area (VTI): 1.80 cm2, 1.80 cm2 Deceleration Winston: 1.61 m/s2 Pressure Half-Time: 649.50 ms Peak Velocity(Antegrade Flow): 1.26 m/s Peak Gradient(Antegrade Flow): 6.34 mm[Hg] Mean Velocity(Antegrade Flow): 0.85 m/s Mean Gradient(Antegrade Flow): 3.34 mm[Hg] Velocity Time Integral: 27.45 cm Tricuspid Valve Peak Velocity (Regurgitant Flow): 2.33 m/s, 2.57 m/s, 2.32 m/s Pulmonic Valve Peak Velocity: 0.82 m/s Peak Gradient: 2.91 mm[Hg], 2.48 mm[Hg] Right Atrium Right Atrium Systolic Pressure: 27.92 ml, 27.92 ml Dictated by: Radha Guardado M.D. on 08/09/2023 at 09:10 Approved by: Radha Guardado M.D. on 08/09/2023 at 09:16
== END 2023-08-02 10:15 | disposition home or self-care (01) ==
LOC: CARD 10:14
PROVIDERS: PCP Internal Medicine; Visit Provider Nurse Practitioner
DX: I48.0 Paroxysmal atrial fibrillation (principal)
CPT/HCPCS: 93306

== ENCOUNTER 2024-07-20 12:49 | Outpatient (OUT) | payer MEDICARE, OTHER, SELFPAY ==
--- NOTE | 2024-07-20 12:59 | XR_ITS ---
The [address] [address] Patient Name: TESSIE EL MRN: [id number] date: 1940 Sex: F Assigned Patient Location: [facility] Current Patient Location: 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 Electronic cardiac device is in stable position. The lungs are clear. No evidence of consolidating infiltrates to suggest pneumonia. There is no evidence of pleural effusion or pneumothorax. XR/XR chest 2V IMPRESSION: Chest radiograph is essentially within normal limits and stable. Electronically authenticated by: SONIYA WINSLOW Date: 07/21/2024 07:42
--- NOTE | 2024-07-20 12:59 | XR_ITS ---
[address] [address] Patient Name: TESSIE EL MRN: [id number] date: 1940 Sex: F Assigned Patient Location: [facility] Current Patient Location: Accession/Order Number: [id number] Exam Date: 07/20/2024 13:12 Report Date: 07/21/2024 05:30 At the request of: EUFEMIA CALVO Procedure: XR DEXA axial skeleton EXAMINATION: XR DEXA axial skeleton HISTORY: Osteoporosis COMPARISON: DEXA bone densitometry 05/31/2022 TECHNIQUE: Dual-energy X-ray absorptiometry (DXA) was performed. FINDINGS: SPINE ANALYSIS: Average bone mineral density is 0.995 g/cm2. T-score (standard deviation relative to young adult mean): -1.5 . +0.2% change since prior study. HIP ANALYSIS: Lowest bone mineral density is within the left femoral neck, 0.79 g/cm2. T-score (standard deviation relative to young adult mean): -1.8 . -1.5% change since prior study. XR/XR DEXA axial skeleton IMPRESSION: World Health Organization Classification: Osteopenia - Moderate Fracture Risk FRAX: Cannot be calculated. Pharmacologic treatment recommendations * No uniform recommendation applies to all patients. Management plans must be individualized. * Consider initiating pharmacologic treatment in postmenopausal women and men >= 50 years of age who have the following: Primary fracture prevention: * T-score <= - 2.5 at the femoral neck, total hip, lumbar spine, 33% radius (some uncertainty with existing data) by DXA. * Low bone mass (osteopenia: T-score between - 1.0 and - 2.5) at the femoral neck or total hip by DXA with a 10-year hip fracture risk >= 3% or a 10-year major osteoporosis-related fracture risk >= 20% (i.e., clinical vertebral, hip, forearm, or proximal humerus) based on the [place]-adapted FRAXregistered model. Secondary fracture prevention: * Fracture of the hip or vertebra regardless of BMD [4, 5]. * Fracture of proximal humerus, pelvis, or distal forearm in persons with low bone mass (osteopenia: T-score between - 1.0 and - 2.5). The decision to treat should be individualized in persons with a fracture of the proximal humerus, pelvis, or distal forearm who do not have osteopenia or low BMD [12, 13]. Saul MS, Miguel SL, Fabio KL, Vineet EM, Juan KG, AJ, Gerda ES. The clinician's guide to prevention and treatment of osteoporosis. Osteoporos Int. 2021;33(10):6167-9539. doi: 10.1007/g85672-962-31698-u. Epub 2021Nov 26. Erratum in: Osteoporos Int. 2021Feb 25;: PMID: [id number]; PMCID: [id number]. Electronically authenticated by: SHELLIE PATEL Date: 07/21/2024 05:30
[2024-07-20 13:04] LABS: Basophils Absolute Auto 0.1 10^3/uL (0.0-0.1); Basophils Percent Auto 0.7 % (0.2-2.0); Eosinophils Absolute Auto 0.2 10^3/uL (0.0-0.7); Eosinophils Percent Auto 2.1 % (0.9-7.0); Hematocrit 43.6 % (36.0-48.0); Hemoglobin 13.7 g/dL (12.0-16.0); Immature Granulocytes Abs Auto 0.01 10^3/uL (0.00-0.03); Immature Granulocytes Pct Auto 0.1 % (0.0-0.5); Lymphocytes Absolute Auto 2.5 10^3/uL (1.2-3.8); Lymphocytes Percent Auto 32.8 % (20.5-60.0); Mean Corpuscular HGB Conc 31.4 g/dL (29.9-35.2); Mean Corpuscular Hemoglobin 29.1 pg (26.7-34.0); Mean Corpuscular Volume 92.6 fL (81.0-99.0); Mean Platelet Volume 9.7 fL (9.5-13.5); Monocytes Absolute Auto 0.6 10^3/uL (0.3-0.8); Monocytes Percent Auto 7.5 % (1.7-12.0); Neutrophils Absolute Auto 4.2 10^3/uL (1.4-6.5); Neutrophils Percent Auto 56.8 % (43.0-75.0); Platelet Count 240 10^3/uL (150-450); Red Blood Count 4.71 10^6/uL (4.20-5.40); Red Cell Distribution Width 13.3 % (11.0-15.0); White Blood Count 7.5 10^3/uL (4.0-11.0)
--- OUTSIDE RECORDS SUMMARY | 2024-07-20 13:05 | XMS_ITS | CCD ---
Author Organization [facility] Care Team Providers Care Port Engineer Name Role Phone JUAN JOSÉ ARCE Referring Unavailable CLAUDE, JUAN JOSÉ Primary Care Unavailable EARL BAUTISTA Attending Unavailable EARL BAUTISTA Admitting Unavailable CLAUDE, JUAN JOSÉ Primary Care Physician [phone] Claude, Juan José Unavailable CLAUDE, DR FALL [...] DR HERNÁNDEZ Attending Unavailable HAY ., DR HERNÁNEDZ Consulting Unavailable ITKIN, ANTONIO Consulting Unavailable JUAN URRUTIA Referring Unavailable SHAILESH COATES Attending Unavailable JUAN URRUTIA Referring Unavailable SAVANAH RASCON Attending Unavailable Yandy Ragsdale Attending Unavailable Yandy Ragsdale Admitting Unavailable Yandy Ragsdale Attending Unavailable Allergies Allergy Classification Reported Allergen(s) Allergy Type Date of Onset Reaction(s) Facility (1 source) Povidone-Iodine Drug Allergy 05-23-20 12 [facility] Repository (6 sources) Sulfonamides (Antibiotic); Translations: [SULFA (SULFONAMIDE ANTIBIOTICS)] Drug allergy (disorder) 12-25-19 13 Unknown Reaction [facility] Repository (17 sources) Iodine; Translations: [iodine] Drug Allergy 07-18-20 23 Blister (morphologic abnormality) [facility] (4 sources) Sulfonamides (Antibiotic); Translations: [sulfa drugs] Drug allergy Irch [facility] Ellen (10 sources) Albuterol / Ipratropium Drug Allergy Unknown [facility] Other (12 sources) montelukast Drug Allergy 12-13-19 24 Unknown, Unknown Reaction [facility] (10 sources) Sulfamethoxazole / Trimethoprim Drug Allergy Unknown [facility] Other (10 sources) Substance with sulfonamide structure and antibacterial mechanism of action (substance) Drug allergy Unknown [facility] Other (2 sources) Iodine Drug Allergy 01-13-20 13 [facility] Repository (1 source) Povidone-Iodine; Translations: [POVIDONE-IODINE] Drug Allergy 07-19-20 14 [facility] Repository (2 sources) Albuterol Drug Allergy 12-13-19 24 Unknown Reaction [facility] (2 sources) Ipratropium Drug Allergy 12-13-19 24 Unknown Reaction [facility] (2 sources) Sulfamethoxazole Drug Allergy 12-13-19 24 Unknown Reaction [facility] (2 sources) Trimethoprim Drug Allergy 12-13-19 24 Unknown Reaction [facility] Medications Current Medications Medication Drug Class(es) Dates Sig (Normalized) Sig (Original) 120 actuat albuterol 0.1 mg/actuat / ipratropium bromide 0.02 mg/actuat inhalation spray (12 sources) Anticholinergic, beta2-Adrenergic Agonist Start: 09-19-2023 take 20-100 ug by inhalation four times daily Ipratropium-Albut isma (Combivent Respimat) 20-100 mcg/actuation mist Active 1 PUFF INHALATION Four times daily September 19, 2023 12:00am space evenly during waking hours take 20-100 ug by in halation every six hours as needed Combivent Respimat 20-100 MCG/ACT 1 puff as needed Inhalation every 6 hrs Active aspirin 81 mg delayed release oral tablet (15 sources) Platelet Aggregation Inhibitor, Nonsteroidal Anti-inflammatory Drug Start: 12-13-2023 take 1 tablet by mouth once daily Aspirin 81 mg tablet,delayed release (DR/EC) Active 81 MG PO Daily December 12, 2023 11:00pm Start: 04-04-2019 aspirin 81 mg Start Date: 04/04/19 Status: Ordered take 1 tablet by chana th every twenty-four hours Aspirin 81 81 MG 1 tablet Orally Once a day Active take 1 tablet by mouth once johnson y Aspirin 81 81 MG 1 tablet Orally Once a day Active atorvastatin 40 mg oral tablet (15 sources) HMG-CoA Reductase Inhibitor Start: 12-13-2023 take 1 tablet by mouth once daily Atorvastatin 40 mg tablet Active 40 MG PO Daily December 12, 2023 11:00pm Start: 04-04-2019 take 40 mg by mouth once daily atorvastatin 40 mg, Oral, Daily Start Date: 04/04/19 Status: Ordered Calcium (10 sources) Phosphate Binder, Calcium Calcium Active Combivent Respimat (3 sources) Start: Combivent Respimat Start Date: 04/04/19 Status: Ordered doxycycline hyclate 100 mg oral capsule (6 sources) Tetracycline-class Drug Start: take 1 capsule by mouth every twelve hours Doxycycline Hyclate 100 MG 1 capsule Orally Twice a day for 5 days May, Active hydroCHLOROthiazide 12.5 mg / lisinopril 10 mg oral tablet (17 sources) Thiazide Diuretic, Angiotensin Converting Enzyme Inhibitor Start: End: take 1 tablet by mouth once daily Lisinopril-Hydroch lorothiazide 10-12.5 mg tablet Active 1 TAB PO Daily 90 90 January 23, 2024 12:22pm Start: 11-23-2021 take 1 tablet by chana th once daily hydrochlorothiazide-lisinopril 12.5 mg-1 0 mg Tab 1 tab(s), Oral, Daily Start Date: 11/23/21 Status: Ordered loratadine 10 mg oral tablet (12 sources) Start: 12-13-2023 take 1 tablet by mouth once daily Loratadine (Claritin) 10 mg tablet Active 10 MG PO Daily December 12, 2023 11:00pm take 1 tablet by chana th every twenty-four hours Claritin 10 MG 1 tablet Orally Once a day Active montelukast 10 mg oral tablet (16 sources) Leukotriene Receptor Antagonist Start: 12-13-2023 End: 06-12-2024 take 1 tablet by mouth once daily at bedtime Montelukast 10 mg tablet Active 10 MG PO Daily at bedtime 90 90 June 12, 2024 1:19pm Start: 04-04-2019 take 10 mg by mouth once daily Singulair 10 mg, Oral, Daily Start Date: 04/04/19 Status: Ordered Multivitamin preparation (11 sources) Start: 12-13-2023 take 1 tablet by mouth once daily Multivitamin Active 1 TAB PO Daily December 13, 2023 12:00am Multivitamin Act pilar Multivitamin tablet (1 source) Start: 12-13-2023 take 1 tablet by mouth once daily Multivitamin tablet Active 1 TAB PO Daily December 12, 2023 11:00pm nitrofurantoin, macrocrystals 25 mg / nitrofurantoin, monohydrate 75 mg oral capsule (1 source) Nitrofuran Antibacterial Start: 09-02-2023 take 1 capsule by mouth every twelve hours Macrobid 100 MG 1 capsule with food Orally every 12 hrs for 5 days Sep, Active sotalol hydrochloride 120 mg oral tablet (15 sources) Antiarrhythmic Start: 12-13-2023 take 1 tablet by mouth once daily Sotalol 120 mg tablet Active 120 MG PO Daily December 12, 2023 11:00pm Start: 04-04-2019 sotalol 80 mg Tab Start Date: 04/04/19 Status: Ordered take 1 tablet by chana th every twenty-four hours Sotalol HCl (AF) 120 MG 1 tablet Orally daily for 90 days Active take 1 tablet by chana th every twelve hours Sotalol HCl (AF) 120 MG 1 tablet Orally every 12 hrs Active Completed/Discontinued Medications Medication Drug Class(es) Dates Sig (Normalized) Sig (Original) cephalexin 500 mg oral capsule (2 sources) Cephalosporin Antibacterial Start: 03-30-2024 End: 06-15-2024 take 1 capsule by mouth three times daily Cephalexin 500 mg capsule Discontinued 500 MG PO Three times daily 15 March 29, 2024 11:00pm June 15, 2024 1:52pm Start: 11-09-2021 take 1 capsule by mo ut every twelve hours Keflex 500 mg Cap 500 mg = 1 cap(s), Oral, q12hr, Take 1 pill the day before the procedure and 1 pill after the procedure., # 2 cap(s), Refills(s) 0, [id number], 158, cm, 01/05/21 13:27:00 EDT, Height/Length Dosing, 62.1, kg, 01/05/21 13:27:0... Start Date: 11/09/21 Status: Ordered Problems Active Problems Problem Classification Problem Date Documented Da te Episodic/Chronic Acute bronchitis (1 source) Acute bronchitis due to other specified organisms Episodic Asthma (20 sources) Asthma; Translations: [Uncomplicated mild persistent asthma] 04-04-2019 Chronic Calculus of urinary tract (3 sources) Kidney stone 04-04-2019 Episodic Cancer of bladder (15 sources) Malignant tumor of urinary bladder; Translations: [Malignant neoplasm, overlapping lesion of bladder] 04-04-2019 Chronic Cancer of bladder (3 sources) History of malignant neoplasm of bladder; Translations: [Personal history of malignant neoplasm of bladder] Onset: 11-23-2021 Episodic Cancer of other urinary organs (3 sources) Malignant tumor of ureter 04-04-2019 Chronic Cancer of other urinary organs (1 source) History of malignant neoplasm of urinary system; Translations: [Personal history of malignant neoplasm of unspecified urinary tract organ] Onset: 08-11-2023 Episodic Cancer of uterus (3 sources) Malignant neoplasm of uterus 04-04-2019 Chronic Cancer; other and unspecified primary (2 sources) H/O: carcinoma 01-19-2023 Episodic Cancer; other and unspecified primary (2 sources) H/O: malignant neoplasm 01-19-2023 Episodic Cardiac dysrhythmias (20 sources) Paroxysmal atrial fibrillation; Translations: [Paroxysmal atrial fibrillation] Onset: 11-30-2022 Chronic Chronic kidney disease (12 sources) Chronic kidney disease stage 3A ; Translations: [Stage 3a chronic kidney disease] 12-11-2023 Chronic Chronic kidney disease (6 sources) Chronic kidney disease; Translations: [CHRONIC KIDNEY DISEASE STAGE 3A] Onset: 11-30-2022 Chronic obstructive pulmonary disease and bronchiectasis (13 sources) Chronic obstructive lung disease; Translations: [Simple chronic bronchitis] 04-04-2019 Chronic Conditions associated with dizziness or vertigo (2 sources) Dizziness and giddiness; Translations: [Dizziness and giddiness] Onset: 03-19-2024 Episodic Conduction disorders (16 sources) Cardiac pacemaker in situ; Translations: [Presence of cardiac pacemaker] Onset: 11-30-2022 Chronic Congestive heart failure; nonhypertensive (3 sources) Congestive heart failure 04-04-2019 Chronic Disorders of lipid metabolism (20 sources) Hyperlipidemia; Translations: [Hypercholesterolemi a] Onset: 11-30-2022 04-04-2019 Chronic Endometriosis (3 sources) Endometriosis (clinical) 04-04-2019 Chronic Essential hypertension (20 sources) Hypertensive disorder; Translations: [Essential hypertension] Onset: 11-30-2022 04-04-2019 Chronic Genitourinary symptoms and ill-defined conditions (7 sources) Blood in urine; Translations: [Urinary symptoms ] 04-04-2019 Episodic Occlusion or stenosis of precerebral arteries (12 sources) Bilateral stenosis of carotid arteries; Translations: [Occlusion and stenosis of bilateral carotid arteries] Chronic Osteoporosis (11 sources) Age-related osteoporosis without current pathological fracture; Translations: [Senile osteoporosis] Onset: 05-31-2022 Chronic Other aftercare (2 sources) Other fci (current) drug therapy; Translations: [OTH CONTINUOUS MINER OPERATOR CURRENT DRUG THERAPY] Onset: 12-09-2022 Episodic Other aftercare (2 sources) Follow-up status; Translations: [Encounter for follow-up examination after completed treatment for malignant neoplasm] Onset: 01-19-2023 Episodic Other and unspecified benign neoplasm (3 sources) Benign neoplasm of colon; Translations: [Colon polyps] Episodic Other circulatory disease (2 sources) Other specified symptoms and signs involving the circulatory and respiratory systems; Translations: [OTH SPEC SX SIGNS INVLV CIRC RS] Onset: 06-03-2022 Episodic Other circulatory disease (2 sources) Carotid bruit; Translations: [Other specified symptoms and signs involving the circulatory and respiratory systems] 12-11-2023 Episodic Other diseases of bladder and urethra (1 source) Disorder of bladder; Translations: [Bladder disorder, unspecified] Onset: 08-11-2023 Chronic Other diseases of bladder and urethra (1 source) Lesion of bladder 08-11-2023 Chronic Other lower respiratory disease (1 source) Cough; Translations: [Cough] 06-15-2024 Episodic Residual codes; unclassified (1 source) Procedure and treatment not carried out because of patient's decision for unspecified reasons Episodic Unclassified (2 sources) COUGH, UNSPECIFIED; Translations: [COUGH, UNSPECIFIED] Onset: 08-03-2022 Urinary tract infections (3 sources) 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 Comment on above: Urethral Stricture Past or Other Problems Problem Classification Problem Date Documented Da te Episodic/Chronic Other aftercare (1 source) skilled nursing (current) use of aspirin; Translations: [PRISON CURRENT USE OF ASPIRIN] Onset: 08-03-2022 Episodic Other bone disease and musculoskeletal deformities (1 source) Other specified disorders of bone density and structure, unspecified site; Translations: [OTH D/O BONE DEN STRUCT UNS SITE] Onset: 06-03-2022 Episodic Other upper respiratory infections (1 source) Acute upper respiratory infection, unspecified; Translations: [ACUTE UP RESPIRATORY INFECTION UNS] Onset: 08-03-2022 Episodic Unclassified (1 source) COUGH, UNSPECIFIED; Translations: [COUGH, UNSPECIFIED] Onset: 07-31-2022 Unclassified (1 source) Suspected COVID-19 virus infection Z20.822 Results Test Name Value Interpretation Reference Range Facility Reminderson 06-26-2024 Reminders Reminders From: Steff Bateman To: KRYSTAL - Luisa Ragsdale; Sent: 08/11/2023 14:18:53 EST Show up: 06/11/2024 14:18:00 EST Subject: Schedule Cysto/Cytol Due Date/Time: 08/11/2024 14:18:00 EST Pt is to be scheduled for a cysto/cytology. 08/2024 Called patient to schedule the procedure. Patient states she might be going to [place], will know for sure at the beginning of the August 2024. As I was speaking with the patient, she stated she wants to cancel procedure. Patient state she no longer wants to do the procedures as she is not having issues at this time. I did mail the patient a refusal form to have her sign and then send back to our office. Will monitor for the refusal form, but wanted you to be aware of the information above as well. From: Fabiana Mcwilliams (KRYSTAL - Luisa Ragsdale) To: Yandy Ragsdale MD; Sent: 06/19/2024 11:32:43 EST ! Show up: 06/19/2024 11:32:00 EST From: Jn MCCRARY, Yandy Martínez To: Steff Bateman; Fabiana Mcwilliams; Sent: 06/25/2024 15:29:29 EST Show up: 06/25/2024 15:29:00 EST Subject: RE: Schedule Cysto/Cytol Thanks, yes needs refusal form. Repeat cysto recommended due to history of cancer and abnormal cysto last year Thanks, KML From: Fabiana Mcwilliams To: KRYSTAL Ragsdale; Sent: 06/26/2024 10:18:24 EST ! Show up: 06/26/2024 10:18:00 EST Normal [facility] - Chemistry and C hemistry - challengeon 03-30-2024 Bilirubin Ql (U) Negative [facility] Glucose (U) [Mass/Vol] Negative [facility] Ketones Ql (U) Negative [facility] pH (U) 5 [pH] [facility] Specific gravity (U) [Rel density] 1.010 [facility] Urobilinogen (U) [Mass/Vol] 0.2 mg/dL [facility] - Specimen inform ationon 03-30-2024 Appearance (U) cloudy [facility] Color (U) darkyellow [facility] - Urinalysison Leukocyte esterase Test strip Ql (U) ++ [facility] Nitrite Ql (U) Negative [facility] Protein Ql (U) ++ [facility] No Panel Informationon 03-30 Urine Occult Blood +++ [facility] 29on 03-19-2024 29 Addended by: SAVANAH RASCON on: 03/19/2024 02:47 PM Modules accepted: Orders [facility] Office Visiton 03-19-2024 Follow-up visit [id number] Rebecca Hays 1940 F Date Provider Department Center 03/19/2024 [id number] RASCON [facility] Family History Problem Relation Age of Onset No Known Problems Mother No Known Problems Father Family Status - Relation Status Age at Mother Father Level of Service:19652 [place] OFFICE/OUTPATIENT ESTABLISHED MOD MDM 30 MIN Reason for Visit and Comments: Atrial Fibrillation [80] Follow-up [[id number]] - Atrial fibrillation [facility] Urinalysis - DIPSTICKon 02- Appearance (U) cloudy [employer] Other Bilirubin Ql (U) Negative [facility] Other Color (U) yellow [employer] Other Glucose Ql (U) Negative [employer] Other Hemoglobin Ql (U) ++ [employer] Other Ketones Ql (U) Negative [employer] Other Leukocyte esterase Test strip Ql (U) 125++ [employer] Other Nitrite Ql (U) Negative [employer] Other pH (U) 7.5 [pH] [employer] Other Protein Ql (U) 15 [employer] Other Specific gravity (U) [Rel density] 1.005 [employer] Other Urobilinogen (U) [Mass/Vol] 0.2 mg/dL [facility] Other Urinalysis - DIPSTICK [facility] Other Urine Cytology ([facility])on 0 08-19-2023 Urine Cytology Diagnosis Info Invalid Interpretation Code [facility] Comment on above: Result Comment: A:Ur ine,Urine:Bladder Wash Interpretation - MicroScopic Description - Adequacy - Gross Description Site ID:A color Very Light Yellow fixative Alcohol Specimen designated Urine received in alcohol preservative and labeled with the patient?s name, consists of 90ml clear very light yellow fluid. Electronically signed by : on: 08/19/2023 13:36:34 Performed By: #### 1 [id number] #### [facility] [address] [place] [address] Consent for Procedure/Surger yon 08-12-2023 Consent for Procedure/Surgery [id number]. 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 Personal history of malignant neoplasm of unspecified urinary tract organ Your Care Team Attending Physician - Jn MCCRARY, Yandy Martínez Primary Care Physician - CLAUDE BANGURA, JUAN JOSÉ This Is Your Medications List Contact prescribing physician if questions or concerns albuterol-ipratropium (Combivent Respimat) aspirin atorvastatin hydrochlorothiazide-li sinopril (hydrochlorothiazide-l isinopril 12.5 mg-10 mg Tab) montelukast (Singulair) sotalol (sotalol 80 mg Tab) Procedures Performed Cystoscopy (08/11/2023), Cystoscopy (11/23/2021), Cystoscopy (01/05/2021), Cysto/Lt stent removal (01/02/2016), Cysto, Lt RG, TURBT, Lt stent (12/17/2015), TURBT - Transurethral resection of bladder tumor (05/21/2015), Nephroureterectomy (06/24/2014), Cysto, Rt RG, Ureteroscopy, Bladder bx, Rt Stent (03/20/2014), Cysto, Random Bladder BX & Fulguration (05/02/2013), Cysto/TURBT, [place] Bladder bx & fulguration (02/14/2013), TURBT - Transurethral resection of bladder tumor (01/17/2013), Appendectomy, Bilateral tubal ligation, Cardiac pacemaker, Cystoscopy, HX Of BCG'S, Hysterectomy. Discharge Vitals Heart Rate (Peripheral) 106 Blood Pressure 100/55 Height 158 cm Height 62 in Weight 54 kg Weight 118.8 lb BMI 21.63 What to do next You Need to Schedule the Following Appointments Follow Up with Jn MCCRARY, MACY Glass, URO When: In 1 year Comments: w/Cysto/Cytology Where: Medications What How Much When Instructions Unchanged albuterol-ipratropium (Combivent Respimat) Contact prescribing physician if questions or concerns Unchanged aspirin 81 Milligram Contact prescribing physician if questions or concerns Unchanged atorvastatin 40 Milligram By Mouth Every day Contact prescribing physician if questions or concerns Unchanged hydrochlorothiazide-li sinopril (hydrochlorothiazide-l isinopril 12.5 mg-10 mg Tab) 1 Tablets By Mouth Every day Contact prescribing physician if questions or concerns Unchanged montelukast (Singulair) 10 Milligram By Mouth Every day Contact prescribing physician if questions or concerns Unchanged sotalol (sotalol 80 mg Tab) Contact prescribing physician if questions or concerns Allergies iodine (Blisters) sulfa drugs (Irch) Problems Ongoing - Any problem that you are currently receiving treatment for. 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 Please share your experience with us by completing your survey. We appreciate your feedback and thank you for choosing us for your care. Normal [facility] Urine Cytology ([facility])on 08-11-2023 Method of Extraction Bladder Wash Normal [facility] Comment on above: Performed By: #### 1 [id number] #### [facility] [address] [place] [address] Number of Jars 1 Invalid Interpretation Code [facility] Comment on above: Performed By: #### 1 [id number] #### [facility] [address] [place] [address] Specimen Urine Normal [facility] Comment on above: Performed By: #### 1 [id number] #### [facility] [address] [place] [address] Type of Service Technical Only Normal [facility] Comment on above: Performed By: #### 1 [id number] #### [facility] [address] [place] [address] Urology Office/Clinic Noteon 08-11-2023 Urology Office/Clinic Note Chief Complaint Cysto HPI Staff Cysto History of Present Illness Tests reviewed: CTU I have reviewed the previous health record information and history for this patient from . I have reviewed and verified the staff HPI to be accurate for this encounter. There have been no associated fever, chills, flank pain, or blood in the urine. Denies any urinary infections since last encounter. Review of Systems PHQ Score Initial Depression Screen Score: 0 SCORE ROS - Provider Constitutional: denies weight loss, [...] HPI. Physical Exam Vitals & Measurements HR: 106(Peripheral) BP: 100/55 HT: 62 in HT: 158 cm WT: 54 kg WT: 118.8 lb BMI: 21.63 General Appearance: alert , no acute distress, well nourished, well developed female. Genitourinary: bladder nonpalpable, no flank pain. Procedure Operative Information Anesthesia Type: Local Procedure: Local Cystoscopy Complications: None Surgical risks, benefits, details of the procedure have been explained to the patient. Full informed consent has been obtained. Intraoperative Information Prepped: Patient is brought back to the endoscopy suite. Patient is placed in supine/frog leg position. Patient prepped in the usual fashion with Betadine solution. 2% Xylocaine Jelly is placed per Urethra. After waiting several minutes, the Cystoscope is introduced. The Urethra is: Normal The Bladder: less than 1cm irregular patch on the posterior wall, erythematous, slight papillary appearance, surgically absent Rt UO, well healed scar. Trabeculated: 1-2 The Ureteral orifices: Show efflux of clear urine Specimens Removed: Bladder wash sent for Cytology test Removal: Cystoscope is removed. The patient tolerated it well. Postoperative Information Patient is discharged home. Follow up arranged. 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 83 yo F with history of bladder cancer and right [facility]UC s/p right nephroureterectomy here for surveillance cystoscopy. Pt's parents passed in their 90s. hx [...] was sent for Cytology at that time. CT AP w/wo Con 05/31/23 - no significant abnormality or interval change Pt had IO cysto to check for bladder tumor recurrence without complications today -small suspicious area however not clear tumor. Will send bladder wash specimen for cytology and call pt if positive. Follow up in 1 yr w/Cysto/Cytology or sooner if needed if urine cytology is positive. Pt understands and agrees with plan. Ordered: [id number] Cystourethroscopy Urine Cytology ([facility]) 2. 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 Patient declines further upper tract surveillance at this time. Ordered: [id number] Cystourethroscopy 3. Lesion of bladder (N32.9: Bladder disorder, unspecified) Small erythematous patch on posterior bladder wall. -Follow up in 1 year (pt desires very conservative mgmt). 6 mths if cytology suspicious Follow-up With When Contact Information Yandy Ragsdale MD, URL, URO In 1 year Additional Instructions: w/Cysto/Cytology Patient Education I, Steff Bateman, personally scribed for Dr. Ragsdale on 08/11/2023 14:17:25. . Portions of this record may have been created with voice recognition artificial intelligence software, specifically [employer], [employer] and or [employer]. Substitutions may have occurred due to the inherent limitations of voice recognition and artificial intelligence software. Documentation recorded by the Steff ortiz, [facility] (more content not included)... Normal [facility] Comment on above: Result Comment: Elec tronically Signed By: Yandy Ragsdale MD\.br\Date and Time Signed: 08/11/23 16:26 EST\.br\Electronically Co-Signed By: Steff Bateman\.br\Date and Time Co-Signed: 08/11/23 14:17 EST Office Visiton 07-18-2023 Follow-up visit [id number] Rebecca Hays 1940 F Date Provider Department Center 07/18/2023 Kacy-SHAILESH COATES [facility] Family History Problem Relation Age of Onset No Known Problems Mother No Known Problems Father Family Status - Relation Status Age at Mother Father Level of Service:[address]702 [place] OFFICE/OUTPATIENT ESTABLISHED MOD MDM 30 MIN Normal [facility] CBC AUTO DIFFon 12-03-2022 BASO # 0.1 103/ul Normal 0.0-0.1 [facility] Comment on above: Performed By: #### C BC #### [facility] [address] [address] [address] Radha Pacheco Basophils/100 WBC (Bld) 1.0 % Normal 0.2-2.0 [facility] Comment on above: Performed By: #### C BC #### [facility] [address] [place] [address] Dr. Radha Pacheco EO # 0.2 103/ul Normal 0.0-0.7 [facility] Comment on above: Performed By: #### C BC #### [facility] [address] [place] [address] Dr. Radha Pacheco Eosinophils/100 WBC (Bld) 2.7 % Normal 0.9-7.0 [facility] Comment on above: Performed By: #### C BC #### [facility] [address] [place] [address] Dr. Radha Pacheco Erythrocyte distribution width (RBC) [Ratio] 13.2 % Normal 11.0-15.0 [facility] Comment on above: Performed By: #### C BC #### [facility] [address] [place] [address] Dr. Radha Pacheco Hematocrit (Bld) [Volume fraction] 43.7 % Normal 36.0-48.0 [facility] Comment on above: Performed By: #### C BC #### [facility] [address] [place] [address] Dr. Radha Pacheco Hemoglobin (Bld) [Mass/Vol] 13.8 g/dL Normal 12.0-16.0 [facility] Comment on above: Performed By: #### C BC #### [facility] [address] [place] [address] Dr. Radha Pacheco IG # 0.01 10e3/ul Normal 0.00-0.03 [facility] Comment on above: Performed By: #### C BC #### [facility] [address] [place] [address] Dr. Radha Pacheco IG % 0.1 % Normal 0.0-0.5 [facility] Comment on above: Performed By: #### C BC #### [facility] [address] [place] [address] Dr. Radha Pacheco LYMPH # 2.6 103/ul Normal 1.2-3.8 [facility] Comment on above: Performed By: #### C BC #### [facility] [address] [place] [address] Dr. Radha Pacheco Lymphocytes/100 WBC (Bld) 37.3 % Normal 20.5-60.0 [facility] Comment on above: Performed By: #### C BC #### [facility] [address] [place] [address] Dr. Radha Pacheco MANUAL DIFF REQ NO Normal [facility] Comment on above: Performed By: #### C BC #### [facility] [address] [place] [address] Dr. Radha Pacheco MCH (RBC) [Entitic mass] 28.5 pg Normal 26.7-34.0 [facility] Comment on above: Performed By: #### C BC #### [facility] [address] [place] [address] Dr. Radha Pacheco MCHC (RBC) [Mass/Vol] 31.6 g/dL Normal 29.9-35.2 [facility] Comment on above: Performed By: #### C BC #### [facility] [address] [place] [address] Dr. Radha Pacheco MCV (RBC) [Entitic vol] 90.3 fL Normal 81.0-99.0 [facility] Comment on above: Performed By: #### C BC #### [facility] [address] [place] [address] Dr. Radha Pacheco MONO # 0.4 103/ul Normal 0.3-0.8 [facility] Comment on above: Performed By: #### C BC #### [facility] [address] [place] [address] Dr. Radha Pacheco Monocytes/100 WBC (Bld) 6.2 % Normal 1.7-12.0 [facility] Comment on above: Performed By: #### C BC #### [facility] [address] [place] [address] Dr. Radha Pacheco NEUT # 3.6 103/ul Normal 1.4-6.5 [facility] Comment on above: Performed By: #### C BC #### [facility] [address] [place] [address] Dr. Radha Pacheco Neutrophils/100 WBC (Bld) 52.7 % Normal 43.0-75.0 [facility] Comment on above: Performed By: #### C BC #### [facility] [address] [place] [address] Dr. Radha Pacheco Platelet mean volume (Bld) [Entitic vol] 9.7 fL Normal 9.5-13.5 [facility] Comment on above: Performed By: #### C BC #### [facility] [address] [place] [address] Dr. Radha Pacheco PLT 240 103/ul Normal 150-450 [facility] Comment on above: Performed By: #### C BC #### [facility] [address] [place] [address] Dr. Radha Pacheco RBC 4.84 106/ul Normal 4.20-5.40 [facility] Comment on above: Performed By: #### C BC #### [facility] [address] [place] [address] Dr. Radha Pacheco WBC 6.9 103/ul Normal 4.0-11.0 [facility] Comment on above: Performed By: #### C BC #### [facility] [address] [place] [address] Dr. Radha Pacheco LIPID PROFILEon 12-03-2022 CHOL-HDL RATIO NORM SEE BELOW Normal [facility] Comment on above: Result Comment: 3.3 - 4.4 LOW RISK 4.4 - 7.1 AVERAGE RISK 7.1 - 11.0 MODERATE RISK >11.0 HIGH RISK Performed By: #### B MP, LIPID, ALT #### [facility] [address] [place] [address] Dr. Radha Pacheco Cholesterol [Mass/Vol] 145 mg/dL Normal <=200 [facility] Comment on above: Performed By: #### B MP, LIPID, ALT #### [facility] [address] [place] [address] Dr. Radha Pacheco Cholesterol in HDL [Mass/Vol] 71 mg/dL Critically high 40-60 [facility] Comment on above: Performed By: #### B MP, LIPID, ALT #### [facility] [address] [address] [address] Radha Pacheco Cholesterol in LDL [Mass/Vol] 56.8 mg/dL Normal [facility] Comment on above: Performed By: #### B MP, LIPID, ALT #### [facility] [address] [address] [address] Radha Pacheco Cholesterol.total /Cholesterol in HDL [Mass ratio] 2.0 {ratio} Normal [facility] Comment on above: Performed By: #### B MP, LIPID, ALT #### [facility] [address] [address] [address] Radha Pacheco HDL NORMAL > or = 60 mg/dl - LO W CARDIOVASCULAR RISK <40 mg/dl - HIGH CARDIOVASCULAR RISK Normal [facility] Comment on above: Performed By: #### B MP, LIPID, ALT #### [facility] [address] [place] [address] Dr. Radha Pacheco LDL CALC NORMAL SEE BELOW Normal [facility] Comment on above: Result Comment: <100 mg/dl OPTIMAL 100 - 129 mg/dl NEAR OR ABOVE OPTIMAL 130 - 159 mg/dl BORDERLINE HIGH 160 - 189 mg/dl HIGH >190 mg/dl VERY HIGH Performed By: #### B MP, LIPID, ALT #### [facility] [address] [address] [address] Radha Pacheco Triglyceride [Mass/Vol] 86 mg/dL Normal <=150 [facility] Comment on above: Performed By: #### B MP, LIPID, ALT #### [facility] [address] [address] [address] Radha Pacheco VLDL CALC 17.2 mg/dL Normal [facility] Comment on above: Performed By: #### B MP, LIPID, ALT #### [facility] [address] [address] [address] Radha Pacheco PROF CHEM 8 (BAS METB)on Anion gap [Moles/Vol] 9.1 mmol/L Normal [facility] Comment on above: Performed By: #### B MP, LIPID, ALT #### [facility] [address] [place] [address] Dr. Radha Pacheco Calcium [Mass/Vol] 10.0 mg/dL Normal 8.5-10.1 [facility] Comment on above: Performed By: #### B MP, LIPID, ALT #### [facility] [address] [address] [address] Radha Pacheco Chloride [Moles/Vol] 103 mmol/L Normal 98-107 [facility] Comment on above: Performed By: #### B MP, LIPID, ALT #### [facility] [address] [address] [address] Radha Pacheco CO2 [Moles/Vol] 32.2 mmol/L Critically high 21.0-32.0 [facility] Comment on above: Performed By: #### B MP, LIPID, ALT #### [facility] [address] [address] [address] Radha Pacheco Creatinine [Mass/Vol] 0.97 mg/dL Normal 0.55-1.02 [facility] Comment on above: Performed By: #### B MP, LIPID, ALT #### [facility] [address] [address] [address] Radha Pacheco EGFR-AF GERMAN >60 Normal >=60 [facility] Comment on above: Performed By: #### B MP, LIPID, ALT #### [facility] [address] [address] [address] Radha Pacheco EGFR-NON AF GERMAN 55 mL/min/1.73m2 Critically low >=60 [facility] Comment on above: Performed By: #### B MP, LIPID, ALT #### [facility] [address] [address] [address] Radha Pacheco Glucose [Mass/Vol] 108 mg/dL Critically high 74-106 [facility] Comment on above: Performed By: #### B MP, LIPID, ALT #### [facility] [address] [address] [address] Radha Pacheco Potassium [Moles/Vol] 4.3 mmol/L Normal 3.5-5.1 [facility] Comment on above: Performed By: #### B MP, LIPID, ALT #### [facility] [address] [address] [address] Radha Pacheco Sodium [Moles/Vol] 140 mmol/L Normal 136-145 [facility] Comment on above: Performed By: #### B MP, LIPID, ALT #### [facility] [address] [address] [address] Radha Pacheco Urea nitrogen [Mass/Vol] 20.0 mg/dL Critically high 7.0-18.0 [facility] Comment on above: Performed By: #### B MP, LIPID, ALT #### [facility] [address] [address] [address] Radha Pacheco Urea nitrogen/Creatini ne [Mass ratio] 20.6 mg/mg Normal [facility] Comment on above: Performed By: #### B MP, LIPID, ALT #### [facility] [address] [place] [address] Dr. Radha Pacheco SGPTon 12-03-2022 ALT [Catalytic activity/Vol] 25 U/L Normal 14-59 [facility] Comment on above: Performed By: #### B MP, LIPID, ALT #### [facility] [address] [address] [address] Radha Pacheco UA RANDOM W/MICROSCOPICon BACTERIA TRACE Abnormal NONE SEEN [facility] Comment on above: Performed By: #### U AMIC #### [facility] [address] [place] [address] Dr. Radha Pacheco Bilirubin Ql (U) Negative Normal NEGATIVE [facility] Comment on above: Performed By: #### U AMIC #### [facility] [address] [place] [address] Dr. Radha Pacheco CAST NONE SEEN Normal NONE SEEN [facility] Comment on above: Performed By: #### U AMIC #### [facility] [address] [place] [address] Dr. Radha Pacheco Clarity (U) CLEAR Normal CLEAR [facility] Comment on above: Performed By: #### U AMIC #### [facility] [address] [place] [address] Dr. Radha Pacheco Color (U) LT. YELLOW Normal YELLOW [facility] Comment on above: Performed By: #### U AMIC #### [facility] [address] [address] [address] Radha Pacheco Crystals LM Nom (Urine sed) NONE SEEN Normal NONE SEEN [facility] Comment on above: Performed By: #### U AMIC #### [facility] [address] [address] [address] Radha Pacheco Epithelial cells LM Ql (Urine sed) FEW Abnormal NONE SEEN /RARE [facility] Comment on above: Performed By: #### U AMIC #### [facility] [address] [address] [address] Radha Pacheco Glucose Ql (U) Negative Normal NEGATIVE [facility] Comment on above: Performed By: #### U AMIC #### [facility] [address] [place] [address] Dr. Radha Pacheco Hemoglobin Ql (U) Negative Normal NEGATIVE [facility] Comment on above: Performed By: #### U AMIC #### [facility] [address] [address] [address] Radha Pacheco Ketones Ql (U) Negative Normal NEGATIVE [facility] Comment on above: Performed By: #### U AMIC #### [facility] [address] [address] [address] Radha Pacheco LEUKOCYTES SMALL Abnormal NEGATIVE [facility] Comment on above: Performed By: #### U AMIC #### [facility] [address] [address] [address] Radha Pacheco MUCOUS NONE SEEN Normal NONE SEEN [facility] Comment on above: Performed By: #### U AMIC #### [facility] [address] [address] [address] Radha Pacheco Nitrite Ql (U) Negative Normal NEGATIVE [facility] Comment on above: Performed By: #### U AMIC #### [facility] [address] [address] [address] Radha Pacheco pH (U) 7.5 [pH] Normal 5-9 [facility] Comment on above: Performed By: #### U AMIC #### [facility] [address] [address] [address] Radha Pacheco RBC NONE SEEN Abnormal 0-2 [facility] Comment on above: Performed By: #### U AMIC #### [facility] [address] [address] [address] Radha Pacheco SPEC GRAVITY 1.015 Normal 1.005-<=1.025 [facility] Comment on above: Performed By: #### U AMIC #### [facility] [address] [address] [address] Radha Pacheco UA PROTEIN Negative Normal NEGATIVE/ TRACE [facility] Comment on above: Performed By: #### U AMIC #### [facility] [address] [address] [address] Radha Pacheco Urobilinogen Qn (U) 0.2 {Teodora'U}/dL Normal 0.2 - 1.0 [facility] Comment on above: Performed By: #### U AMIC #### [facility] [address] [address] [address] Radha Pacheco WBC 2-5 Abnormal NONE SEEN [facility] Comment on above: Performed By: #### U AMIC #### [facility] [address] [address] [address] Radha Pacheco XR CHEST 1 Von 07-31-2022 XR CHEST 1 V EXAM: XR CHEST 1 V HISTORY: COUGH COMPARISON: 11/20/2021 TECHNIQUE: Single view of the chest. FINDINGS: Left chest cardiac device and leads noted. Unremarkable cardiomediastinal silhouette. No focal consolidation, pleural effusion, pulmonary congestion or pneumothorax. IMPRESSION: No acute findings. Electronically authenticated by: ANTONIO CUADRA Date: 2022-07-31 10:49 Normal [facility] US CAROTID ART BILon 022 US CAROTID [...] by: SHELLIE PATEL Date: 2022-06-01 06:20 Normal [facility] XR DEXA BONE DENSITYon 05-31 XR DEXA [...] by: SHELLIE PATEL Date: 2022-05-31 15:14 Normal [facility] Vital Signs Date Time Vital Sign Value Performing Clinician Facility 06-15-2024 13:50-0500 Body mass index (BMI) [Ratio] 20.5 kg/m2 [facility] 06-15-2024 13:50-0500 Diastolic blood pressure 74 mm[Hg] [facility] 06-15-2024 13:50-0500 Heart rate 63 /min [facility] 06-15-2024 13:50-0500 Systolic blood pressure 121 mm[Hg] [facility] 06-14-2024 07:26-0500 Body height 157.48 cm [facility] 06-14-2024 07:26-0500 Body weight 50.8 kg [facility] 08-11-2023 13:31-0500 Blood Pressure Location Yandy Lue [facility] 08-11-2023 13:31-0500 Diastolic blood pressure 55 mm[Hg] Yandy Lue [facility] 08-11-2023 13:31-0500 Heart rate 106 /min Yandy Lue [facility] 08-11-2023 13:31-0500 Systolic blood pressure 100 mm[Hg] Yandy Lue [facility] 06-14-2023 14:00-0500 Body height 157.48 cm Juan José Ball Other [facility] [employer] Other 06-14-2023 14:00-0500 Body mass index (BMI) [Ratio] 21.32 kg/m2 Juan José Ball Other [facility] [employer] Other 06-14-2023 14:00-0500 Body weight 52.89 kg Juan José Ball Other [facility] [employer] Other 06-14-2023 14:00-0500 Diastolic blood pressure 85 mm[Hg] Juan José Ball Other [facility] [employer] Other 06-14-2023 14:00-0500 Respiratory rate 12 /min Juan José Ball Other [facility] [employer] Other 06-14-2023 14:00-0500 Systolic blood pressure 130 mm[Hg] Juan José Ball Other [employer] Other 03-18-2023 13:30-0400 Body height 157.48 cm Juan José Ball Other [employer] Other 03-18-2023 13:30-0400 Body mass index (BMI) [Ratio] 21.29 kg/m2 Juan José Ball Other [facility] Other 03-18-2023 13:30-0400 Body weight 52.8 kg Juan José Ball Other [facility] Other 03-18-2023 13:30-0400 Diastolic blood pressure 83 mm[Hg] Juan José Ball Other [facility] Other 03-18-2023 13:30-0400 Respiratory rate 12 /min Juan José Ball Other [facility] Other 03-18-2023 13:30-0400 Systolic blood pressure 147 mm[Hg] Juan José Ball Other [employer] Other 01-19-2023 11:15-0400 Heart rate 70 /min Yandy Ragsdale [facility] 11-16-2022 14:30-0400 Body height 157.48 cm Juan José Ball Other [employer] Other 11-16-2022 14:30-0400 Body mass index (BMI) [Ratio] 22.06 kg/m2 Juan José Ball Other [facility] Other 11-16-2022 14:30-0400 Body weight 54.7 kg Juan José Ball Other [facility] Other 11-16-2022 14:30-0400 Diastolic blood pressure 78 mm[Hg] Juan José Ball Other [facility] Other 11-16-2022 14:30-0400 Respiratory rate 12 /min Juan José Ball Other [facility] Other 11-16-2022 14:30-0400 Systolic blood pressure 138 mm[Hg] Juan José Arce Other [facility] [employer] Other 11-23-2021 13:34-0400 Blood Pressure Location Mj Mendenhall Jr. [facility] 11-23-2021 13:34-0400 Diastolic blood pressure 98 mm[Hg] Mj Mendenhall Jr. [facility] 11-23-2021 13:34-0400 Heart rate 67 /min Mj Mendenhall Jr. [facility] 11-23-2021 13:34-0400 Systolic blood pressure 150 mm[Hg] Mj Mendenhall Jr. [facility] Encounters Encounter Date Encounter Type Care Provider Facility Start: 06-15-2024 End: 06-15-2024 ambulatory [facility] Work Phone: Start: 06-15-2024 End: 06-15-2024 Patient encounter procedure [facility] Work Phone: Start: 06-07-2024 Non-patient / Non-visit [facility] Work Phone: Start: 03-30-2024 End: 03-30-2024 ambulatory [facility] Work Phone: Start: 03-30-2024 End: 03-30-2024 Patient encounter procedure [facility] Work Phone: Start: 03-19-2024 End: 03-19-2024 ambulatory [facility] Start: 02-14-2024 End: 02-14-2024 ambulatory [facility] Start: 09-02-2023 End: 09-02-2023 ambulatory Juan José Arce Other [employer] Other Start: 09-02-2023 Nursing evaluation o f patient and report Juan José Arce [facility] Start: 08-11-2023 End: 08-11-2023 ambulatory Yandy Ragsdale Facility[facility] Start: 08-11-2023 End: 08-11-2023 Patient encounter procedure Yandy Ragsdale [facility] Start: 07-18-2023 End: 07-18-2023 ambulatory [facility] Start: 07-05-2023 End: 07-05-2023 ambulatory [facility] Start: 07-04-2023 End: 07-04-2023 ambulatory Juan José Arce Other [employer] Other Start: 07-04-2023 Telephone encounter Juan José Arce [facility] Start: 06-30-2023 End: 06-30-2023 ambulatory Juan José Claude Other [facility] Other Start: 06-30-2023 Telephone encounter Juan José Arce [facility] Start: 06-14-2023 End: 06-14-2023 ambulatory Juan José Ball Other [employer] Other Start: 06-14-2023 Patient encounter procedure Juan José Arce [facility] Start: 05-06-2023 End: 05-06-2023 ambulatory Juan José Ball Other [facility] Other Start: 05-06-2023 Telephone encounter Juan José Ball [facility] Start: 05-04-2023 End: 05-04-2023 ambulatory Juan José Ball Other [employer] Other Start: 05-04-2023 Office outpatient vi sit 15 minutes Juan José Arce [facility] Start: 03-18-2023 End: 03-18-2023 ambulatory Juan José Arce Other [employer] Other Start: 03-18-2023 Office outpatient vi sit 25 minutes Juan José Arce [facility] Start: 01-31-2023 End: 01-31-2023 ambulatory Juan José Arce Other [facility] Other Start: 01-31-2023 Telephone encounter Juan José Arce [facility] Start: 01-19-2023 End: 01-19-2023 Patient encounter procedure Yandy Ragsdale [facility] Start: 12-07-2022 End: 12-07-2022 ambulatory Juan José Arce Other [employer] Other Start: 12-07-2022 Telephone encounter Juan José Arce [facility] Start: 12-03-2022 End: 12-04-[address] JUAN JOSÉ ARCE Facility:[facility] Start: 11-16-2022 End: 11-16-2022 ambulatory Juan José Arce Other [facility] Other Start: 11-16-2022 Office outpatient vi sit 25 minutes Juan José Arce [facility] Start: 07-31-2022 End: 07-31-[address] JUAN JOSÉ ARCE Facility:[facility] Start: 06-04-[address] JUAN JOSÉ ARCE Facili ty:[facility] Start: 05-31-2022 End: 06-01-[address] JUAN JOSÉ ARCE Facility:[facility] Start: 11-23-2021 End: 11-23-2021 Patient encounter procedure Mj Mendenhall Jr. [facility] Start: 05-10-2017 End: 05-11-2017 Patient encounter procedure JUAN JOSÉ ARCE Facility:[facility] Procedures Date Procedure Procedure Detail Performing Clinician Start: 08-11-2023 Transurethral cystoscopy Yandy Ragsdale Start: 11-23-2021 Cystoscopy Mj raygoza Jr. Start: [...] Fulguration Mj Mendenhall Jr. Start: 02-14-2013 Cysto/TURBT, [place] B ladder bx & fulguration Mj Mendenhall Jr. Start: 01-17-2013 Transurethral resect ion of bladder neoplasm Mj Mendenhall Jr. Appendectomy Mj Jacobo Bilateral tubal ligation Mehrdad Mendenhall Jr. Cardiac pacemaker, d evice (physical object) Mj Mendenhall Jr. Cystoscopy Mj Jacobo Comment on above: 02/06/16 05/07/16 12/20/16 05/02/17 05/01/18 01/21/14 01/03/15 05/05/15 11/24/15 HX Of BCG'S 2 Mj kitchen Comment on above: 2012 2013 Hysterectomy Mj Jacobo Screening for malign ant neoplasm of colon Juan José Arce Other Plan of Treatment Date Care Activity Detail Author Comprehensive metabo lic 2000 panel - Serum or Plasma [facility] enter XR Chest 2 Views [facility] Immunizations Immunization Date Immunization Notes Care Provider Fa cility 06-15-2024 influenza, high dose seasonal, preservative-free [facility] 06-14-2023 influenza, high dose seasonal, preservative-free Juan José Arce Other [employer] [facility] [employer] Other 06-14-2023 influenza virus vaccine, unspecified formulation [facility] 05-18-2022 influenza virus vaccine, split virus (incl. purified surface antigen) Juan José Arce Other [employer] [facility] [employer] Other 05-18-2022 influenza virus vaccine, unspecified formulation Yandy Ragsdale [facility] 09-29-2021 SARS-CoV-2 (COVID-19 ) mRNA-1273 vaccine Mj Mendenhall Jr. [facility] 05-05-2021 influenza virus vaccine, split virus (incl. purified surface antigen) Juan José Arce Other [employer] [facility] [employer] Other 05-05-2021 influenza virus vaccine, unspecified formulation [facility] 09-29-2020 SARS-CoV-2 (COVID-19 ) mRNA-1273 vaccine Mj Mendenhall Jr. [facility] 09-01-2020 SARS-CoV-2 (COVID-19 ) mRNA-1273 vaccine Mj Mendenhall Jr. [facility] 05-19-2020 influenza virus vaccine, split virus (incl. purified surface antigen) Juan José Arce Other [employer] Other 05-19-2020 influenza virus vaccine, unspecified formulation [facility] 05-21-2019 influenza virus vaccine, split virus (incl. purified surface antigen) Juan José Arce Other [facility] [employer] Other 05-21-2019 influenza virus vaccine, unspecified formulation [facility] 05-02-2018 influenza virus vaccine, split virus (incl. purified surface antigen) Juan José Arce Other [facility] [employer] Other 05-02-2018 influenza virus vaccine, unspecified formulation Yandy Lualeisha [facility] 05-16-2017 influenza virus vaccine, split virus (incl. purified surface antigen) Juan José Arce Other [facility] [employer] Other 05-16-2017 influenza virus vaccine, unspecified formulation Yandy Lue [facility] 05-21-2016 influenza virus vaccine, split virus (incl. purified surface antigen) Juan José Arce Other [facility] [employer] Other 05-21-2016 influenza virus vaccine, unspecified formulation Yandy Lue [facility] 05-13-2015 influenza virus vaccine, split virus (incl. purified surface antigen) Juan José Arce Other [employer] Other 05-13-2015 influenza virus vaccine, unspecified formulation [facility] 05-13-2015 pneumococcal conjuga te vaccine, 13 valent Juan José Arce Other [facility] 05-24-2014 tetanus and diphther ia toxoids, adsorbed, preservative free, for adult use (5 Lf of tetanus toxoid and 2 Lf of diphtheria toxoid) Juan José Arce Other [facility] 05-21-2013 pneumococcal polysaccharide vaccine, 23 valent Juan José Arce Other [facility] 05-21-2013 tetanus and diphther ia toxoids, adsorbed, preservative free, for adult use (5 Lf of tetanus toxoid and 2 Lf of diphtheria toxoid) Juan José Arce Other [facility] Payers Date Payer Category Payer [employer] ( [employer] others) [id number] 2019 Medicare [id number] 2016 [employer] others) [id number] 1959 [employer] ( [employer] others) [id number] 1959 Private Health Insurance [id number] 1959 Self-pay 1940 Unknown [id number] 1940 Unknown [id number] 1940 Unknown [id number] 1940 Unknown [id number] 1940 Unknown [id number] 1940 Unknown [id number] 1940 Unknown [id number] Social History Date Type Detail Facility Start: 11-23-2021 End: 08-11-2023 Tobacco smoking status Never smoked tobacco (finding) [facility] Tobacco smoking status Never [facility] Sex Assigned At Female [facility] Start: 1940 Sex Assigned At Female F [facility] Tobacco smoking stat [facility] Unknown if ever smoked [facility] Work Phone: Start: 06-15-2024 Sex Female (finding) [facility] Functional Status Date Assessment Result Facility 08-11-2023 Functional Status N/A [facility] 01-19-2023 Functional Status N/A [facility] Clinical Notes 11-23-2021 to 03-19-2024 Note Date & Type Note Facility 03-19-2024 Note [place] Cardiology - [facility] Subjective Rebecca Hays is a 84 y.o. year old female patient being seen for follow-up Patient Active Problem List Diagnosis Asthma Cardiac pacemaker in situ Chronic obstructive pulmonary disease (CMS/HCC) Conduction disorder of the heart Congestive heart failure (CMS/HCC) Endometriosis Arnulfo hematuria Hematuria Hydronephrosis Hyperlipidemia Essential hypertension Hypertension Inflammatory disease of uterus Kidney stone Malignant neoplasm of urinary bladder (CMS/HCC) Primary malignant neoplasm of bladder (CMS/HCC) Primary malignant neoplasm of ureter (CMS/HCC) Malignant neoplasm of ureter (CMS/HCC) Malignant neoplasm of uterus (CMS/HCC) Paroxysmal atrial fibrillation (CMS/HCC) Stage 3 chronic kidney disease (CMS/HCC) Symptoms involving urinary system Tachycardia Urethral syndrome Urinary tract infectious disease Encounter for 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 She never been on any anticoagulation per her report and she does not know why, permanent pacemaker, hypertension, hyperlipidemia, COPD, and chronic kidney disease. She states that she has been doing well. She states sometimes when she gets up during the night to use the bathroom she feels lightheaded and dizzy and sometimes during the daytime she does not if she gets up quickly. She denies any syncope or near syncope. She denies any falling for the last year or so. She denies chest pain or shortness of breath at rest or with exertion. She denies orthopnea paroxysmal nocturnal dyspnea or legs edema. She states that she does not drink a lot of water at times. She drinks 1 to 2 cups of coffee a day ROS All systems were reviewed and they were negative except for positive findings noted in the history Past Medical History: Diagnosis Date Abnormal ECG Arrhythmia Asthma Atrial fibrillation (CMS/HCC) Atrial flutter (CMS/HCC) Cancer (CMS/HCC) CHF (congestive heart failure) (CMS/HCC) Chronic kidney disease Conduction disorder of the heart Hydronephrosis Hyperlipidemia Hypertension Tachycardia Past Surgical History: Procedure Laterality Date INSERT / REPLACE / REMOVE PACEMAKER TUBAL LIGATION Family History Problem Relation Name Age of Onset No Known Problems Mother No Known Problems Father Social History Tobacco Use Smoking status: Never Smokeless tobacco: Never Substance Use Topics Alcohol use: Not Currently Allergies Allergies Allergen Reactions Iodine Other Povidone-Iodine Other Sulfa (Sulfonamide Antibiotics) Other Medications Current Outpatient Medications: aspirin 81 mg EC tablet, in the morning., Disp: , Rfl: atorvastatin (Lipitor) 40 mg tablet, atorvastatin 40 mg tablet TAKE 1 TABLET DAILY IN EVENING, Disp: , Rfl: ipratropium-albuteroL (Combivent Respimat) 20-100 mcg/actuation inhaler, Combivent Respimat 20 mcg-100 mcg/actuation solution for inhalation INHALE 1 PUFF BY MOUTH FOUR TIMES DAILY, Disp: , Rfl: lisinopriL-hydrochlorothiazide 10-12.5 mg tablet, lisinopril 10 mg-hydrochlorothiazide 12.5 mg tablet TAKE 1 TABLET BY MOUTH DAILY, Disp: , Rfl: loratadine (Claritin) 10 mg tablet, in the morning., Disp: , Rfl: montelukast (Singulair) 10 mg tablet, montelukast 10 mg tablet TAKE 1 TABLET BY MOUTH EVERY DAY, Disp: , Rfl: sotalol AF 120 mg tablet, Take 120 mg by mouth in the morning., Disp: , Rfl: Objective Visit Vitals BP 117/71 (BP Location: Left arm, Patient Position: Sitting) Pulse 62 Ht 1.575 m (5' 2 ) Wt 49 kg (108 lb) SpO2 90% BMI 19.75 kg/m??? Smoking Status Never BSA 1.46 m??? Physical exam: GENERAL: alert and oriented x3, well developed, in no acute distress. HEAD: atraumatic, normocephalic. EYES: CARLTON, EOMI. NECK: trachea midline, no JVD present, no carotid bruits present. CARDIAC: S1, S2 present. RRR. No murmur, rubs, or gallops. RESPIRATORY: CTAB, no increased effort of breathing, no rales, rhonchi, or wheezing. ABDOMEN: soft, nontender, nondistended. EXTREMITIES: no lower extremity edema,No rash/skin discoloration present. Varicose veins bilaterally without significant skin changes NEURO: strength/sensation equal and symmetric in bilateral upper and lower extremities. PSYCH: appropriate mood, affect, and judgement. Recent Labs Imaging and other tests EKG performed today 03/19/2024 showed atrial paced rhythm at 64 bpm, intrinsic ventricular activity, voltage criteria for LVH, QTc interval 449 ms EKG: Echo: 08/02/2023 at [facility] Stress test: 12/15/2015 Carotid Doppler study 06/17/2023 Cardiac cath: Event Monitor: Cardiac MRI: CX ray: Assessment/Plan Paroxysmal atrial flutter with degeneration at times to A-fib, maintaining normal sinu (more content not included)... [facility] 09-02-2023 Evaluation note Encounter Date Diagnosis Assessment Notes Sep, Dysuria (ICD-10 - R30.0) [facility] Other [id number] NoteUT Electrophysiology Consult Note Reason for visit: follow [...] flutter or fib EKG 11/17/2018 a sensed [place] conduction 05/10/2017 AV sequential pacing 12/03/2016 shows sinus rhythm 12/08/2015 sinus rhythm 05/12/2015 shows sinus rhythm Device check that was performed on 12/02/2020 reveals a [employer] Accolade device that was implanted on [...] no teeth problems Respi (more content not included)...[facility] 07-18-2023 NotePatient here for 6 mo follow up PAF, hypertension, and hyperlipidemia. Device was interrogated 2 weeks ago in the office. She denies chest pain, palpitations, and lightheadedness/syncope. Had carotid US last month. Review of Systems Cardiovascular: Positive for dyspnea on exertion (asthma). All other systems reviewed and are negative.[facility] 07-05-2023 Hospital Discharge instructions Follow Up Care 07/05/2023 15:39:04 With:Jn MCCRARY, Yandy Martínez URMaya, URO Address: When:Within 1 Year(s) Comments:w/Cysto/Cytology [facility] 12-04-2023 Evaluation note* Encounter Date Diagnosis Assessment Notes Treatment Notes Treatment Clinical Notes Jul, Paroxysmal atrial fibrillation (ICD-10 - I48.0) [facility] Other 11-30-2023 Evaluation note* Encounter Date Diagnosis Assessment Notes Treatment Notes Treatment Clinical Notes Jun, Paroxysmal atrial fibrillation (ICD-10 - I48.0) [facility] Other 11-14-2023 Evaluation note* Encounter Date Diagnosis [...] are maintaining regular 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 No bleeding complications Jun, Mild persistent asthma, [...] patient on monthly SBE and yearly mammograms. 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 Mar, Elevated cholesterol (ICD-10 - E78.00) Instructed [...] pacemaker (ICD-10 - Z95.0) Continue PM checks. [facility] Other 07-03-2023 Evaluation note* Encounter Date Diagnosis Assessment Notes Treatment Notes Treatment Clinical Notes Jan, Primary hypertension (ICD-10 - I10) [facility] Other 06-21-2023 Hospital Discharge instructions Patient Education [...] if anything looks unusual. Women with a efdrzh-cahj-pwkcgc risk for skin cancer may want to see a security delivery specialist (spray cementer) for an annual body check. What are the benefits of screening? Cancer screening is done to look for cancer in the very early stages, before it spreads and becomesharder to treat and before you would start to notice symptoms. Finding cancer early improves the chances of successful treatment. It may save your life. Where to find more information [place] [employer]: www.cancer.org Centers for Disease Control and Prevention: www.cdc.gov National Cancer [place]: www.cancer.gov U.S. Department of Health and Human [...] provider. Document Revised: 12/14/2021 Document Reviewed: 06/13/2020 [employer] Patient Education 2022 [employer]. 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 Oct, Elevated cholesterol (ICD-10 - E78.00) Diet [...] High risk medication use (ICD-10 - Z79.899) [facility] Other 04-25-2022 Hospital Discharge instructions Patient Education [...] including vitamins, herbs, eye drops, creams, and cgjr-mec-fzvopmo medicines. Any problems you or family members [...] provider tells you to take them. ?Taking ugls-waw-pivuthy medicines, vitamins, herbs, and supplements. Follow instructions [...] Follow these instructions at home: Medicines Take wkyi-lxt-vpeutqm and prescription medicines only as told by [...] 07/15/2001 Document Revised: 07/10/2019 Document Reviewed: 07/10/2019 [employer] Patient Education 2020 [employer]. Follow Up Care 11/03/2021 15:16:19 With:Abdirashid Lundberg MD, Mj Trejo URO Address: [facility] [address], [place] [address]- When:11/23/2022 Comments:Cysto [facility] 04-25-2022 Evaluation + Plan note Diagnostic Tests Pending * Urine Cytology ([facility]) 11/23/21 [facility] Evaluation noteNo InformationNort [place] Other Evaluation noteNo assessment information available [facility] Work Phone: Hisrmwc general Narrative - Reported* Type Description Date [...] CYSTO W/ BLADDER Hospitalization History SEE SURGICAL [facility] Other [facility] general Narrative - Reported* Type Description Date Surgical History CARDIAC PACEMAKER/DEFIBRILLATOR 2010 Surgical History APPENDECTOMY Surgical History CYSTO W/ BLADDER Hospitalization History SEE SURGICAL [facility] Other [facility] general Narrative - Reported* Type Description Date [...] W/ BLADDER Hospitalization History SEE SURGICAL HX [facility] Other Hospital course Narrative No data available for this section [facility] Progress note No data available for this section [facility] Summary Purpose Family History No Family History Records FoundNo Family History Records Found No data available for this section No Family History Records FoundNo Family History Records Found Advance Directives No Advanced Directives Records Found Advance Directive Response Recorded Date/ Time Advance Directives No November 29, 2017 3:03pm Advance Directive Response Recorded Date/ Time Advance Directives No November 29, 2017 2:03pm Chief Complaint and Reason for Visit Chief Complaint UA, Burning Chief Complaint Admit Date UA, Burning March 30, 2024 11 :42am CC Adult Risk Stratification June 11:14am WELLNESS June 15, 2024 1:20pm Additional Source Comments INFORMATION SOURCE (unrecogn ized section and content) DATE CREATED AUTHOR 07/03/2020 [facility] DATE CREATED AUTHOR AUTHOR'S ORGANIZ ATION 12/10/2022 [facility] DATE CREATED AUTHOR AUTHOR'S ORGANIZ ATION 03/20/2024 [facility] DATE CREATED AUTHOR AUTHOR'S ORGANIZ ATION 06/28/2024 [facility] REASON FOR VISIT (unrecogniz ed section and content) 6 MONTH FOLLOW UPLab Results refill4 month Follow upCOVID-Positivemucus chest congestionWellnessRefillrefillUA- Burning Patient Care team informatio n (unrecognized section and content) Team Status: Active Member Role Status Dates Juan José Arce , DO Primary Care Provider Active Team Status: Inactive Member Role Status Dates Juan José Arce , DO Primary Care Provide r, Attending Provider Active Start: March 30, 2024 End: March 30, 2024 Team Status: Active Member Role Status Dates Juan José Arce , DO Primary Care Provide r, Attending Provider Active Start: June 07, 2024 Team Status: Inactive Member Role Status Dates Juan José Arce , DO Primary Care Provide r, Attending Provider Active Start: June 15, 2024 End: June 15, 2024 Goals (unrecognized section and content) Goals may be documented in a n alternate section FOR RECORDS PERTAINING TO PATIENTS WHO ARE [...] BE BASED ON THE PRIMARY CLINICAL RECORDS. [facility]. provides no warranty or guarantee of the accuracy or completeness of information in this document.
[2024-07-20 14:07] LABS: Alanine Aminotransferase 25 U/L (14-59); Albumin Globulin Ratio 1.1; Albumin Level 3.5 g/dL (3.4-5.0); Alkaline Phosphatase 66 U/L (46-116); Anion Gap 8.4; Aspartate Amino Transferase 16 U/L (15-37); BUN Creatinine Ratio 26.6; Bilirubin Total 0.8 mg/dL (0.2-1.0); Calcium 9.3 mg/dL (8.5-10.1); Carbon Dioxide 31.2 mmol/L (21.0-32.0); Chloride 105 mmol/L (98-107); Chol HDL Ratio 1.8; Cholesterol 149 mg/dL (<=200); Estimated GFR (African America 58 (>=60 mL/min/1.73m^2); Estimated GFR (Non-African Ame 48 (>=60 mL/min/1.73m^2); Globulin 3.3 g/dL; Glucose 137 mg/dL (74-106); HDL Cholesterol 83 mg/dL (40-60); Potassium 3.6 mmol/L (3.5-5.1); Sodium 141 mmol/L (136-145); Total Protein 6.8 g/dL (6.4-8.2); Triglycerides 75 mg/dL (<=150)
[2024-07-20 14:08] LABS: Thyroid Stimulating Hormone 2.283 uIU/mL (0.358-3.740)
== END 2024-07-20 12:50 | disposition home or self-care (01) ==
LOC: RAD 12:49
PROVIDERS: PCP Internal Medicine; Visit Provider Internal Medicine
DX: R05.9 Cough, unspecified (principal); M81.0 Age-related osteoporosis without current pathological fracture; N18.31 Chronic kidney disease, stage 3a; E78.00 Pure hypercholesterolemia, unspecified; R53.83 Other fatigue; M85.80 Other specified disorders of bone density and structure, unspecified site; I12.9 Hypertensive chronic kidney disease with stage 1 through stage 4 chronic kidney disease, or unspecified chronic kidney disease
CPT/HCPCS: 36415; 71046; 77080; 80053; 80061; 84270; 84443; 85025

== ENCOUNTER 2024-08-10 12:58 | Outpatient (OUT) | payer MEDICARE, OTHER, SELFPAY ==
--- NOTE | 2024-08-10 14:10 | RT_ITS ---
[facility] Test Date: 2024-08-10 Pat Name: TESSIE EL Department: Room: - Gender: Female Carpenter Packing: Felipe Bowman RRT : 1940 Requested By: EUFEMIA CALVO Order Number: [id number] Hesham MD: Azael Robbins Interpretive Statements Pulmonary function testing was completed according to ATS criteria. Findings were considered accurate and reproducible, with exception of DLCO which did not meet ATS standards. Both pre- and post-bronchodilator values utilized for spirometry. Quoted PFT from 04/08/2000 is unretrievable by this software. Spirometry (based on pre-bronchodilator values):' -FEV1/FVC: Reduced @ 49% -FEV1: Severely reduced @ 39% -FVC: Reduced @ 59% -There is a positive bronchodilator response in FVC. Lung volumes by plethysmography (based on pre-bronchodilator values): -RV: Increased @ 125% -TLC: Normal @ 89% Diffusion capacity: -DLCO: Severe reduction @ 49% when corrected for Hb 13.7g/dL Impressions: -Spirometry suggests severe obstruction with a positive bronchodilator response. Elevated RV suggests air trapping. Severe diffusion impairment. This pattern could be seen in COPD with a bronchodilator response, asthma-COPD overlap, or asthma with a concomitant cardiopulmonary vascular disorder or interstitial lung disease. Clinical correlation required. Electronically Signed On 08-14-2024 8:32:37 EST by Azael Robbins
[2024-08-10] MEDS: ALBUTEROL SULFATE 2.5 MG/3 ML VIAL NEB IH (14:12)
== END 2024-08-10 12:59 | disposition home or self-care (01) ==
LOC: CARD 12:59
PROVIDERS: PCP Internal Medicine; Visit Provider Internal Medicine
DX: R05.9 Cough, unspecified (principal); J45.30 Mild persistent asthma, uncomplicated
CPT/HCPCS: 94060; 94726; 94729

== ENCOUNTER 2024-08-21 10:04 | Outpatient (OUT) | payer MEDICARE, OTHER, SELFPAY ==
--- NOTE | 2024-08-21 11:14 | W.PM.PROCNOT ---
Procedure: 6 Minute Walk Date: 08/21/2024 Indication: Dyspnea MMRC: 3 Resting data: -BP: 153/78 -HR: 60 -SpO2: 98% -FiO2: Room air -Emeka: 2 Description: 6 minute walk was initiated according to standard protocol. Patient ambulated for a total of 6 minutes with the lowest SpO2 at 95% on room air, the highest heart rate at 71, and highest Emeka 4. Recovery data: -BP: 168/115 -HR: 60 -SpO2: 97% -FiO2: Room air -Emeka: 2 Ambulation: Walk distance was not reported by the study overseer. There were no stops reported. Impressions: No ambulatory desaturations. Recommendations: No supplemental oxygen indicated for activity/ambulation based on this study. Clinical correlation required.
== END 2024-08-21 10:05 | disposition home or self-care (01) ==
LOC: CARD 10:04
PROVIDERS: PCP Internal Medicine; Visit Provider Internal Medicine
DX: R06.02 Shortness of breath (principal); J42 Unspecified chronic bronchitis
CPT/HCPCS: 94618

== ENCOUNTER 2024-10-11 13:07 | Outpatient (OUT) | payer MEDICARE, OTHER, SELFPAY ==
--- OUTSIDE RECORDS SUMMARY | 2024-10-11 13:27 | XMS_ITS | CCD ---
Author Organization [facility] Care Team Providers Care Draw Frame Operator Name Role Phone JUAN JOSÉ ARCE Referring [...] Ragsdale Attending Unavailable Yandy Ragsdale Admitting Unavailable JUAN URRUTIA Referring Unavailable SAVANAH RASCON Attending Unavailable JUAN URRUTIA Referring Unavailable LADARIUS, JUAN Attending Unavailable Allergies Allergy Classification Reported Allergen(s) Allergy Type Date of Onset Reaction(s) Facility (1 source) Povidone-Iodine Drug Allergy 05-23-20 12 [facility] (6 sources) Sulfonamides (Antibiotic); Translations: [SULFA (SULFONAMIDE ANTIBIOTICS)] Drug allergy (disorder) 12-25-19 13 Unknown Reaction [facility] (17 sources) Iodine; Translations: [iodine] Drug Allergy 07-18-20 23 Blister (morphologic abnormality) [facility] (4 sources) Sulfonamides (Antibiotic); Translations: [sulfa drugs] Drug allergy Ir [facility] (10 sources) Albuterol / Ipratropium Drug Allergy Unknown [facility] Other (12 sources) montelukast Drug Allergy 12-13-19 24 Unknown, Unknown Reaction [facility] (10 sources) Sulfamethoxazole / Trimethoprim Drug Allergy Unknown [facility] Other (10 sources) Substance with sulfonamide structure and antibacterial mechanism of action (substance) Drug allergy Unknown [facility] Other (2 sources) Iodine Drug Allergy 01-13-20 13 [facility] (2 sources) Albuterol Drug Allergy 12-13-19 24 Unknown Reaction [facility] (2 sources) Ipratropium Drug Allergy 12-13-19 24 Unknown Reaction [facility] (2 sources) Sulfamethoxazole Drug Allergy 12-13-19 24 Unknown Reaction [facility] (2 sources) Trimethoprim Drug Allergy 12-13-19 24 Unknown Reaction [facility] (1 source) Povidone-Iodine; Translations: [POVIDONE-IODINE] Drug Allergy 07-19-20 14 [facility] Medications Current Medications Medication Drug Class(es) [...] Start: 11-09-2021 take 1 capsule by mo [facility] every twelve hours Keflex 500 mg Cap 500 mg = 1 cap(s), Oral, q12hr, Take 1 pill the day before the procedure and 1 pill after the procedure., # 2 cap(s), Refills(s) 0, Pharmacy: [id number], 158, cm, 01/05/21 13:27:00 EDT, Height/Length Dosing, [...] atrial fibrillation; Translations: [Paroxysmal atrial fibrillation] Onset: 03-19-2024 Chronic Chronic kidney disease (12 sources) Chronic kidney disease stage 3A ; Translations: [Stage 3a chronic kidney disease] 12-11-2023 Chronic Chronic kidney disease (6 sources) Chronic kidney disease; Translations: [CHRONIC KIDNEY DISEASE STAGE 3A] Onset: 11-30-2022 Chronic obstructive pulmonary disease and bronchiectasis (13 sources) Chronic obstructive lung disease; Translations: [Simple chronic bronchitis] 04-04-2019 Chronic Conduction disorders (16 sources) Cardiac pacemaker in [...] urine; Translations: [Urinary symptoms ] 04-04-2019 Episodic Heart valve disorders (2 sources) Nonrheumatic mitral (valve) insufficiency; Translations: [Nonrheumatic mitral (valve) insufficiency] Onset: 09-25-2024 Chronic Occlusion or stenosis of precerebral arteries (12 sources) Bilateral stenosis of carotid arteries; Translations: [Occlusion and stenosis of bilateral carotid arteries] Chronic Osteoporosis (11 sources) Age-related osteoporosis without current pathological fracture; Translations: [Senile osteoporosis] Onset: 05-31-2022 Chronic Other aftercare (2 sources) Other 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 (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) drug therapy; Translations: [OTH CANE FLUME WATCHMAN CURRENT DRUG THERAPY] Onset: 12-09-2022 Episodic Other [...] Classification Problem Date Documented Da te Episodic/Chronic Conditions associated with dizziness or vertigo (2 sources) Dizziness and giddiness; Translations: [Dizziness and giddiness] Onset: 03-19-2024 Episodic Other aftercare (1 source) 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; Translations: [JAIL CURRENT USE OF ASPIRIN] Onset: 08-03-2022 Episodic [...] Value Interpretation Reference Range Facility Office Visiton 09-25-2024 Follow-up visit [id number] Rebecca Hays 1940 F Date Provider Department Center 09/25/2024 Haroldo-JUAN URRUTIA KATEY Seo Family History Problem Relation Age of Onset No Known Problems Mother No Known Problems Father Family Status - Relation Status Age at Mother Father Level of Service:67604 [place] OFFICE/OUTPATIENT ESTABLISHED LOW MDM 20 MIN Normal [facility] - Chemistry and C hemistry - challengeon 03-30-2024 Bilirubin Ql (U) Negative [facility] Glucose (U) [Mass/Vol] Negative [facility] Ketones Ql (U) Negative [facility] pH (U) 5 [pH] [facility] Specific gravity (U) [Rel density] 1.010 [facility] Urobilinogen (U) [Mass/Vol] 0.2 mg/dL [facility] Laboratory - Specimen inform ationon 03-30-2024 Appearance (U) cloudy [facility] Color (U) darkyellow [facility] Laboratory - Urinalysison Leukocyte esterase Test strip Ql (U) ++ [facility] Nitrite Ql (U) Negative [facility] Protein Ql (U) ++ [facility] No Panel Informationon 03-30 Urine Occult Blood +++ [facility] 29on 03-19-2024 29 Addended by: SAVANAH RASCON on: 03/19/2024 02:47 PM Modules accepted: Orders Normal [facility] Office Visiton 03-19-2024 Follow-up visit [id number] Rebecca Hays 1940 F Date Provider Department Center 03/19/2024 [id number] RASCON CARD [facility] Family History Problem Relation Age of Onset No Known Problems Mother No Known Problems Father Family Status - Relation Status Age at Mother Father Level of Service:45708 [place] OFFICE/OUTPATIENT ESTABLISHED MOD MDM 30 MIN Reason for Visit and Comments: Atrial Fibrillation [80] Follow-up [862694] - Atrial fibrillation Normal [facility] Urinalysis - DIPSTICKon 02-0 Appearance (U) cloudy [facility] Other Bilirubin Ql (U) Negative [employer] Other Color (U) yellow [facility] Other Glucose Ql (U) Negative [facility] Other Hemoglobin Ql (U) ++ Reactivity Other Ketones Ql (U) Negative [facility] Other Leukocyte esterase Test strip Ql (U) 125++ [facility] Other Nitrite Ql (U) Negative [facility] [facility] Other pH (U) 7.5 [pH] [facility] Other Protein Ql (U) 15 [facility] Other Specific gravity (U) [Rel density] 1.005 [facility] Other Urobilinogen (U) [Mass/Vol] 0.2 mg/dL [facility] Other Urinalysis - DIPSTICK [facility] Other CBC AUTO DIFFon 12-03-2022 BASO # 0.1 103/ul Normal 0.0-0.1 [facility] Comment on above: Performed By: #### C BC #### [facility] [address] [place] [address] Dr. Radha Pacheco Basophils/100 WBC (Bld) 1.0 % Normal 0.2-2.0 [facility] Comment on above: Performed By: #### C BC #### [facility] [address] [place] [address] Dr. Radha Pacheco EO # 0.2 103/ul Normal 0.0-0.7 [facility] Comment on above: Performed By: #### C BC #### [facility] [address] [place] [address] Dr. Radha Pacheco Eosinophils/100 WBC (Bld) 2.7 % Normal 0.9-7.0 [facility] Comment on above: Performed By: #### C BC #### [facility] [address] [place] [address] Dr. Radha Pacheco Erythrocyte distribution width (RBC) [Ratio] 13.2 % Normal 11.0-15.0 [facility] Comment on above: Performed By: #### C BC #### [facility] [address] [place] [address] Dr. Radha Pacheco Hematocrit (Bld) [Volume fraction] 43.7 % Normal 36.0-48.0 [facility] Comment on above: Performed By: #### C BC #### [facility] [address] [place] [address] Dr. Radha Pacheco Hemoglobin (Bld) [Mass/Vol] 13.8 g/dL Normal 12.0-16.0 [facility] Comment on above: Performed By: #### C BC #### [facility] [address] [place] [address] Dr. Radha Pacheco IG # 0.01 10e3/ul Normal 0.00-0.03 [facility] Comment on above: Performed By: #### C BC #### [facility] [address] [place] [address] Dr. Radha Pacheco IG % 0.1 % Normal 0.0-0.5 [facility] Comment on above: Performed By: #### C BC #### [facility] [address] [place] [address] Dr. Radha Pacheco LYMPH # 2.6 103/ul Normal 1.2-3.8 [facility] Comment on above: Performed By: #### C BC #### [facility] [address] [place] [address] Dr. Radha Pacheco Lymphocytes/100 WBC (Bld) 37.3 % Normal 20.5-60.0 [facility] Comment on above: Performed By: #### C BC #### [facility] [address] [place] [address] Dr. Radha Pacheco MANUAL DIFF REQ NO Normal [facility] Comment on above: Performed By: #### C BC #### [facility] [address] [place] [address] Dr. Radha Pacheco MCH (RBC) [Entitic mass] 28.5 pg Normal 26.7-34.0 [facility] Comment on above: Performed By: #### C BC #### [facility] [address] [place] [address] Dr. Radha Pacheco MCHC (RBC) [Mass/Vol] 31.6 g/dL Normal 29.9-35.2 [facility] Comment on above: Performed By: #### C BC #### [facility] [address] [place] [address] Dr. Radha Pacheco MCV (RBC) [Entitic vol] 90.3 fL Normal 81.0-99.0 [facility] Comment on above: Performed By: #### C BC #### [facility] [address] [place] [address] Dr. Radha Pacheco MONO # 0.4 103/ul Normal 0.3-0.8 [facility] Comment on above: Performed By: #### C BC #### [facility] [address] [address] [address] Radha Pacheco Monocytes/100 WBC (Bld) 6.2 % Normal 1.7-12.0 [facility] Comment on above: Performed By: #### C BC #### [facility] [address] [address] [address] Radha Pacheco NEUT # 3.6 103/ul Normal 1.4-6.5 [facility] Comment on above: Performed By: #### C BC #### [facility] [address] [place] [address] Dr. Radha Pacheco Neutrophils/100 WBC (Bld) 52.7 % Normal 43.0-75.0 [facility] Comment on above: Performed By: #### C BC #### [facility] [address] [place] [address] Dr. Radha Pacheco Platelet mean volume (Bld) [Entitic vol] 9.7 fL Normal 9.5-13.5 [facility] Comment on above: Performed By: #### C BC #### [facility] [address] [place] [address] Dr. Radha Pacheco PLT 240 103/ul Normal 150-450 [facility] Comment on above: Performed By: #### C BC #### [facility] [address] [place] [address] Dr. Radha Pacheco RBC 4.84 106/ul Normal 4.20-5.40 [facility] Comment on above: Performed By: #### C BC #### [facility] [address] [place] [address] Dr. Radha Pacheco WBC 6.9 103/ul Normal 4.0-11.0 [facility] Comment on above: Performed By: #### C BC #### [facility] [address] [place] [address] Dr. Radha Pacheco LIPID PROFILEon 12-03-2022 CHOL-HDL RATIO NORM SEE BELOW Normal [facility] Comment on above: Result Comment: 3.3 - 4.4 LOW RISK 4.4 - 7.1 AVERAGE RISK 7.1 - 11.0 MODERATE RISK >11.0 HIGH RISK Performed By: #### B MP, LIPID, ALT #### [facility] [address] [address] [address] Radha Pacheco Cholesterol [Mass/Vol] 145 mg/dL Normal <=200 [facility] Comment on above: Performed By: #### B MP, LIPID, ALT #### [facility] [address] [address] [address] Radha Pacheco Cholesterol in HDL [Mass/Vol] 71 mg/dL Critically high 40-60 [facility] Comment on above: Performed By: #### B MP, LIPID, ALT #### [facility] [address] [address] [address] Radha Pacheco Cholesterol in LDL [Mass/Vol] 56.8 mg/dL Normal [facility] Comment on above: Performed By: #### B MP, LIPID, ALT #### [facility] [address] [address] [address] Radha Pacheco Cholesterol.total/ Cholesterol in HDL [Mass ratio] 2.0 {ratio} Normal [facility] Comment on above: Performed By: #### B MP, LIPID, ALT #### [facility] [address] [address] [address] Radha Pacheco HDL NORMAL > or = 60 mg/dl - LOW CARDIOVASCULAR RISK <40 mg/dl - HIGH CARDIOVASCULAR RISK Normal [facility] Comment on above: Performed By: #### B MP, LIPID, ALT #### [facility] [address] [address] [address] Radha Pacheco LDL CALC NORMAL SEE BELOW Normal [facility] Comment on above: Result Comment: <100 mg/dl OPTIMAL 100 - 129 mg/dl NEAR OR ABOVE OPTIMAL 130 - 159 mg/dl BORDERLINE HIGH 160 - 189 mg/dl HIGH >190 mg/dl VERY HIGH Performed By: #### B MP, LIPID, ALT #### [facility] [address] [address] [address] Radha Pacheco Triglyceride [Mass/Vol] 86 mg/dL Normal <=150 [facility] Comment on above: Performed By: #### B MP, LIPID, ALT #### [facility] [address] [address] [address] Radha Pacheco VLDL CALC 17.2 mg/dL Normal [facility] Comment on above: Performed By: #### B MP, LIPID, ALT #### [facility] [address] [address] [address] Radha Pacheco PROF CHEM 8 (BAS METB)on Anion gap [Moles/Vol] 9.1 mmol/L Normal [facility] Comment on above: Performed By: #### B MP, LIPID, ALT #### [facility] [address] [place] [address] Dr. Radha Pacheco Calcium [Mass/Vol] 10.0 mg/dL Normal 8.5-10.1 [facility] Comment on above: Performed By: #### B MP, LIPID, ALT #### [facility] [address] [place] [address] Dr. Radha Pacheco Chloride [Moles/Vol] 103 mmol/L Normal 98-107 [facility] Comment on above: Performed By: #### B MP, LIPID, ALT #### [facility] [address] [place] [address] Dr. Radha Pacheco CO2 [Moles/Vol] 32.2 mmol/L Critically high 21.0-32.0 [facility] Comment on above: Performed By: #### B MP, LIPID, ALT #### [facility] [address] [place] [address] Dr. Radha Pacheco Creatinine [Mass/Vol] 0.97 mg/dL Normal 0.55-1.02 [facility] Comment on above: Performed By: #### B MP, LIPID, ALT #### [facility] [address] [place] [address] Dr. Radha Pacheco EGFR-AF GAMBIAN >60 Normal >=60 [facility] Comment on above: Performed By: #### B MP, LIPID, ALT #### [facility] [address] [place] [address] Dr. Radha Pacheco EGFR-NON AF GAMBIAN 55 mL/min/1.73m2 Critically low >=60 [facility] Comment on above: Performed By: #### B MP, LIPID, ALT #### [facility] [address] [address] [address] Radha Pacheco Glucose [Mass/Vol] 108 mg/dL Critically high 74-106 T [facility] Comment on above: Performed By: #### B MP, LIPID, ALT #### [facility] [address] [address] [address] Radha Pacheco Potassium [Moles/Vol] 4.3 mmol/L Normal 3.5-5.1 [facility] Comment on above: Performed By: #### B MP, LIPID, ALT #### [facility] [address] [place] [address] Dr. Radha Pacheco Sodium [Moles/Vol] 140 mmol/L Normal 136-145 [facility] Comment on above: Performed By: #### B MP, LIPID, ALT #### [facility] [address] [address] [address] Radha Pacheco Urea nitrogen [Mass/Vol] 20.0 mg/dL Critically high 7.0-18.0 [facility] Comment on above: Performed By: #### B MP, LIPID, ALT #### [facility] [address] [address] [address] Radha Pacheco Urea nitrogen/Creatinin e [Mass ratio] 20.6 mg/mg Normal [facility] Comment on above: Performed By: #### B MP, LIPID, ALT #### [facility] [address] [place] [address] Dr. Radha Pacheco SGPTon 12-03-2022 ALT [Catalytic activity/Vol] 25 U/L Normal 14-59 [facility] Comment on above: Performed By: #### B MP, LIPID, ALT #### [facility] [address] [place] [address] Dr. Radha Pacheco UA RANDOM W/MICROSCOPICon BACTERIA TRACE Abnormal NONE SEEN [facility] Comment on above: Performed By: #### U AMIC #### [facility] [address] [address] [address] Radha Pacheco Bilirubin Ql (U) Negative Normal NEGATIVE [facility] Comment on above: Performed By: #### U AMIC #### [facility] [address] [address] [address] Radha Pacheco CAST NONE SEEN Normal NONE SEEN [facility] Comment on above: Performed By: #### U AMIC #### [facility] [address] [address] [address] Radha Pacheco Clarity (U) CLEAR Normal CLEAR [facility] Comment on above: Performed By: #### U AMIC #### [facility] [address] [address] [address] Radha Pacheco Color (U) LT. YELLOW Normal YELLOW [facility] Comment on above: Performed By: #### U AMIC #### [facility] [address] [address] [address] Radha Pacheco Crystals LM Nom (Urine sed) NONE SEEN Normal NONE SEEN [facility] Comment on above: Performed By: #### U AMIC #### [facility] [address] [address] [address] Radha Pacheco Epithelial cells LM Ql (Urine sed) FEW Abnormal NONE SEEN /RARE [facility] Comment on above: Performed By: #### U AMIC #### [facility] [address] [place] [address] Dr. Radha Pacheco Glucose Ql (U) Negative Normal NEGATIVE [facility] Comment on above: Performed By: #### U AMIC #### [facility] [address] [address] [address] Radha Pacheco Hemoglobin Ql (U) Negative Normal NEGATIVE [facility] Comment on above: Performed By: #### U AMIC #### [facility] [address] [address] [address] Radha Pacheco Ketones Ql (U) Negative Normal NEGATIVE [facility] Comment on above: Performed By: #### U AMIC #### [facility] [address] [place] [address] Dr. Radha Pacheco LEUKOCYTES SMALL Abnormal NEGATIVE [facility] Comment on above: Performed By: #### U AMIC #### [facility] [address] [address] [address] Radha Pacheco MUCOUS NONE SEEN Normal NONE SEEN [facility] Comment on above: Performed By: #### U AMIC #### [facility] [address] [place] [address] Dr. Radha Pacheco Nitrite Ql (U) Negative Normal NEGATIVE [facility] Comment on above: Performed By: #### U AMIC #### [facility] [address] [place] [address] Dr. Radha Pacheco pH (U) 7.5 [pH] Normal 5-9 [facility] Comment on above: Performed By: #### U AMIC #### [facility] [address] [place] [address] Dr. Radha Pacheco RBC NONE SEEN Abnormal 0-2 [facility] Comment on above: Performed By: #### U AMIC #### [facility] [address] [place] [address] Dr. Radha Pacheco SPEC GRAVITY 1.015 Normal 1.005-<=1.025 [facility] Comment on above: Performed By: #### U AMIC #### [facility] [address] [place] [address] Dr. Radha Pacheco UA PROTEIN Negative Normal NEGATIVE/ TRACE [facility] Comment on above: Performed By: #### U AMIC #### [facility] [address] [place] [address] Dr. Radha Pacehco Urobilinogen Qn (U) 0.2 {Teodora'U}/dL Normal 0.2 - 1.0 [facility] Comment on above: Performed By: #### U AMIC #### [facility] [address] [place] [address] Dr. Radha Pacheco WBC 2-5 Abnormal NONE SEEN [facility] Comment on above: Performed By: #### U AMIC #### [facility] [address] [place] [address] Dr. Radha Pacheco XR CHEST 1 Von 07-31-2022 XR CHEST 1 V EXAM: XR CHEST 1 V HISTORY: COUGH COMPARISON: 11/20/2021 TECHNIQUE: Single view of the chest. FINDINGS: Left chest cardiac device and leads noted. Unremarkable cardiomediastinal silhouette. No focal consolidation, pleural effusion, pulmonary congestion or pneumothorax. IMPRESSION: No acute findings. Electronically authenticated by: ANTONIO CUADRA Date: 2022-07-31 10:49 Normal [facility] US CAROTID ART BILon 022 US [...] by: SHELLIE PATEL Date: 2022-06-01 06:20 Normal [facility] XR DEXA BONE DENSITYon 05-31 XR [...] by: SHELLIE PATEL Date: 2022-05-31 15:14 Normal [facility] Vital Signs Date Time Vital Sign Value Performing Clinician Facility 06-15-2024 13:50-0500 Body mass index (BMI) [Ratio] 20.5 kg/m2 [facility] 06-15-2024 13:50-0500 Diastolic blood pressure 74 mm[Hg] [facility] 06-15-2024 13:50-0500 Heart rate 63 /min [facility] 06-15-2024 13:50-0500 Systolic blood pressure 121 mm[Hg] [facility] 06-14-2024 07:26-0500 Body height 157.48 cm [facility] 06-14-2024 07:26-0500 Body weight 50.8 kg [facility] 08-11-2023 13:31-0500 Blood Pressure Location Yandy Lue [facility] 08-11-2023 13:31-0500 Diastolic blood pressure 55 mm[Hg] Yandy Lue [facility] 08-11-2023 13:31-0500 Heart rate 106 /min Yandy Lue [facility] 08-11-2023 13:31-0500 Systolic blood pressure 100 mm[Hg] Yandy Lue [facility] 06-14-2023 14:00-0500 Body height 157.48 cm Juan José Yamisee Other [facility] Other 06-14-2023 14:00-0500 Body mass index (BMI) [Ratio] 21.32 kg/m2 Juan José Yamisee Other [facility] Other 06-14-2023 14:00-0500 Body weight 52.89 kg Juan José Ball Other [facility] Other 06-14-2023 14:00-0500 Diastolic blood pressure 85 mm[Hg] Juan José Ball Other [facility] Other 06-14-2023 14:00-0500 Respiratory rate 12 /min Juan José Ball Other [facility] Other 06-14-2023 14:00-0500 Systolic blood pressure 130 mm[Hg] Juan José Ball Other [facility] Other 03-18-2023 13:30-0400 Body height 157.48 cm Juan José Ball Other [facility] Other 03-18-2023 13:30-0400 Body mass index (BMI) [Ratio] 21.29 kg/m2 Juan José Ball Other [facility] Other 03-18-2023 13:30-0400 Body weight 52.8 kg Juan José Ball Other [facility] Other 03-18-2023 13:30-0400 Diastolic blood pressure 83 mm[Hg] Juan José Ball Other [facility] Other 03-18-2023 13:30-0400 Respiratory rate 12 /min Juan José Ball Other [facility] Other 03-18-2023 13:30-0400 Systolic blood pressure 147 mm[Hg] Juan José Ball Other [facility] Other 01-19-2023 11:15-0400 Heart rate 70 /min Yandy Jaquezaleisha [facility] 11-16-2022 14:30-0400 Body height 157.48 cm Juan José Ball Other [facility] Other 11-16-2022 14:30-0400 Body mass index (BMI) [Ratio] 22.06 kg/m2 Juan José Ball Other [facility] Other 11-16-2022 14:30-0400 Body weight 54.7 kg Juan José Ball Other [facility] Other 11-16-2022 14:30-0400 Diastolic blood pressure 78 mm[Hg] Juan José Ball Other [facility] Other 11-16-2022 14:30-0400 Respiratory rate 12 /min Juan José Ball Other [facility] Other 11-16-2022 14:30-0400 Systolic blood pressure 138 mm[Hg] Juan José Ball Other [facility] Other 11-23-2021 13:34-0400 Blood Pressure Location Mj Mendenhall Jr. [facility] 11-23-2021 13:34-0400 Diastolic blood pressure 98 mm[Hg] Mj Mendenhall Jr. [facility] 11-23-2021 13:34-0400 Heart rate 67 /min Mj Mendenhall Jr. [facility] 11-23-2021 13:34-0400 Systolic blood pressure 150 mm[Hg] Mj Mendenhall Jr. [facility] Encounters Encounter Date Encounter Type Care Provider Facility Start: 09-25-2024 End: 09-25-2024 [facility] Start: 08-14-2024 End: 08-14-2024 ambulatory [facility] Start: 06-15-2024 End: 06-15-2024 ambulatory [facility] Work Phone: Start: 06-15-2024 End: 06-15-2024 Patient encounter procedure [facility] Work Phone: Start: 06-07-2024 Non-patient / Non-visit [facility] Work Phone: Start: 03-30-2024 End: 03-30-2024 ambulatory [facility] Work Phone: Start: 03-30-2024 End: 03-30-2024 Patient encounter procedure [facility] Work Phone: Start: 03-19-2024 End: 03-19-2024 ambulatory [facility] Start: 02-14-2024 End: 02-14-2024 ambulatory [facility] Start: 09-02-2023 End: 09-02-2023 ambulatory Juan José Arce Other [facility] Other Start: 09-02-2023 Nursing evaluation o f patient and report Juan José Arce [facility] Start: 08-11-2023 End: 08-11-2023 ambulatory Yandy Ragsdale Facility:[facility] Start: 08-11-2023 End: 08-11-2023 Patient encounter procedure Yandy Ragsdale [facility] Start: 07-04-2023 End: 07-04-2023 ambulatory Juan José Claude Other [facility] Other Start: 07-04-2023 Telephone encounter Juan José Arce [facility] Start: 06-30-2023 End: 06-30-2023 ambulatory Juan José Claude Other [facility] Other Start: 06-30-2023 Telephone encounter Juan José Arce [facility] Start: 06-14-2023 End: 06-14-2023 ambulatory Juan José Arce Other [facility] Other Start: 06-14-2023 Patient encounter procedure Juan José Arce [facility] Start: 05-06-2023 End: 05-06-2023 ambulatory Juan José Arce Other [facility] Other Start: 05-06-2023 Telephone encounter Juan José Arce [facility] Start: 05-04-2023 End: 05-04-2023 ambulatory Juan José Arce Other [facility] Other Start: 05-04-2023 Office outpatient vi sit 15 minutes Juan José Arce [facility] Start: 03-18-2023 End: 03-18-2023 ambulatory Juan José Claude Other [facility] Other Start: 03-18-2023 Office outpatient vi sit 25 minutes Juan José Arce [facility] Start: 01-31-2023 End: 01-31-2023 ambulatory Juan José Claude Other [facility] Other Start: 01-31-2023 Telephone encounter Juan José Arce [facility] Start: 01-19-2023 End: 01-19-2023 Patient encounter procedure Yandy Ragsdale [facility] Start: 12-07-2022 End: 12-07-2022 ambulatory Juan José Arce Other [facility] Other Start: 12-07-2022 Telephone encounter Juan José Arce [facility] Start: 12-03-2022 End: 12-04-[address] JUAN JOSÉ ARCE Facility: Start: 11-16-2022 End: 11-16-2022 ambulatory Juan José Arce Other [facility] Other Start: 11-16-2022 Office outpatient vi sit 25 minutes Juan José Arce [facility] Start: 07-31-2022 End: 07-31-[address] JUAN JOSÉ ARCE Facility:[facility] Start: 06-04-[address] JUAN JOSÉ ARCE Facili ty:[facility] Start: 05-31-2022 End: 06-01-[address] JUAN JOSÉ ARCE Facility:[facility] Start: 11-23-2021 End: 11-23-2021 Patient encounter procedure Mj Mendenhall Jr. [facility] Start: 05-10-2017 End: 05-11-2017 Patient encounter procedure JUAN JOSÉ ARCE Facility:[facility] Procedures Date Procedure Procedure Detail Performing Clinician Start: 08-11-2023 Transurethral cystoscopy Yandy Jn Start: 11-23-2021 Cystoscopy Mj raygoza Jr. Start: 01-05-2021 Cystoscopy Mj raygoza Jr. Start: 01-02-2016 Cysto/Lt stent removal Mj Mendenhall Jr. Start: 12-17-2015 Cysto, Lt RG, TURBT, Lt stent Mj Mendenhall Jr. 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 Start: 06-24-2014 Nephroureterectomy Li y Lue Start: 03-20-2014 Cysto, Rt RG, Ureter oscopy, Bladder bx, Rt Stent Mj Mendenhall Jr. Start: 05-02-2013 Cysto, Random Bladde r BX & Fulguration Mj Mendenhall Jr. Start: 02-14-2013 Cysto/TURBT, Brady B ladder bx & fulguration Mj Mendenhall [...] lic 2000 panel - Serum or Plasma [facility] enter XR Chest 2 Views [facility] Immunizations Immunization Date Immunization Notes Care Provider Antonio chance 06-15-2024 influenza, high dose seasonal, preservative-free [facility] 06-14-2023 influenza, high dose seasonal, preservative-free Juan José Arce Other [facility] Other 06-14-2023 influenza virus vaccine, unspecified formulation [facility] 05-18-2022 influenza virus vaccine, split virus (incl. purified surface antigen) Juan José Arce Other [facility] Other 05-18-2022 influenza virus vaccine, unspecified formulation Yandy Jn [facility] 09-29-2021 SARS-CoV-2 (COVID-19 ) mRNA-1373 vaccine Mj Mendenhall Jr. [facility] 05-05-2021 influenza virus vaccine, split virus (incl. purified surface antigen) Juan José Arce Other [facility] Other 05-05-2021 influenza virus vaccine, unspecified formulation [facility] 09-29-2020 SARS-CoV-2 (COVID-19 ) mRNA-1273 vaccine Mj Mendenhall [facility] 09-01-2020 SARS-CoV-2 (COVID-19 ) mRNA-1273 vaccine Mj Abdirashid Lundberg [facility] 05-19-2020 influenza virus vaccine, split virus (incl. purified surface antigen) Juan José Arce Other [facility] Other 05-19-2020 influenza virus vaccine, unspecified formulation [facility] 05-21-2019 influenza virus vaccine, split virus (incl. purified surface antigen) Juan José Arce Other [facility] Other 05-21-2019 influenza virus vaccine, unspecified formulation [facility] 05-02-2018 influenza virus vaccine, split virus (incl. purified surface antigen) Juan José Arce Other [facility] Other 05-02-2018 influenza virus vaccine, unspecified formulation Yandy Lue [facility] 05-16-2017 influenza virus vaccine, split virus (incl. purified surface antigen) Juan José Arce Other [facility] Other 05-16-2017 influenza virus vaccine, unspecified formulation Yandy Lue [facility] 05-21-2016 influenza virus vaccine, split virus (incl. purified surface antigen) Juan José Arce Other [facility] Other 05-21-2016 influenza virus vaccine, unspecified formulation Yandy Helton [facility] 05-13-2015 influenza virus vaccine, split virus (incl. purified surface antigen) Juan José Arce Other [facility] Other 05-13-2015 influenza virus vaccine, unspecified formulation [facility] 05-13-2015 pneumococcal conjuga te vaccine, 13 valent Juan José Arce Other [facility] 05-24-2014 tetanus and diphther ia toxoids, adsorbed, preservative free, for adult use (5 Lf of tetanus toxoid and 2 Lf of diphtheria toxoid) Juan José Arce Other [facility] 05-21-2013 pneumococcal polysaccharide vaccine, 23 valent Juan José Arce Other [facility] 05-21-2013 tetanus and diphther ia toxoids, adsorbed, preservative free, for adult use (5 Lf of tetanus toxoid and 2 Lf of diphtheria toxoid) Juan José Arce Other [facility] Payers Date Payer Category Payer Medicare [id number] 2021 [employer] others) [id number] 2016 [employer] others) [id number] 1959 [employer] ( and others) [id number] 1959 Private Health Insurance [id number] 1959 Self-pay 1940 Unknown [id number] 1940 Unknown [id number] 1940 Unknown [id number] 1940 Unknown [id number] 1940 Unknown [id number] 1940 Unknown [id number] Social History Date Type Detail Facility Start: 11-23-2021 End: 08-11-2023 Tobacco smoking status Never smoked tobacco (finding) [facility] Tobacco smoking status Never [facility] Sex Assigned At Female [facility] Start: 1940 Sex Assigned At Female F [facility] Tobacco smoking stat [facility] Unknown if ever smoked [facility] Work Phone: Start: 06-15-2024 Sex Female (finding) [facility] Functional Status Date Assessment Result Facility 08-11-2023 Functional Status N/A [facility] 01-19-2023 Functional Status N/A [facility] Clinical Notes 11-23-2021 to 09-25-2024 Note Date & Type Note Facility 09-25-2024 Note [facility] Consult Note Reason for visit: follow up atrial flutter, PAF, hypertension, and device check 09/25/24 Patient here for 6 mo follow up paroxysmal atrial flutter/afib, bradycardia arrhythmia, and valve disorder. Hasn't had echo since Aug 2023. Denies chest pain and palpitations. Device check reveals few episodes of high atrial rate that lasted for approximately 10 to 20 seconds 07/18/23: She is here for 6-month follow-up [...] chest pain. HPI: Rebecca Hays is a 84 y.o. year old with past medical history [...] flutter or fib EKG 11/17/2018 a sensed [place] conduction 05/10/2017 AV sequential pacing 12/03/2016 shows sinus rhythm 12/08/2015 sinus rhythm 05/12/2015 shows sinus rhythm Device check that was performed on 12/02/2020 reveals a [employer] Accolade device that was implanted on [...] (CMS/HCC) Cancer (CMS/HCC) CHF (congestive heart failure) ([facility]) Chronic kidney disease Conduction disorder of the [...] Connections: Not on file Intimate Partner Violence: Unknown (09/22/2023) DC Safety & Environment Fear of Current or Ex-Partner: Not on file Emotionally Abused: Not on file Physically Abused: Not on file Sexually Abused: Not on file Physically or Sexually Abused: Not on file Depression: Not on file Housing Stability: Not on file Utilities: Not on file Health Literacy: Not on file Allergies: Allergies Allergen Reactions Iodine Other Povidone-Iodine Other Sulfa (Sulfonamide Antibiotics) Other Weight: 49.4kg Visit Vitals Pulse 71 Ht 1.575 m (5' 2 ) Wt 49.4 kg (109 lb) SpO2 94% BMI 19.94 kg/m??? Smoking Status Never BSA 1.47 m??? Meds: Current Outpatient Medications on File [...] No current facility-administered medications on file prior (more content not included)... [facility] 03-19-2024 Note [place] Cardiology - [facility] Subjective Rebecca Hays is a 84 [...] interval 449 ms EKG: Echo: 08/02/2023 at [facility] Stress test: 12/15/2015 Carotid Doppler study 06/17/2023 Cardiac cath: Event Monitor: Cardiac MRI: CX ray: Assessment/Plan Paroxysmal atrial flutter with degeneration at times to A-fib, maintaining normal sinu (more content not included)... [facility] 09-02-2023 Evaluation note Encounter Date Diagnosis Assessment Notes Sep, Dysuria (ICD-10 - R30.0) [facility] Other 12-05-2023 Hospital Discharge instructions Follow Up Care 07/05/2023 15:39:04 With:Jn MCCRARY, Yandy Martínez URMaya, URO Address: When:Within 1 Year(s) Comments:w/Cysto/Cytology [facility] 12-04-2023 Evaluation note* Encounter Date Diagnosis Assessment Notes Treatment Notes Treatment Clinical Notes Jul, Paroxysmal atrial fibrillation (ICD-10 - I48.0) [facility] Other 11-30-2023 Evaluation note* Encounter Date Diagnosis Assessment Notes Treatment Notes Treatment Clinical Notes Jun, Paroxysmal atrial fibrillation (ICD-10 - I48.0) [place] [facility] Other 11-14-2023 Evaluation note* Encounter Date Diagnosis [...] are maintaining regular scheduled appts with their water trainer. No bleeding complications Jun, Mild persistent asthma, uncomplicated (ICD-10 - J45.30) No ER visits for AE. Continue ARTUOR as needed for cough Jun, Age-related osteoporosis without current pathological fracture (ICD-10 - M81.0) Ca and Vit D supplements. Weight bearing exercise. On medication holiday, recommend checking DEXA Jun, Bruit of right carotid artery (ICD-10 - R09.89) Continue primary prevention measures. Check carotid US Jun, Screening mammography declined (ICD-10 - Z53.20) Instructed patient on monthly SBE and yearly mammograms. [facility] Other 10-04-2023 Evaluation note* Encounter Date Diagnosis [...] in public places for complete 10 days [facility] Other 08-18-2023 Evaluation note* Encounter Date Diagnosis [...] are maintaining regular scheduled appts with their water trainer. Mar, Elevated cholesterol (ICD-10 - E78.00) Instructed [...] pacemaker (ICD-10 - Z95.0) Continue PM checks. [facility] Other 07-03-2023 Evaluation note* Encounter Date Diagnosis Assessment Notes Treatment Notes Treatment Clinical Notes Jan, Primary hypertension (ICD-10 - I10) [facility] Other 06-21-2023 Hospital Discharge instructions Patient Education [...] if anything looks unusual. Women with a hdmpkt-ovad-grhnno risk for skin cancer may want to see a dinkey skinner (commissions coordinator) for an annual body check. What are the benefits of screening? Cancer screening is done to look for cancer in the very early stages, before it spreads and becomesharder to treat and before you would start to notice symptoms. Finding cancer early improves the chances of successful treatment. It may save your life. Where to find more information [employer] [employer]: www.cancer.org Centers for Disease Control and Prevention: www.cdc.gov National Cancer [place]: www.cancer.gov U.S. Department of Health and Human [...] provider. Document Revised: 12/14/2021 Document Reviewed: 06/13/2020 [employer] Patient Education 2022 bLife. Follow Up Care 11/03/2022 13:49:34 With:Jn MCCRARY, MACY Glass, URO Address: [address], [place] [address] [phone] When:Within 3 Month(s) Comments:CTU [facility] 04-18-2023 Evaluation note* Encounter Date Diagnosis Assessment [...] are maintaining regular scheduled appts with their water trainer. Oct, Elevated cholesterol (ICD-10 - E78.00) Diet [...] High risk medication use (ICD-10 - Z79.899) [facility] Other 04-25-2022 Hospital Discharge instructions Patient Education [...] including vitamins, herbs, eye drops, creams, and svpo-ogc-phnzxiu medicines. Any problems you or family members [...] provider tells you to take them. ?Taking ipzr-itj-cpufvcl medicines, vitamins, herbs, and supplements. Follow instructions [...] Follow these instructions at home: Medicines Take fuft-vuy-jdjacmz and prescription medicines only as told by [...] 07/15/2001 Document Revised: 07/10/2019 Document Reviewed: 07/10/2019 [employer] Patient Education 2020 bLife. Follow Up Care 11/03/2021 15:16:19 With:Abdirashid Lundberg MD, Mj Trejo, URO Address: [facility] [address], [place] [address]- When:11/23/2022 Comments:Cysto [facility] 04-25-2022 Evaluation + Plan note Diagnostic Tests Pending * Urine Cytology ([facility]) 11/23/21 [facility] Evaluation noteNo InformationNort [facility] Other Evaluation noteNo assessment information available [facility] Work Phone: Hisanmm general Narrative - Reported* Type Description Date [...] W/ BLADDER Hospitalization History SEE SURGICAL HX [facility] Other Histulk general Narrative - Reported* Type Description Date Surgical History CARDIAC PACEMAKER/DEFIBRILLATOR 2010 Surgical History APPENDECTOMY Surgical History CYSTO W/ BLADDER Hospitalization History SEE SURGICAL [facility] Other Hisldle general Narrative - Reported* Type Description Date [...] CYSTO W/ BLADDER Hospitalization History SEE SURGICAL [facility] Other Hospital course Narrative No data available for this section [facility] Progress note No data available for this section [facility] Summary Purpose Family History No Family History [...] and content) DATE CREATED AUTHOR 07/03/2020 [facility] DATE CREATED AUTHOR AUTHOR'S ORGANIZ ATION [facility] [facility] DATE CREATED AUTHOR AUTHOR'S ORGANIZ ATION 08/25/2024 [facility] DATE CREATED AUTHOR AUTHOR'S ORGANIZ ATION 09/27/2024 [facility] REASON FOR VISIT (unrecogniz ed section and content) 6 MONTH FOLLOW UPLab Results refill4 month Follow upCOVID-Positivemucus chest congestionWellnessRefillrefillUA- Burning Patient Care team informatio n (unrecognized section and content) Team Status: Active Member Role Status Dates Juan José Arce DO Primary Care Provider Active Team Status: Inactive Member Role Status Dates Juan José Arce DO Primary Care Provide r, Attending Provider Active Start: March 30, 2024 End: March 30, 2024 Team Status: Active Member Role Status Dates Juan José Arce DO Primary Care Provide r, Attending Provider Active Start: June 07, 2024 Team Status: Inactive Member Role Status Dates Juan José Arce DO Primary Care Provide r, Attending Provider [...] BE BASED ON THE PRIMARY CLINICAL RECORDS. [facility] [employer] [facility]. provides no warranty or guarantee of the accuracy or completeness of information in this document.
--- NOTE | 2024-10-11 14:00 | CA_ITS ---
Patient Name: TESSIE EL MR#: [id number] : 1940 Exam Date: 10/11/2024 Ordering Doctor: JUAN DURAND ECHOCARDIOGRAM REPORT PROCEDURE: CA ECHO DOPPLER COMPLETE INDICATIONS: Mitral valve and aortic valve insufficiency, pacemaker COMPARISON: None. DESCRIPTION: COMPLETE ECHOCARDIOGRAM Real-time transthoracic echocardiography with 2D, M-mode, spectral and color flow Doppler performed. QUALITY: Technical quality was good. LEFT VENTRICLE: Normal chamber size. Normal left ventricular wall thickness. Normal systolic function. LV EF: Normal left ventricular ejection fraction, (>55%). DIASTOLIC: Normal diastolic function. ATRIAL SEPTUM: Visually appears intact. LEFT ATRIUM: Normal chamber size. RIGHT ATRIUM: Normal chamber size. RIGHT VENTRICLE: Normal chamber size. Normal systolic function. Pacer wire present. TRICUSPID VALVE: Normal mobility and thickness. No stenosis with mild regurgitation. No evidence of pulmonary hypertension. RVSP 32 mmHg MITRAL VALVE: Normal mobility and thickness. No evidence of mitral valve stenosis. There is no mitral annular calcification. Mild mitral regurgitation. AORTIC VALVE: Normal trileaflet appearance. Thickened aortic valve. Normal leaflet mobility. No evidence of aortic valve stenosis. Mild aortic regurgitation. AORTIC ROOT: Normal diameter and appearance, measuring 3.2 cm. Ascending aorta is normal in size (3.5 cm). PULMONIC VALVE: Normal thickness and mobility. No stenosis. Trivial regurgitation. PERICARDIUM: No evidence of pericardial effusion. IVC: Collapses with inspirations. PLEURA: CONCLUSION: 1. Normal ventricular size and function. LVEF is 55 to 60%. 2. Mild mitral, tricuspid and aortic regurgitation. 3. Normal right-sided pressures. 4. No pericardial effusion. Adult Echocardiography Procedure Report Left Ventricle LVEDD (3.7 - 5.6 cm): 3.73 cm LVESD (2.2 - 4.0 cm): 3.13 cm LVIVS thickness (0.6 - 1.2 cm): 0.77 cm LVPW thickness (0.5 - 1.0 cm): 0.86 cm e': 0.09 m/s E - e': 3.36 LVOT Max Gradient: 1.09 mm[Hg] LVOT Area (cm2): 0.52 m/s Peak Velocity (LVOT): 0.52 m/s LVOT Diameter 2.20 cm Left Atrium Left Atrium Systolic Dimension: 2.78 cm Mitral Valve MV E to A Ratio: 0.52 Mitral Valve A-Wave Peak Velocity: 0.56 m/s Mitral Valve E-Wave Peak Velocity: 0.29 m/s Right Ventricle Aorta AO Root Diam: 3.17 cm Ascending Ao Diam: 3.39 cm Aortic Valve AoV Area (Peak Homero): 2.97 cm2, 2.97 cm2 Peak Velocity(Antegrade Flow): 0.67 m/s Peak Gradient(Antegrade Flow): 1.80 mm[Hg] Tricuspid Valve Peak Velocity (Regurgitant Flow): 2.69 m/s Pulmonic Valve Mean Gradient: 1.14 mm[Hg] Mean Velocity: 0.51 m/s Peak Velocity: 0.75 m/s, 0.78 m/s Peak Gradient: 2.45 mm[Hg], 2.27 mm[Hg] Right Atrium Right Atrium Systolic Pressure: 24.25 ml, 24.25 ml Dictated by: Eran Doss M.D. on 10/11/2024 at 20:17 Approved by: Eran Doss M.D. on 10/11/2024 at 20:20
== END 2024-10-11 13:08 | disposition home or self-care (01) ==
LOC: CARD 13:08
PROVIDERS: PCP Internal Medicine; Visit Provider Internal Medicine Cardiovascular Disease
DX: I34.0 Nonrheumatic mitral (valve) insufficiency (principal)
CPT/HCPCS: 93306

== ENCOUNTER 2025-01-10 08:56 | Outpatient (OUT) | payer MEDICARE, OTHER, SELFPAY ==
--- OUTSIDE RECORDS SUMMARY | 2025-01-10 09:01 | XMS_ITS | CCD ---
Author Organization [facility] Care Team Providers Care Accounts Payable Specialist Name Role Phone JUAN JOSÉ ARCE Referring Unavailable CLAUDE, JUAN JOSÉ Primary Care Unavailable EARL BAUTISTA Attending Unavailable EARL BAUTISTA Admitting Unavailable CLAUDE, JUAN JOSÉ Primary Care Physician [phone] Claude, Juan José Unavailable CLAUDE, DR FALL [...] Ragsdale Attending Unavailable Yandy Ragsdale Admitting Unavailable SAVANAH RASCON Attending Unavailable JUAN URRUTIA Referring Unavailable LADARIUS, JUAN Referring Unavailable LADARIUS, JUAN Attending Unavailable LADARIUS, JUAN Referring Unavailable Allergies Allergy Classification Reported Allergen(s) Allergy Type Date of Onset Reaction(s) Facility (1 source) Povidone-Iodine Drug Allergy 05-23-20 12 [facility] Repository (6 sources) Sulfonamides (Antibiotic); Translations: [SULFA (SULFONAMIDE ANTIBIOTICS)] Drug allergy (disorder) 12-25-19 13 Unknown Reaction [facility] Repository (17 sources) Iodine; Translations: [iodine] Drug Allergy 07-18-20 23 Blister (morphologic abnormality) [facility] (4 sources) Sulfonamides (Antibiotic); Translations: [sulfa drugs] Drug allergy [facility] (10 sources) Albuterol / Ipratropium Drug Allergy Unknown [facility] [employer] Other (12 sources) montelukast Drug Allergy 12-13-19 24 Unknown, Unknown Reaction [facility] (10 sources) Sulfamethoxazole / Trimethoprim Drug Allergy Unknown [facility] [employer] Other (10 sources) Substance with sulfonamide structure and antibacterial mechanism of action (substance) Drug allergy Unknown [facility] [employer] Other (2 sources) Iodine Drug Allergy 01-13-20 13 [facility] Repository (2 sources) Albuterol Drug Allergy 12-13-[address] [facility] (2 sources) Ipratropium Drug Allergy 12-13-[address] [facility] (2 sources) Sulfamethoxazole Drug Allergy 12-13-[address] [facility] (2 sources) Trimethoprim Drug Allergy 12-13-[address] 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] Onset: 12-09-2022 Episodic Other [...] Onset: 03-19-2024 Episodic Other aftercare (1 source) 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) use of aspirin; Translations: [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 USE OF ASPIRIN] Onset: 08-03-2022 Episodic [...] Range Facility Office Visiton 09-25-2024 Follow-up visit [id number] Rebecca Hays 1940 F Date Provider Department Center 09/25/2024 JUAN ISLAS KATEY [facility] Family History Problem Relation Age of Onset No Known Problems Mother No Known Problems Father Family Status - Relation Status Age at Mother Father Level of Service:73581 SD OFFICE/OUTPATIENT ESTABLISHED LOW MDM 20 MIN Normal [facility] Laboratory - Chemistry and C hemistry - challengeon 03-30-2024 Bilirubin Ql (U) Negative [facility] Glucose (U) [Mass/Vol] Negative [facility] Ketones Ql (U) Negative [facility] pH (U) 5 [pH] [facility] Specific gravity (U) [Rel density] 1.010 [facility] Urobilinogen (U) [Mass/Vol] 0.2 mg/dL [facility] Laboratory - Specimen inform ationon 03-30-2024 Appearance (U) cloudy [facility] Color (U) darkyellow [facility] Laboratory - Urinalysison Leukocyte esterase Test strip Ql (U) ++ [facility] Nitrite Ql (U) Negative [facility] Protein Ql (U) ++ [facility] No Panel Informationon 03-30 Urine Occult Blood +++ [facility] 29on 03-19-2024 29 Addended by: SAVANAH RASCON on: 03/19/2024 02:47 PM Modules accepted: Orders Normal [facility] Office Visiton 03-19-2024 Follow-up visit [id number] Rebecca Hays 1940 F Date Provider Department Center 03/19/2024 [id number] RASCON CARD Rajan Seo Family History Problem Relation Age of Onset No Known Problems Mother No Known Problems Father Family Status - Relation Status Age at Mother Father Level of Service:86688 SD OFFICE/OUTPATIENT ESTABLISHED MOD MDM 30 MIN Reason for Visit and Comments: Atrial Fibrillation [80] Follow-up [638592] - Atrial fibrillation Normal [facility] Urinalysis - DIPSTICKon 02-0 Appearance (U) cloudy [facility] Other Bilirubin Ql (U) Negative [employer] Other Color (U) yellow [employer] Other Glucose Ql (U) Negative [facility] Other Hemoglobin Ql (U) ++ [employer] Other Ketones Ql (U) Negative [facility] Other Leukocyte esterase Test strip Ql (U) 125++ [employer] Other Nitrite Ql (U) Negative [facility] Other pH (U) 7.5 [pH] [employer] Other Protein Ql (U) 15 [facility] Other Specific gravity (U) [Rel density] 1.005 [employer] Other Urobilinogen (U) [Mass/Vol] 0.2 mg/dL [facility] [employer] Other Urinalysis - DIPSTICK [facility] [employer] Other CBC AUTO DIFFon 12-03-2022 BASO # 0.1 103/ul Normal 0.0-0.1 [facility] Comment on above: Performed By: #### C BC #### [facility] [address] [place] [address] Dr. Radha Pacheco Basophils/100 WBC (Bld) 1.0 % Normal 0.2-2.0 [facility] Comment on above: Performed By: #### C BC #### [facility] [address] [place] [address] Dr. Radha Pacheco EO # 0.2 103/ul Normal 0.0-0.7 [facility] Comment on above: Performed By: #### C BC #### [facility] [address] [place] [address] Dr. Radha Pacheco Eosinophils/100 WBC (Bld) 2.7 % Normal 0.9-7.0 [facility] Comment on above: Performed By: #### C BC #### [facility] [address] [place] [address] Dr. Radha Pacheco Erythrocyte distribution width (RBC) [Ratio] 13.2 % Normal 11.0-15.0 [facility] Comment on above: Performed By: #### C BC #### [facility] [address] [place] [address] Dr. Radha Pacheco Hematocrit (Bld) [Volume fraction] 43.7 % Normal 36.0-48.0 [facility] Comment on above: Performed By: #### C BC #### [facility] [address] [place] [address] Dr. Radha Pacheco Hemoglobin (Bld) [Mass/Vol] 13.8 g/dL Normal 12.0-16.0 [facility] Comment on above: Performed By: #### C BC #### [facility] [address] [place] [address] Dr. Radha Pacheco IG # 0.01 10e3/ul Normal 0.00-0.03 [facility] Comment on above: Performed By: #### C BC #### [facility] [address] [place] [address] Dr. Radha Pacheco IG % 0.1 % Normal 0.0-0.5 [facility] Comment on above: Performed By: #### C BC #### [facility] [address] [place] [address] Dr. Radha Pacheco LYMPH # 2.6 103/ul Normal 1.2-3.8 [facility] Comment on above: Performed By: #### C BC #### [facility] [address] [place] [address] Dr. Radha Pacheco Lymphocytes/100 WBC (Bld) 37.3 % Normal 20.5-60.0 [facility] Comment on above: Performed By: #### C BC #### [facility] [address] [place] [address] Dr. Radha Pacheco MANUAL DIFF REQ NO Normal [facility] Comment on above: Performed By: #### C BC #### [facility] [address] [place] [address] Dr. Radha Pacheco MCH (RBC) [Entitic mass] 28.5 pg Normal 26.7-34.0 [facility] Comment on above: Performed By: #### C BC #### [facility] [address] [place] [address] Dr. Radha Pacheco MCHC (RBC) [Mass/Vol] 31.6 g/dL Normal 29.9-35.2 [facility] Comment on above: Performed By: #### C BC #### [facility] [address] [place] [address] Dr. Radha Pacheco MCV (RBC) [Entitic vol] 90.3 fL Normal 81.0-99.0 [facility] Comment on above: Performed By: #### C BC #### [facility] [address] [place] [address] Dr. Radha Pacheco MONO # 0.4 103/ul Normal 0.3-0.8 [facility] Comment on above: Performed By: #### C BC #### [facility] [address] [place] [address] Dr. Radha Pacheco Monocytes/100 WBC (Bld) 6.2 % Normal 1.7-12.0 [facility] Comment on above: Performed By: #### C BC #### [facility] [address] [place] [address] Dr. Radha Pacheco NEUT # 3.6 103/ul Normal 1.4-6.5 [facility] Comment on above: Performed By: #### C BC #### [facility] [address] [place] [address] Dr. Radha Pacheco Neutrophils/100 WBC (Bld) 52.7 % Normal 43.0-75.0 [facility] Comment on above: Performed By: #### C BC #### [facility] [address] [place] [address] Dr. Radha Pacheco Platelet mean volume (Bld) [Entitic vol] 9.7 fL Normal 9.5-13.5 [facility] Comment on above: Performed By: #### C BC #### [facility] [address] [place] [address] Dr. Radha Pacheco PLT 240 103/ul Normal 150-450 [facility] Comment on above: Performed By: #### C BC #### [facility] [address] [place] [address] Dr. Radha Pacheco RBC 4.84 106/ul Normal 4.20-5.40 [facility] Comment on above: Performed By: #### C BC #### [facility] [address] [place] [address] Dr. Radha Pacheco WBC 6.9 103/ul Normal 4.0-11.0 [facility] Comment on above: Performed By: #### C BC #### [facility] [address] [place] [address] Dr. Radha Pacheco LIPID PROFILEon 12-03-2022 CHOL-HDL RATIO NORM SEE BELOW Normal [facility] Comment on above: Result Comment: 3.3 - 4.4 LOW RISK 4.4 - 7.1 AVERAGE RISK 7.1 - 11.0 MODERATE RISK >11.0 HIGH RISK Performed By: #### B MP, LIPID, ALT #### [facility] [address] [address] [address] Radha Pacheco Cholesterol [Mass/Vol] 145 mg/dL Normal <=200 [facility] Comment on above: Performed By: #### B MP, LIPID, ALT #### [facility] [address] [address] [address] Radha Pacheco Cholesterol in HDL [Mass/Vol] 71 mg/dL Critically high 40-60 [facility] Comment on above: Performed By: #### B MP, LIPID, ALT #### [facility] [address] [address] [address] Radha Pacheco Cholesterol in LDL [Mass/Vol] 56.8 mg/dL Normal [facility] Comment on above: Performed By: #### B MP, LIPID, ALT #### [facility] [address] [address] [address] Radha Pacheco Cholesterol.total/ Cholesterol in HDL [Mass ratio] 2.0 {ratio} Normal [facility] Comment on above: Performed By: #### B MP, LIPID, ALT #### [facility] [address] [address] [address] Radha Pacheco HDL NORMAL > or = 60 mg/dl - LOW CARDIOVASCULAR RISK <40 mg/dl - HIGH CARDIOVASCULAR RISK Normal [facility] Comment on above: Performed By: #### B MP, LIPID, ALT #### [facility] [address] [address] [address] Radha Pacheco LDL CALC NORMAL SEE BELOW Normal [facility] Comment on above: Result Comment: <100 mg/dl OPTIMAL 100 - 129 mg/dl NEAR OR ABOVE OPTIMAL 130 - 159 mg/dl BORDERLINE HIGH 160 - 189 mg/dl HIGH >190 mg/dl VERY HIGH Performed By: #### B MP, LIPID, ALT #### [facility] [address] [address] [address] Radha Pacheco Triglyceride [Mass/Vol] 86 mg/dL Normal <=150 [facility] Comment on above: Performed By: #### B MP, LIPID, ALT #### [facility] [address] [address] [address] Radha Pacheco VLDL CALC 17.2 mg/dL Normal [facility] Comment on above: Performed By: #### B MP, LIPID, ALT #### [facility] [address] [address] [address] Radha Pacheco PROF CHEM 8 (BAS METB)on Anion gap [Moles/Vol] 9.1 mmol/L Normal [facility] Comment on above: Performed By: #### B MP, LIPID, ALT #### [facility] [address] [place] [address] Dr. Radha Pacheco Calcium [Mass/Vol] 10.0 mg/dL Normal 8.5-10.1 [facility] Comment on above: Performed By: #### B MP, LIPID, ALT #### [facility] [address] [place] [address] Dr. Radha Pacheco Chloride [Moles/Vol] 103 mmol/L Normal 98-107 [facility] Comment on above: Performed By: #### B MP, LIPID, ALT #### [facility] [address] [place] [address] Dr. Radha Pacheco CO2 [Moles/Vol] 32.2 mmol/L Critically high 21.0-32.0 [facility] Comment on above: Performed By: #### B MP, LIPID, ALT #### [facility] [address] [place] [address] Dr. Radha Pacehco Creatinine [Mass/Vol] 0.97 mg/dL Normal 0.55-1.02 [facility] Comment on above: Performed By: #### B MP, LIPID, ALT #### [facility] [address] [place] [address] Dr. Radha Pacheco EGFR-AF BRITISH >60 Normal >=60 [facility] Comment on above: Performed By: #### B MP, LIPID, ALT #### [facility] [address] [place] [address] Dr. Radha Pacheco EGFR-NON AF BRITISH 55 mL/min/1.73m2 Critically low >=60 [facility] Comment on above: Performed By: #### B MP, LIPID, ALT #### [facility] [address] [address] [address] Radha Pacheco Glucose [Mass/Vol] 108 mg/dL Critically high 74-106 [facility] Comment on above: Performed By: #### B MP, LIPID, ALT #### [facility] [address] [address] [address] Radha Pacheco Potassium [Moles/Vol] 4.3 mmol/L Normal 3.5-5.1 [facility] Comment on above: Performed By: #### B MP, LIPID, ALT #### [facility] [address] [place] [address] Dr. Radha Pacheco Sodium [Moles/Vol] 140 mmol/L Normal 136-145 [facility] Comment on above: Performed By: #### B MP, LIPID, ALT #### [facility] [address] [address] [address] Radha Pacheco Urea nitrogen [Mass/Vol] 20.0 mg/dL Critically high 7.0-18.0 [facility] Comment on above: Performed By: #### B MP, LIPID, ALT #### [facility] [address] [address] [address] Radha Pacheco Urea nitrogen/Creatinin e [Mass ratio] 20.6 mg/mg Normal [facility] Comment on above: Performed By: #### B MP, LIPID, ALT #### [facility] [address] [address] [address] Radha Pacheco SGPTon 12-03-2022 ALT [Catalytic activity/Vol] 25 U/L Normal 14-59 [facility] Comment on above: Performed By: #### B MP, LIPID, ALT #### [facility] [address] [address] [address] Radha Pacheco UA RANDOM W/MICROSCOPICon BACTERIA TRACE Abnormal NONE SEEN [facility] Comment on above: Performed By: #### U AMIC #### [facility] [address] [address] [address] Radha Pacheco Bilirubin Ql (U) Negative Normal NEGATIVE [facility] Comment on above: Performed By: #### U AMIC #### [facility] [address] [address] [address] Radha Pacheco CAST NONE SEEN Normal NONE SEEN [facility] Comment on above: Performed By: #### U AMIC #### [facility] [address] [address] [address] Radha Pacheco Clarity (U) CLEAR Normal CLEAR [facility] Comment on above: Performed By: #### U AMIC #### [facility] [address] [address] [address] Radha Pacheco Color (U) LT. YELLOW Normal YELLOW [facility] Comment on above: Performed By: #### U AMIC #### [facility] [address] [address] [address] Radha Pacheco Crystals LM Nom (Urine sed) NONE SEEN Normal NONE SEEN [facility] Comment on above: Performed By: #### U AMIC #### [facility] [address] [address] [address] Radha Pacheco Epithelial cells LM Ql (Urine sed) FEW Abnormal NONE SEEN /RARE [facility] Comment on above: Performed By: #### U AMIC #### [facility] [address] [address] [address] Radha Pacheco Glucose Ql (U) Negative Normal NEGATIVE [facility] Comment on above: Performed By: #### U AMIC #### [facility] [address] [address] [address] Radha Pacheco Hemoglobin Ql (U) Negative Normal NEGATIVE [facility] Comment on above: Performed By: #### U AMIC #### [facility] [address] [place] [address] Dr. Radha Pacheco Ketones Ql (U) Negative Normal NEGATIVE [facility] Comment on above: Performed By: #### U AMIC #### [facility] [address] [address] [address] Radha Pacheco LEUKOCYTES SMALL Abnormal NEGATIVE [facility] Comment on above: Performed By: #### U AMIC #### [facility] [address] [address] [address] Radha Pacheco MUCOUS NONE SEEN Normal NONE SEEN [facility] Comment on above: Performed By: #### U AMIC #### [facility] [address] [address] [address] Radha Pacheco Nitrite Ql (U) Negative Normal NEGATIVE [facility] Comment on above: Performed By: #### U AMIC #### [facility] [address] [address] [address] Radha Pacheco pH (U) 7.5 [pH] Normal 5-9 [facility] Comment on above: Performed By: #### U AMIC #### [facility] [address] [place] [address] Dr. Radha Pacheco RBC NONE SEEN Abnormal 0-2 [facility] Comment on above: Performed By: #### U AMIC #### [facility] [address] [place] [address] Dr. Radha Pacheco SPEC GRAVITY 1.015 Normal 1.005-<=1.025 [facility] Comment on above: Performed By: #### U AMIC #### [facility] [address] [place] [address] Dr. Radha Pacheco UA PROTEIN Negative Normal NEGATIVE/ TRACE [facility] Comment on above: Performed By: #### U AMIC #### [facility] [address] [address] [address] Radha Pacheco Urobilinogen Qn (U) 0.2 {Teodora'U}/dL Normal 0.2 - 1.0 [facility] Comment on above: Performed By: #### U AMIC #### [facility] [address] [place] [address] Dr. Radha Pacheco WBC 2-5 Abnormal NONE SEEN [facility] Comment on above: Performed By: #### U AMIC #### [facility] [address] [place] [address] Dr. Radha Pacheco XR CHEST 1 Von 07-31-2022 XR CHEST 1 V EXAM: XR CHEST 1 V HISTORY: COUGH COMPARISON: 11/20/2021 TECHNIQUE: Single view of the chest. FINDINGS: Left chest cardiac device and leads noted. Unremarkable cardiomediastinal silhouette. No focal consolidation, pleural effusion, pulmonary congestion or pneumothorax. IMPRESSION: No acute findings. Electronically authenticated by: ANTONIO CUADRA Date: 2022-07-31 10:49 Normal [facility] US CAROTID ART BILon 022 US [...] by: SHELLIE PATEL Date: 2022-06-01 06:20 Normal [facility] XR DEXA BONE DENSITYon 05-31 XR [...] by: SHELLIE PATEL Date: 2022-05-31 15:14 Normal [facility] Vital Signs Date Time Vital Sign Value Performing Clinician Facility 06-15-2024 13:50-0500 Body mass index (BMI) [Ratio] 20.5 kg/m2 [facility] 06-15-2024 13:50-0500 Diastolic blood pressure 74 mm[Hg] [facility] 06-15-2024 13:50-0500 Heart rate 63 /min [facility] 06-15-2024 13:50-0500 Systolic blood pressure 121 mm[Hg] [facility] 06-14-2024 07:26-0500 Body height 157.48 cm [facility] 06-14-2024 07:26-0500 Body weight 50.8 kg [facility] 08-11-2023 13:31-0500 Blood Pressure Location Yandy Lue [facility] 08-11-2023 13:31-0500 Diastolic blood pressure 55 mm[Hg] Yandy Lue [facility] 08-11-2023 13:31-0500 Heart rate 106 /min Yandy Lue [facility] 08-11-2023 13:31-0500 Systolic blood pressure 100 mm[Hg] Yandy Lue [facility] 06-14-2023 14:00-0500 Body height 157.48 cm Juan José Ball Other [facility] [employer] Other 06-14-2023 14:00-0500 Body mass index (BMI) [Ratio] 21.32 kg/m2 Juan José Ball Other [facility] [employer] Other 06-14-2023 14:00-0500 Body weight 52.89 kg Juan José Ball Other [facility] [employer] Other 06-14-2023 14:00-0500 Diastolic blood pressure 85 mm[Hg] Juan José Ball Other [employer] Other 06-14-2023 14:00-0500 Respiratory rate 12 /min Juan José Ball Other [employer] Other 06-14-2023 14:00-0500 Systolic blood pressure 130 mm[Hg] Juan José Ball Other [employer] Other 03-18-2023 13:30-0400 Body height 157.48 cm Juan José Ball Other [employer] Other 03-18-2023 13:30-0400 Body mass index (BMI) [Ratio] 21.29 kg/m2 Juan José Ball Other [employer] Other 03-18-2023 13:30-0400 Body weight 52.8 kg Juan José Ball Other [employer] Other 03-18-2023 13:30-0400 Diastolic blood pressure 83 mm[Hg] Juan José Ball Other [employer] Other 03-18-2023 13:30-0400 Respiratory rate 12 /min Juan José Ball Other [employer] Other 03-18-2023 13:30-0400 Systolic blood pressure 147 mm[Hg] Juan José Ball Other [employer] Other 01-19-2023 11:15-0400 Heart rate 70 /min Yandy Jaquezaleisha [facility] 11-16-2022 14:30-0400 Body height 157.48 cm Juan José Ball Other [employer] Other 11-16-2022 14:30-0400 Body mass index (BMI) [Ratio] 22.06 kg/m2 Juan José Ball Other [employer] Other 11-16-2022 14:30-0400 Body weight 54.7 kg Juan José Ball Other [employer] Other 11-16-2022 14:30-0400 Diastolic blood pressure 78 mm[Hg] Juan José Ball Other [employer] Other 11-16-2022 14:30-0400 Respiratory rate 12 /min Juan José Ball Other [employer] Other 11-16-2022 14:30-0400 Systolic blood pressure 138 mm[Hg] Juan José Ball Other [employer] [employer] Other 11-23-2021 13:34-0400 Blood Pressure Location Mj Mendenhall Jr. [facility] 11-23-2021 13:34-0400 Diastolic blood pressure 98 mm[Hg] Mj Mendenhall Jr. [facility] 11-23-2021 13:34-0400 Heart rate 67 /min Mj Mendenhall Jr. [facility] 11-23-2021 13:34-0400 Systolic blood pressure 150 mm[Hg] Mj Mendenhall Jr. [facility] Encounters Encounter Date Encounter Type Care Provider Facility Start: 11-20-2024 End: 11-20-2024 [facility] Start: 09-25-2024 End: 09-25-2024 ambulatory [facility] Start: 08-14-2024 End: 08-14-2024 ambulatory [facility] Start: 06-15-2024 End: 06-15-2024 ambulatory [facility] Work Phone: Start: 06-15-2024 End: 06-15-2024 Patient encounter procedure [facility] Physician [facility] Work Phone: Start: 06-07-2024 Non-patient / Non-visit [facility] Physician [facility] Work Phone: Start: 03-30-2024 End: 03-30-2024 ambulatory [facility] Work Phone: Start: 03-30-2024 End: 03-30-2024 Patient encounter procedure [facility] Physician [facility] Work Phone: Start: 03-19-2024 End: 03-19-2024 ambulatory [facility] Start: 02-14-2024 End: 02-14-2024 ambulatory [facility] Start: 09-02-2023 End: 09-02-2023 ambulatory Juan José Arce Other [employer] Other Start: 09-02-2023 Nursing evaluation o f patient and report Juan José Arce [facility] Start: 08-11-2023 End: 08-11-2023 ambulatory Yandy Ragsdale Facility:[facility] Start: 08-11-2023 End: 08-11-2023 Patient encounter procedure Yandy Ragsdale [facility] Start: 07-04-2023 End: 07-04-2023 ambulatory Juan José Arce Other [employer] Other Start: 07-04-2023 Telephone encounter Juan José Arce [facility] Start: 06-30-2023 End: 06-30-2023 ambulatory Juan José Arce Other [employer] Other Start: 06-30-2023 Telephone encounter Juan José ALEXANDER [facility] Start: 06-14-2023 End: 06-14-2023 ambulatory Juan José Arce Other [employer] Other Start: 06-14-2023 Patient encounter procedure Juan José Arce [facility] Start: 05-06-2023 End: 05-06-2023 ambulatory Juan José Arce Other [employer] Other Start: 05-06-2023 Telephone encounter Juan José ALEXANDER [facility] Start: 05-04-2023 End: 05-04-2023 ambulatory Juan José Arce Other [employer] Other Start: 05-04-2023 Office outpatient vi sit 15 minutes Juan José Arce [facility] Start: 03-18-2023 End: 03-18-2023 ambulatory Juan José Arce Other [employer] Other Start: 03-18-2023 Office outpatient vi sit 25 minutes Juan José Arce [facility] Start: 01-31-2023 End: 01-31-2023 ambulatory Juan José Arce Other [employer] Other Start: 01-31-2023 Telephone encounter [facility] Start: 01-19-2023 End: 01-19-2023 Patient encounter procedure Yandy Ragsdale [facility] Start: 12-07-2022 End: 12-07-2022 ambulatory Juan José Arce Other [employer] Other Start: 12-07-2022 Telephone encounter Juan José ALEXANDER [facility] Start: 12-03-2022 End: 12-04-[address] JUAN JOSÉ ARCE Facility:[facility] Start: 11-16-2022 End: 11-16-2022 ambulatory Juan José Arce Other [facility] [employer] Other Start: 11-16-2022 Office outpatient vi sit 25 minutes Juan José Arce [facility] Start: 07-31-2022 End: 07-31-[address] JUAN JOSÉ ARCE Facility:[facility] Start: 06-04-[address] JUAN JOSÉ ARCE Facili ty:[facility] Start: 05-31-2022 End: 06-01-[address] JUAN JOSÉ ARCE Facility:[facility] Start: 11-23-2021 End: 11-23-2021 Patient encounter procedure Mj Mendenhall Jr. [facility] Start: 05-10-2017 End: 05-11-2017 Patient encounter procedure JUAN JOSÉ ARCE Facility:[facility] Procedures Date Procedure Procedure Detail Performing Clinician Start: 08-11-2023 Transurethral cystoscopy Yandy Ragsdale Start: 11-23-2021 Cystoscopy Mj raygoza Jr. Start: 01-05-2021 Cystoscopy Mj raygoza Jr. Start: 01-02-2016 Cysto/Lt stent removal jM Mendenhall Jr. Start: 12-17-2015 Cysto, Lt RG, TURBT, Lt stent Mj Mendenhall Jr. 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 Start: 06-24-2014 Nephroureterectomy Li arevalo Jn Start: 03-20-2014 Cysto, Rt RG, Ureter oscopy, Bladder bx, Rt Stent Mj Mendenhall Jr. Start: 05-02-2013 Cysto, Random Bladde r BX & Fulguration Mj Mendenhall Jr. Start: 02-14-2013 Cysto/TURBT, [place] B ladder bx & fulguration Mj Mendenhall [...] lic 2000 panel - Serum or Plasma [facility] enter XR Chest 2 Views [facility] Immunizations Immunization Date Immunization Notes Care Provider Fa cility 06-15-2024 influenza, high dose seasonal, preservative-free [facility] 06-14-2023 influenza, high dose seasonal, preservative-free Juan José Arce Other [facility] Other 06-14-2023 influenza virus vaccine, unspecified formulation [facility] 05-18-2022 influenza virus vaccine, split virus (incl. purified surface antigen) Juan José Arce Other [facility] [employer] Other 05-18-2022 influenza virus vaccine, unspecified formulation Yandy Ragsdale [facility] 09-29-2021 SARS-CoV-2 (COVID-19 ) mRNA-1273 vaccine Mj Mendenhall Jr. [facility] 05-05-2021 influenza virus vaccine, split virus (incl. purified surface antigen) Juan José Arce Other [facility] [employer] Other 05-05-2021 influenza virus vaccine, unspecified formulation [facility] 09-29-2020 SARS-CoV-2 (COVID-19 ) mRNA-1273 vaccine Mj Mendenhall Jr. [facility] 09-01-2020 SARS-CoV-2 (COVID-19 ) mRNA-1273 vaccine Mj Mendenhall Jr. [facility] 05-19-2020 influenza virus vaccine, split virus (incl. purified surface antigen) Juan José Arce Other [facility] [employer] Other 05-19-2020 influenza virus vaccine, unspecified formulation [facility] 05-21-2019 influenza virus vaccine, split virus (incl. purified surface antigen) Juan José Arce Other [facility] [employer] Other 05-21-2019 influenza virus vaccine, unspecified formulation [facility] 05-02-2018 influenza virus vaccine, split virus (incl. purified surface antigen) Juan José Arce Other [facility] [employer] Other 05-02-2018 influenza virus vaccine, unspecified formulation Yandy Giselealeisha [facility] 05-16-2017 influenza virus vaccine, split virus (incl. purified surface antigen) Juan José Arce Other [facility] Other 05-16-2017 influenza virus vaccine, unspecified formulation Yandy Ragsdale [facility] 05-21-2016 influenza virus vaccine, split virus (incl. purified surface antigen) Juan José Claude Other [facility] [employer] Other 05-21-2016 influenza virus vaccine, unspecified formulation Yandy Ragsdale [facility] 05-13-2015 influenza virus vaccine, split virus (incl. purified surface antigen) Juan José Claude Other [facility] [employer] Other 05-13-2015 influenza virus vaccine, unspecified formulation [facility] 05-13-2015 pneumococcal conjuga te vaccine, 13 valent Juan José Arce Other [facility] 05-24-2014 tetanus and diphther ia toxoids, adsorbed, preservative free, for adult use (5 Lf of tetanus toxoid and 2 Lf of diphtheria toxoid) Juan José Arce Other [facility] 05-21-2013 pneumococcal polysaccharide vaccine, 23 valent Juan José Claude Other [facility] 05-21-2013 tetanus and diphther ia toxoids, adsorbed, preservative free, for adult use (5 Lf of tetanus toxoid and 2 Lf of diphtheria toxoid) Juan José Arce Other [facility] Payers Date Payer Category Payer Medicare [id number] 2021 [employer] ( [employer] others) [id number] 2016 [employer] ( and others) [id number] 1959 [employer] ( and others) [id number] 1959 Private Health Insurance [id number] 1959 Self-pay 1940 Unknown [id number] 1940 Unknown [id number] 1940 Unknown [id number] 1940 Unknown [id number] 1940 Unknown [id number] 1940 Unknown [id number] Social History Date Type Detail Facility Start: 11-23-2021 End: 08-11-2023 Tobacco smoking status Never smoked tobacco (finding) [facility] Tobacco smoking status Never [facility] Sex Assigned At Female [facility] Start: 1940 Sex Assigned At Female F [facility] Tobacco smoking stat [facility] Unknown if ever smoked [facility] Work Phone: Start: 06-15-2024 Sex Female (finding) [facility] Functional Status Date Assessment Result Facility 08-11-2023 Functional Status N/A [facility] 01-19-2023 Functional Status N/A [facility] Clinical Notes 11-23-2021 to 09-25-2024 Note Date [...] flutter or fib EKG 11/17/2018 a sensed [place] conduction 05/10/2017 AV sequential pacing 12/03/2016 shows sinus rhythm 12/08/2015 sinus rhythm 05/12/2015 shows sinus rhythm Device check that was performed on 12/02/2020 reveals a [employer] Accolade device that was implanted on [...] on file Intimate Partner Violence: Unknown (09/22/2023) [place] Safety & Environment Fear of Current or [...] on file prior (more content not included)... [facility] 03-19-2024 Note [place] [facility] - [facility] Subjective Rebecca Hays is a 84 [...] interval 449 ms EKG: Echo: 08/02/2023 at [facility] Stress test: 12/15/2015 Carotid Doppler study 06/17/2023 Cardiac cath: Event Monitor: Cardiac MRI: CX ray: Assessment/Plan Paroxysmal atrial flutter with degeneration at times to A-fib, maintaining normal sinu (more content not included)... [facility] 09-02-2023 Evaluation note Encounter Date Diagnosis Assessment Notes Sep, Dysuria (ICD-10 - R30.0) [employer] Other 12-05-2023 Hospital Discharge instructions Follow Up Care 07/05/2023 15:39:04 With:Jn MCCRARY, Yandy Martínez, URL, URO Address: When:Within 1 Year(s) Comments:w/Cysto/Cytology [facility] 12-04-2023 Evaluation note* Encounter Date Diagnosis Assessment Notes Treatment Notes Treatment Clinical Notes Jul, Paroxysmal atrial fibrillation (ICD-10 - I48.0) [facility] [employer] [facility] Other 11-30-2023 Evaluation note* Encounter Date Diagnosis Assessment Notes Treatment Notes Treatment Clinical Notes Jun, Paroxysmal atrial fibrillation (ICD-10 - I48.0) [facility] Other 11-14-2023 Evaluation note* Encounter Date Diagnosis [...] are maintaining 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 No bleeding complications Jun, Mild persistent asthma, [...] patient on monthly SBE and yearly mammograms. 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 Mar, Elevated cholesterol (ICD-10 - E78.00) Instructed [...] pacemaker (ICD-10 - Z95.0) Continue PM checks. [employer] Other 07-03-2023 Evaluation note* Encounter Date Diagnosis Assessment Notes Treatment Notes Treatment Clinical Notes 03 James, 2023 Primary hypertension (ICD-10 - I10) [employer] Other 06-21-2023 Hospital Discharge instructions Patient Education [...] if anything looks unusual. Women with a ktftuu-rbae-avemgn risk for skin cancer may want to see a document management specialist (road freight firer) for an annual body check. What are the benefits of screening? Cancer screening is done to look for cancer in the very early stages, before it spreads and becomesharder to treat and before you would start to notice symptoms. Finding cancer early improves the chances of successful treatment. It may save your life. Where to find more information [employer]: www.cancer.org Centers for Disease Control and Prevention: www.cdc.gov National Cancer [place]: www.cancer.gov U.S. Department of Health and Human [...] provider. Document Revised: 12/14/2021 Document Reviewed: 06/13/2020 [employer] Patient Education 2022 [employer]. 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 Oct, Elevated cholesterol (ICD-10 - E78.00) Diet [...] High risk medication use (ICD-10 - Z79.899) [employer] Other 04-25-2022 Hospital Discharge instructions Patient Education [...] including vitamins, herbs, eye drops, creams, and etmg-jpd-bhdsdmz medicines. Any problems you or family members [...] provider tells you to take them. ?Taking vkdm-wmc-lunpqso medicines, vitamins, herbs, and supplements. Follow instructions [...] Follow these instructions at home: Medicines Take raqc-ctj-ravvhnq and prescription medicines only as told by [...] 07/15/2001 Document Revised: 07/10/2019 Document Reviewed: 07/10/2019 [employer] Patient Education 2020 [employer]. Follow Up Care 11/03/2021 15:16:19 With:Abdirashid Lundberg MD, Mj Trejo U[facility] Address: [facility] [address], [place] [address]- When:11/23/2022 Comments:Cysto [facility] 04-25-2022 Evaluation + Plan note Diagnostic Tests Pending * Urine Cytology ([facility]) 11/23/21 [facility] Evaluation noteNo InformationNort [employer] Other Evaluation noteNo assessment information available [facility] Work Phone: Hisgjeb general Narrative - Reported* Type Description Date [...] W/ BLADDER Hospitalization History SEE SURGICAL HX [employer] Other [facility]zq[facility] general Narrative - Reported* Type Description Date Surgical History CARDIAC PACEMAKER/DEFIBRILLATOR 2010 Surgical History APPENDECTOMY Surgical History CYSTO W/ BLADDER Hospitalization History SEE SURGICAL HX [employer] Other [facility]bbne general Narrative - Reported* Type Description Date [...] W/ BLADDER Hospitalization History SEE SURGICAL HX [employer] Other Hospital course Narrative No data available for this section [facility] Progress note No data available for this section [facility] [place] Summary Purpose Family History No Family History [...] and content) DATE CREATED AUTHOR 07/03/2020 [facility] DATE CREATED AUTHOR AUTHOR'S ORGANIZ ATION 12/10/2022 [facility] DATE CREATED AUTHOR AUTHOR'S ORGANIZ ATION 08/25/2024 [facility] DATE CREATED AUTHOR AUTHOR'S ORGANIZ ATION 11/23/2024 [facility] REASON FOR VISIT (unrecogniz ed section [...] BE BASED ON THE PRIMARY CLINICAL RECORDS. [facility]. provides no warranty or guarantee of the accuracy or completeness of information in this document.
--- NOTE | 2025-01-10 09:12 | CT_ITS ---
The [address] [address] Patient Name: TESSIE EL MRN: [id number] date: 1940 Sex: F Assigned Patient Location: LAB Current Patient Location: LAB Accession/Order Number: [id number] Exam Date: 01/10/2025 10:50 Report Date: 01/10/2025 11:03 At the request of: EUFEMIA ACLVO DO Procedure: CT abdomen pelvis w con CT ABDOMEN AND PELVIS WITH CONTRAST COMPARISON: 05/31/2023 CLINICAL DATA: Abnormal weight loss. History of bladder cancer and metastasis to the right kidney with nephrectomy. Spiral images were obtained through the abdomen and pelvis following oral and 100 mL of Omnipaque 300. This CT exam was performed using one or more following dose reduction techniques: Automated exposure control, adjustment of the mA and/or kV according to patient size, or use of iterative reconstruction technique. Limited cuts through the lung bases show borderline cardiomegaly. There are no contributory pulmonary findings. Mild fatty infiltration of the liver is suspected. No intrahepatic masses are noted. Minor cholelithiasis is seen. The spleen, pancreas and adrenal glands show no acute findings. The right kidney is surgically absent. There is no evidence of mass at the nephrectomy bed. There is a normal left nephrogram. There is minimal cortical scarring at the upper pole. No hydronephrosis is seen. There are small left renal cysts. Atherosclerotic plaque is present at the aorta, iliac and some of the visceral arteries. No enlarged lymph nodes or ascites are seen. Small bowel loops are normal caliber. There is moderate stool throughout the colon. Subtle thoracolumbar levoscoliotic curvature and degenerative changes are noted at the spine, greatest at the lower facets. There is minor associated spondylolisthesis at L4-5 and the lumbosacral junction. Images through the pelvis show no dilated small bowel. No appendiceal inflammation is seen. There is additional moderate colonic stool. No diverticular disease is noted. The uterus is surgically absent. The urinary bladder wall is borderline thickened though this may relate to incomplete distention. No intraluminal abnormalities are seen. There is no ascites or lymphadenopathy. No osseous abnormalities are noted. CT/CT abdomen pelvis w con IMPRESSION: FATTY LIVER. MINOR CHOLELITHIASIS. PRIOR RIGHT NEPHRECTOMY. TINY LEFT RENAL CYSTS. INCREASED COLONIC STOOL. NO BOWEL OR URINARY TRACT OBSTRUCTION. NO OBVIOUS RECURRENT OR METASTATIC DISEASE. Impression dictated by: Shefali Campoverde M.D. 01/10/2025 11:03 AM Dictation Location: [place] [address] Electronically authenticated by: [id number] Y Date: 01/10/2025 11:03
[2025-01-10 09:19] LABS: Estimated GFR (African America 58 (>=60 mL/min/1.73m^2); Estimated GFR (Non-African Ame 48 (>=60 mL/min/1.73m^2)
== END 2025-01-10 08:57 | disposition home or self-care (01) ==
LOC: LAB 08:56
PROVIDERS: Pathology Anatomic Pathology & Clinical Pathology; PCP Internal Medicine; Visit Provider Internal Medicine
DX: R63.4 Abnormal weight loss (principal); C67.8 Malignant neoplasm of overlapping sites of bladder; R63.0 Anorexia; K76.0 Fatty (change of) liver, not elsewhere classified; K80.20 Calculus of gallbladder without cholecystitis without obstruction; N28.1 Cyst of kidney, acquired
CPT/HCPCS: 36415; 74177; 82565; Q9967

== ENCOUNTER 2025-01-18 10:56 | Outpatient (OUT) | payer MEDICARE, OTHER, SELFPAY ==
[2025-01-18 11:24] LABS: Basophils Absolute Auto 0.1 10^3/uL (0.0-0.1); Basophils Percent Auto 0.9 % (0.2-2.0); Eosinophils Absolute Auto 0.2 10^3/uL (0.0-0.7); Eosinophils Percent Auto 2.1 % (0.9-7.0); Hematocrit 45.1 % (36.0-48.0); Hemoglobin 14.5 g/dL (12.0-16.0); Immature Granulocytes Abs Auto 0.01 10^3/uL (0.00-0.03); Immature Granulocytes Pct Auto 0.1 % (0.0-0.5); Lymphocytes Absolute Auto 2.4 10^3/uL (1.2-3.8); Mean Corpuscular HGB Conc 32.2 g/dL (29.9-35.2); Mean Corpuscular Hemoglobin 29.2 pg (26.7-34.0); Mean Corpuscular Volume 90.9 fL (81.0-99.0); Mean Platelet Volume 9.5 fL (9.5-13.5); Monocytes Absolute Auto 0.5 10^3/uL (0.3-0.8); Monocytes Percent Auto 6.6 % (1.7-12.0); Neutrophils Absolute Auto 4.6 10^3/uL (1.4-6.5); Neutrophils Percent Auto 59.3 % (43.0-75.0); Platelet Count 213 10^3/uL (150-450); Red Blood Count 4.96 10^6/uL (4.20-5.40); Red Cell Distribution Width 13.1 % (11.0-15.0); White Blood Count 7.7 10^3/uL (4.0-11.0)
--- OUTSIDE RECORDS SUMMARY | 2025-01-18 11:26 | XMS_ITS | CCD ---
Author Organization [facility] Care Team Providers Care Warehouse Loader Name Role Phone JUAN JOSÉ ARCE Referring [...] source) Povidone-Iodine Drug Allergy 05-23-20 12 [facility] Repository (6 sources) Sulfonamides (Antibiotic); Translations: [SULFA (SULFONAMIDE ANTIBIOTICS)] Drug allergy (disorder) 12-25-19 13 Unknown Reaction [facility] Repository (17 sources) Iodine; Translations: [iodine] Drug Allergy 07-18-20 23 Blister (morphologic abnormality) [facility] Ellen (4 sources) Sulfonamides (Antibiotic); Translations: [sulfa drugs] Drug allergy [facility] Ellen (10 sources) Albuterol / Ipratropium Drug Allergy Unknown [facility] Other (12 sources) montelukast Drug Allergy 12-13-19 24 Unknown, Unknown Reaction [facility] (10 sources) Sulfamethoxazole / Trimethoprim Drug Allergy Unknown [facility] Other (10 sources) Substance with sulfonamide structure and antibacterial mechanism of action (substance) Drug allergy Unknown [facility] Other (2 sources) Iodine Drug Allergy 01-13-20 13 [facility] Repository (2 sources) Albuterol Drug Allergy 12-13-19 24 Unknown Reaction [facility] (2 sources) Ipratropium Drug Allergy 12-13-19 24 Unknown Reaction [facility] (2 sources) Sulfamethoxazole Drug Allergy 12-13-19 24 Unknown Reaction [facility] (2 sources) Trimethoprim Drug Allergy 12-13-19 24 Unknown Reaction [facility] (1 source) Povidone-Iodine; Translations: [POVIDONE-IODINE] Drug Allergy 07-19-20 14 [facility] Repository Medications Current Medications Medication Drug [...] procedure., # 2 cap(s), Refills(s) 0, [id number], 158, cm, 01/05/21 13:27:00 EDT, Height/Length Dosing, [...] 05-31-2022 Chronic Other aftercare (2 sources) Other termination clerk (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) drug therapy; Translations: [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] Onset: 12-09-2022 Episodic Other [...] Onset: 03-19-2024 Episodic Other aftercare (1 source) 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 (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) 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 of 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; Translations: [LINK 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 CURRENT USE OF ASPIRIN] Onset: 08-03-2022 Episodic [...] Range Facility Office Visiton 09-25-2024 Follow-up visit [id number] Rebecca Hays 1940 F Date Provider Department Center 09/25/2024 JUAN ISLAS KATEY [facility] Family History Problem Relation Age of Onset No Known Problems Mother No Known Problems Father Family Status - Relation Status Age at Mother Father Level of Service:57833 [place] OFFICE/OUTPATIENT ESTABLISHED LOW MDM 20 MIN Normal [facility] Laboratory - Chemistry and C hemistry - challengeon 03-30-2024 Bilirubin Ql (U) Negative [facility] Glucose (U) [Mass/Vol] Negative [facility] Ketones Ql (U) Negative [facility] pH (U) 5 [pH] [facility] Specific gravity (U) [Rel density] 1.010 [facility] Urobilinogen (U) [Mass/Vol] 0.2 mg/dL [facility] Laboratory - Specimen inform ationon 03-30-2024 Appearance (U) cloudy [facility] Color (U) darkyellow [facility] Laboratory - Urinalysison Leukocyte esterase Test strip Ql (U) ++ [facility] Nitrite Ql (U) Negative [facility] Protein Ql (U) ++ [facility] No Panel Informationon 03-30 Urine Occult Blood +++ [facility] 29on 03-19-2024 29 Addended by: SAVANAH RASCON on: 03/19/2024 02:47 PM Modules accepted: Orders Normal [facility] Office Visiton 03-19-2024 Follow-up visit [id number] Rebecca Hays 1940 F Date Provider Department Center 03/19/2024 [id number] RASCON CARD Rajan Seo Family History Problem Relation Age of Onset No Known Problems Mother No Known Problems Father Family Status - Relation Status Age at Mother Father Level of Service:06780 [place] OFFICE/OUTPATIENT ESTABLISHED MOD MDM 30 MIN Reason for Visit and Comments: Atrial Fibrillation [80] Follow-up [455885] - Atrial fibrillation Normal [facility] Urinalysis - DIPSTICKon 02-0 Appearance (U) cloudy [facility] Other Bilirubin Ql (U) Negative [facility] Other Color (U) yellow [facility] Other Glucose Ql (U) Negative [facility] Other Hemoglobin Ql (U) ++ [facility] Other Ketones Ql (U) Negative [facility] Other Leukocyte esterase Test strip Ql (U) 125++ [facility] Other Nitrite Ql (U) Negative [facility] Other pH (U) 7.5 [pH] [facility] Other Protein Ql (U) 15 [facility] Other Specific gravity (U) [Rel density] 1.005 [facility] Other Urobilinogen (U) [Mass/Vol] 0.2 mg/dL [email or web address] Other Urinalysis - DIPSTICK [email or web address] Other CBC AUTO DIFFon 12-03-2022 BASO # 0.1 103/ul Normal 0.0-0.1 [facility] Comment on above: Performed By: #### C BC #### [facility] [address] [place] [address] Dr. Radha Pacheco Basophils/100 WBC (Bld) 1.0 % Normal 0.2-2.0 [facility] Comment on above: Performed By: #### C BC #### [facility] [address] [place] [address] Dr. Radha Pacheco EO # 0.2 103/ul Normal 0.0-0.7 [facility] Comment on above: Performed By: #### C BC #### [facility] [address] [place] [address] Dr. Radha Pacheco Eosinophils/100 WBC (Bld) 2.7 % Normal 0.9-7.0 [facility] Comment on above: Performed By: #### C BC #### [facility] [address] [place] [address] Dr. Radha Pacheco Erythrocyte distribution width (RBC) [Ratio] 13.2 % Normal 11.0-15.0 [facility] Comment on above: Performed By: #### C BC #### [facility] [address] [place] [address] Dr. Radha Pacheco Hematocrit (Bld) [Volume fraction] 43.7 % Normal 36.0-48.0 [facility] Comment on above: Performed By: #### C BC #### [facility] [address] [place] [address] Dr. Radha Pacheco Hemoglobin (Bld) [Mass/Vol] 13.8 g/dL Normal 12.0-16.0 [facility] Comment on above: Performed By: #### C BC #### [facility] [address] [place] [address] Dr. Radha Pacheco IG # 0.01 10e3/ul Normal 0.00-0.03 [facility] Comment on above: Performed By: #### C BC #### [facility] [address] [place] [address] Dr. Radha Pacheco IG % 0.1 % Normal 0.0-0.5 [facility] Comment on above: Performed By: #### C BC #### [facility] [address] [place] [address] Dr. Radha Pacheco LYMPH # 2.6 103/ul Normal 1.2-3.8 [facility] Comment on above: Performed By: #### C BC #### [facility] [address] [place] [address] Dr. Radha Pacheco Lymphocytes/100 WBC (Bld) 37.3 % Normal 20.5-60.0 [facility] Comment on above: Performed By: #### C BC #### [facility] [address] [place] [address] Dr. Radha Pacheco MANUAL DIFF REQ NO Normal [facility] Comment on above: Performed By: #### C BC #### [facility] [address] [place] [address] Dr. Radha Pacheco MCH (RBC) [Entitic mass] 28.5 pg Normal 26.7-34.0 [facility] Comment on above: Performed By: #### C BC #### [facility] [address] [place] [address] Dr. Radha Pacheco MCHC (RBC) [Mass/Vol] 31.6 g/dL Normal 29.9-35.2 [facility] Comment on above: Performed By: #### C BC #### [facility] [address] [place] [address] Dr. Radha Pacheco MCV (RBC) [Entitic vol] 90.3 fL Normal 81.0-99.0 [facility] Comment on above: Performed By: #### C BC #### [facility] [address] [place] [address] Dr. Radha Pacheco MONO # 0.4 103/ul Normal 0.3-0.8 [facility] Comment on above: Performed By: #### C BC #### [facility] [address] [place] [address] Dr. Radha Pacheco Monocytes/100 WBC (Bld) 6.2 % Normal 1.7-12.0 [facility] Comment on above: Performed By: #### C BC #### [facility] [address] [place] [address] Dr. Radha Pacheco NEUT # 3.6 103/ul Normal 1.4-6.5 [facility] Comment on above: Performed By: #### C BC #### [facility] [address] [place] [address] Dr. Radha Pacheco Neutrophils/100 WBC (Bld) 52.7 % Normal 43.0-75.0 [facility] Comment on above: Performed By: #### C BC #### [facility] [address] [place] [address] Dr. Radha Pacheco Platelet mean volume (Bld) [Entitic vol] 9.7 fL Normal 9.5-13.5 [facility] Comment on above: Performed By: #### C BC #### [facility] [address] [place] [address] Dr. Radha Pacheco PLT 240 103/ul Normal 150-450 The [facility] Comment on above: Performed By: #### C BC #### [facility] [address] [place] [address] Dr. Radha Pacheco RBC 4.84 106/ul Normal 4.20-5.40 The [facility] Comment on above: Performed By: #### C BC #### [facility] [address] [place] [address] Dr. Radha Pacheco WBC 6.9 103/ul Normal 4.0-11.0 The [facility] Comment on above: Performed By: #### C BC #### [facility] [address] [place] [address] Dr. Radha Pacheco LIPID PROFILEon 12-03-2022 CHOL-HDL RATIO NORM SEE BELOW Normal The [facility] Comment on above: Result Comment: 3.3 - 4.4 LOW RISK 4.4 - 7.1 AVERAGE RISK 7.1 - 11.0 MODERATE RISK >11.0 HIGH RISK Performed By: #### B MP, LIPID, ALT #### [facility] [address] [address] [address] Radha Pacheco Cholesterol [Mass/Vol] 145 mg/dL Normal <=200 [facility] Comment on above: Performed By: #### B MP, LIPID, ALT #### [facility] [address] [address] [address] Radha Pacheco Cholesterol in HDL [Mass/Vol] 71 mg/dL Critically high 40-60 [facility] Comment on above: Performed By: #### B MP, LIPID, ALT #### [facility] [address] [address] [address] Radha Pacheco Cholesterol in LDL [Mass/Vol] 56.8 mg/dL Normal [facility] Comment on above: Performed By: #### B MP, LIPID, ALT #### [facility] [address] [address] [address] Radha Pacheco Cholesterol.total/ Cholesterol in HDL [Mass ratio] 2.0 {ratio} Normal [facility] Comment on above: Performed By: #### B MP, LIPID, ALT #### [facility] [address] [address] [address] Radha Pacheco HDL NORMAL > or = 60 mg/dl - LOW CARDIOVASCULAR RISK <40 mg/dl - HIGH CARDIOVASCULAR RISK Normal [facility] Comment on above: Performed By: #### B MP, LIPID, ALT #### [facility] [address] [address] [address] Radha Pacheco LDL CALC NORMAL SEE BELOW Normal The [facility] Comment on above: Result Comment: <100 mg/dl OPTIMAL 100 - 129 mg/dl NEAR OR ABOVE OPTIMAL 130 - 159 mg/dl BORDERLINE HIGH 160 - 189 mg/dl HIGH >190 mg/dl VERY HIGH Performed By: #### B MP, LIPID, ALT #### [facility] [address] [address] [address] Radha Pacheco Triglyceride [Mass/Vol] 86 mg/dL Normal <=150 [facility] Comment on above: Performed By: #### B MP, LIPID, ALT #### [facility] [address] [address] [address] Radha Pacheco VLDL CALC 17.2 mg/dL Normal [facility] Comment on above: Performed By: #### B MP, LIPID, ALT #### [facility] [address] [address] [address] Radha Pacheco PROF CHEM 8 (BAS METB)on Anion gap [Moles/Vol] 9.1 mmol/L Normal [facility] Comment on above: Performed By: #### B MP, LIPID, ALT #### [facility] [address] [place] [address] Dr. Radha Pacheco Calcium [Mass/Vol] 10.0 mg/dL Normal 8.5-10.1 [facility] Comment on above: Performed By: #### B MP, LIPID, ALT #### [facility] [address] [place] [address] Dr. Radha Pacheco Chloride [Moles/Vol] 103 mmol/L Normal 98-107 The [facility] Comment on above: Performed By: #### B MP, LIPID, ALT #### [facility] [address] [place] [address] Dr. Radha Pacheco CO2 [Moles/Vol] 32.2 mmol/L Critically high 21.0-32.0 The [facility] Comment on above: Performed By: #### B MP, LIPID, ALT #### [facility] [address] [place] [address] Dr. Radha Pacheco Creatinine [Mass/Vol] 0.97 mg/dL Normal 0.55-1.02 [facility] Comment on above: Performed By: #### B MP, LIPID, ALT #### [facility] [address] [place] [address] Dr. Radha Pacheco EGFR-AF JORDANIAN >60 Normal >=60 [facility] Comment on above: Performed By: #### B MP, LIPID, ALT #### [facility] [address] [place] [address] Dr. Radha Pacheco EGFR-NON AF JORDANIAN 55 mL/min/1.73m2 Critically low >=60 [facility] Comment on above: Performed By: #### B MP, LIPID, ALT #### [facility] [address] [address] [address] Radha Pacheco Glucose [Mass/Vol] 108 mg/dL Critically high 74-106 [facility] Comment on above: Performed By: #### B MP, LIPID, ALT #### [facility] [address] [address] [address] Radha Pacheco Potassium [Moles/Vol] 4.3 mmol/L Normal 3.5-5.1 [facility] Comment on above: Performed By: #### B MP, LIPID, ALT #### [facility] [address] [place] [address] Dr. Radha Pacheco Sodium [Moles/Vol] 140 mmol/L Normal 136-145 [facility] Comment on above: Performed By: #### B MP, LIPID, ALT #### [facility] [address] [address] [address] Radha Pacheco Urea nitrogen [Mass/Vol] 20.0 mg/dL Critically high 7.0-18.0 [facility] Comment on above: Performed By: #### B MP, LIPID, ALT #### [facility] [address] [address] [address] Radha Pacheco Urea nitrogen/Creatinin e [Mass ratio] 20.6 mg/mg Normal [facility] Comment on above: Performed By: #### B MP, LIPID, ALT #### [facility] [address] [address] [address] Radha Pacheco SGPTon 12-03-2022 ALT [Catalytic activity/Vol] 25 U/L Normal 14-59 [facility] Comment on above: Performed By: #### B MP, LIPID, ALT #### [facility] [address] [address] [address] Radha Pacheco UA RANDOM W/MICROSCOPICon BACTERIA TRACE Abnormal NONE SEEN [facility] Comment on above: Performed By: #### U AMIC #### [facility] [address] [address] [address] Radha Pacheco Bilirubin Ql (U) Negative Normal NEGATIVE [facility] Comment on above: Performed By: #### U AMIC #### [facility] [address] [address] [address] Radha Pacheco CAST NONE SEEN Normal NONE SEEN The [facility] Comment on above: Performed By: #### U AMIC #### [facility] [address] [address] [address] Radha Pacheco Clarity (U) CLEAR Normal CLEAR The [facility] Comment on above: Performed By: #### U AMIC #### [facility] [address] [address] [address] Radha Pacheco Color (U) LT. YELLOW Normal YELLOW The [facility] Comment on above: Performed By: #### U AMIC #### [facility] [address] [address] [address] Radha Pacheco Crystals LM Nom (Urine sed) NONE SEEN Normal NONE SEEN The [facility] Comment on above: Performed By: #### U AMIC #### [facility] [address] [address] [address] Radha Pacheco Epithelial cells LM Ql (Urine sed) FEW Abnormal NONE SEEN /RARE The [facility] Comment on above: Performed By: #### U AMIC #### [facility] [address] [address] [address] Radha Pacheco Glucose Ql (U) Negative Normal NEGATIVE The [facility] Comment on above: Performed By: #### U AMIC #### [facility] [address] [address] [address] Radha Pacheco Hemoglobin Ql (U) Negative Normal NEGATIVE The [facility] Comment on above: Performed By: #### U AMIC #### [facility] [address] [place] [address] Dr. Radha Pacheco Ketones Ql (U) Negative Normal NEGATIVE The [facility] Comment on above: Performed By: #### U AMIC #### [facility] [address] [address] [address] Radha Pacheco LEUKOCYTES SMALL Abnormal NEGATIVE The [facility] Comment on above: Performed By: #### U AMIC #### [facility] [address] [address] [address] Radha Pacheco MUCOUS NONE SEEN Normal NONE SEEN The [facility] Comment on above: Performed By: #### U AMIC #### [facility] [address] [address] [address] Radha Pacheco Nitrite Ql (U) Negative Normal NEGATIVE The [facility] Comment on above: Performed By: #### U AMIC #### [facility] [address] [address] [address] Radha Pacheco pH (U) 7.5 [pH] Normal 5-9 The [facility] Comment on above: Performed By: #### U AMIC #### [facility] [address] [place] [address] Dr. Radha Pacheco RBC NONE SEEN Abnormal 0-2 The [facility] Comment on above: Performed By: #### U AMIC #### [facility] [address] [place] [address] Dr. Radha Pacheco SPEC GRAVITY 1.015 Normal 1.005-<=1.[address] [facility] Comment on above: Performed By: #### U AMIC #### [facility] [address] [place] [address] Dr. Radha Pacheco UA PROTEIN Negative Normal NEGATIVE/ TRACE The [facility] Comment on above: Performed By: #### U AMIC #### [facility] [address] [address] [address] Radha Pacheco Urobilinogen Qn (U) 0.2 {Teodora'U}/dL Normal 0.2 - 1.0 The [facility] Comment on above: Performed By: #### U AMIC #### [facility] [address] [place] [address] Dr. Radha Pacheco WBC 2-5 Abnormal NONE SEEN The [facility] Comment on above: Performed By: #### U AMIC #### [facility] [address] [place] [address] Dr. Radha Pacheco XR CHEST 1 Von 07-31-2022 XR CHEST 1 V EXAM: XR CHEST 1 V HISTORY: COUGH COMPARISON: 11/20/2021 TECHNIQUE: Single view of the chest. FINDINGS: Left chest cardiac device and leads noted. Unremarkable cardiomediastinal silhouette. No focal consolidation, pleural effusion, pulmonary congestion or pneumothorax. IMPRESSION: No acute findings. Electronically authenticated by: ANTONIO CUADRA Date: 2022-07-31 10:49 Normal [facility] US CAROTID ART BILon 022 US [...] by: SHELLIE PATEL Date: 2022-06-01 06:20 Normal [facility] XR DEXA BONE DENSITYon 05-31 XR [...] by: SHELLIE PATEL Date: 2022-05-31 15:14 Normal [facility] Vital Signs Date Time Vital Sign Value Performing Clinician Facility 06-15-2024 13:50-0500 Body mass index (BMI) [Ratio] 20.5 kg/m2 [facility] 06-15-2024 13:50-0500 Diastolic blood pressure 74 mm[Hg] [facility] 06-15-2024 13:50-0500 Heart rate 63 /min [facility] 06-15-2024 13:50-0500 Systolic blood pressure 121 mm[Hg] [facility] 06-14-2024 07:26-0500 Body height 157.48 cm [facility] 06-14-2024 07:26-0500 Body weight 50.8 kg [facility] 08-11-2023 13:31-0500 Blood Pressure Location Yandy Lue [facility] 08-11-2023 13:31-0500 Diastolic blood pressure 55 mm[Hg] Yandy Lue [facility] 08-11-2023 13:31-0500 Heart rate 106 /min Yandy Lue [facility] 08-11-2023 13:31-0500 Systolic blood pressure 100 mm[Hg] Yandy Lue [facility] 06-14-2023 14:00-0500 Body height 157.48 cm Juan José Ball Other [email or web address] Other 06-14-2023 14:00-0500 Body mass index (BMI) [Ratio] 21.32 kg/m2 Juan José Ball Other [email or web address] Other 06-14-2023 14:00-0500 Body weight 52.89 kg Juan José Ball Other [email or web address] Other 06-14-2023 14:00-0500 Diastolic blood pressure 85 mm[Hg] Juan José Ball Other [facility] Other 06-14-2023 14:00-0500 Respiratory rate 12 /min Juan José Ball Other [facility] Other 06-14-2023 14:00-0500 Systolic blood pressure 130 mm[Hg] Juan José Ball Other [facility] Other 03-18-2023 13:30-0400 Body height 157.48 cm Juan José Ball Other [facility] Other 03-18-2023 13:30-0400 Body mass index (BMI) [Ratio] 21.29 kg/m2 Juan José Ball Other [facility] Other 03-18-2023 13:30-0400 Body weight 52.8 kg Juan José Ball Other [facility] Other 03-18-2023 13:30-0400 Diastolic blood pressure 83 mm[Hg] Juan José Ball Other [facility] Other 03-18-2023 13:30-0400 Respiratory rate 12 /min Juan José Ball Other [facility] Other 03-18-2023 13:30-0400 Systolic blood pressure 147 mm[Hg] Juan José Ball Other [facility] Other 01-19-2023 11:15-0400 Heart rate 70 /min Yandy Jaquezaleisha [facility] 11-16-2022 14:30-0400 Body height 157.48 cm Juan José Ball Other [facility] Other 11-16-2022 14:30-0400 Body mass index (BMI) [Ratio] 22.06 kg/m2 Juan José Ball Other [facility] Other 11-16-2022 14:30-0400 Body weight 54.7 kg Juan José Ball Other [facility] Other 11-16-2022 14:30-0400 Diastolic blood pressure 78 mm[Hg] Juan José Ball Other [facility] Other 11-16-2022 14:30-0400 Respiratory rate 12 /min Juan José Ball Other [facility] Other 11-16-2022 14:30-0400 Systolic blood pressure 138 mm[Hg] Juan José Ball Other [facility] Other 11-23-2021 13:34-0400 Blood Pressure Location Mj Mendenhall Jr. [facility] 11-23-2021 13:34-0400 Diastolic blood pressure 98 mm[Hg] Mj Mendenhall Jr. [facility] 11-23-2021 13:34-0400 Heart rate 67 /min Mj Mendenhall Jr. [facility] 11-23-2021 13:34-0400 Systolic blood pressure 150 mm[Hg] Mj Mendenhall Jr. [facility] Encounters Encounter Date Encounter Type Care Provider Facility Start: 11-20-2024 End: 11-20-2024 [facility] Start: 09-25-2024 End: 09-25-2024 ambulatory [facility] Start: 08-14-2024 End: 08-14-2024 ambulatory [facility] Start: 06-15-2024 End: 06-15-2024 ambulatory [facility] Work Phone: Start: 06-15-2024 End: 06-15-2024 Patient encounter procedure [facility]ician [facility] Work Phone: Start: 06-07-2024 Non-patient / Non-visit [facility]ician [facility] Work Phone: Start: 03-30-2024 End: 03-30-2024 ambulatory [facility] Work Phone: Start: 03-30-2024 End: 03-30-2024 Patient encounter procedure [facility] Physician [facility] Work Phone: Start: 03-19-2024 End: 03-19-2024 ambulatory [facility] Start: 02-14-2024 End: 02-14-2024 ambulatory [facility] Start: 09-02-2023 End: 09-02-2023 ambulatory Juan José Arce Other [facility] Other Start: 09-02-2023 Nursing evaluation o f patient and report Juan José Arce [facility] Start: 08-11-2023 End: 08-11-2023 ambulatory Yandy Ragsdale Facility:[facility] Start: 08-11-2023 End: 08-11-2023 Patient encounter procedure Yandy Ragsdale [facility] Start: 07-04-2023 End: 07-04-2023 ambulatory Juan José Arce Other [facility] Other Start: 07-04-2023 Telephone encounter Juan José Arce [facility] Start: 06-30-2023 End: 06-30-2023 ambulatory Juan José Arce Other [facility] Other Start: 06-30-2023 Telephone encounter Juan José ALEXANDER [facility] Start: 06-14-2023 End: 06-14-2023 ambulatory Juan José Arce Other [facility] Other Start: 06-14-2023 Patient encounter procedure Juan José Arce [facility] Start: 05-06-2023 End: 05-06-2023 ambulatory Juan José Arce Other [facility] Other Start: 05-06-2023 Telephone encounter Juan José ALEXANDER [facility] Start: 05-04-2023 End: 05-04-2023 ambulatory Juan José Arce Other [facility] Other Start: 05-04-2023 Office outpatient vi sit 15 minutes Juan José Arce [facility] Start: 03-18-2023 End: 03-18-2023 ambulatory Juan José Arce Other [facility] Other Start: 03-18-2023 Office outpatient vi sit 25 minutes Juan José Arce [facility] Start: 01-31-2023 End: 01-31-2023 ambulatory Juan José Arce Other [facility] Other Start: 01-31-2023 Telephone encounter [facility] Start: 01-19-2023 End: 01-19-2023 Patient encounter procedure Yandy Ragsdale [facility] Start: 12-07-2022 End: 12-07-2022 ambulatory Juan José Arce Other [facility] Other Start: 12-07-2022 Telephone encounter Juan José ALEXANDER [facility] Start: 12-03-2022 End: 12-04-[address] JUAN JOSÉ ARCE Facility:[facility] Start: 11-16-2022 End: 11-16-2022 ambulatory Juan José Arce Other [facility] Other Start: 11-16-2022 Office outpatient vi sit 25 minutes Juan José Arce [facility] Start: 07-31-2022 End: 07-31-[address] JUAN JOSÉ ARCE Facility:[facility] Start: 06-04-[address] JUAN JOSÉ ARCE Facili ty:[facility] Start: 05-31-2022 End: 06-01-[address] JUAN JOSÉ ARCE Facility:[facility] Start: 11-23-2021 End: 11-23-2021 Patient encounter procedure Mj Mendenhall Jr. [facility] Start: 05-10-2017 End: 05-11-2017 Patient encounter procedure JUAN JOSÉ ARCE Facility:[facility] Procedures Date Procedure Procedure Detail [...] Fulguration Mj Mendenhall Jr. Start: 02-14-2013 Cysto/TURBT, [place] B ladder bx & fulguration Mj Mendenhall [...] lic 2000 panel - Serum or Plasma [facility] enter XR Chest 2 Views [facility] Immunizations Immunization Date Immunization Notes Care Provider Fa cility 06-15-2024 influenza, high dose seasonal, preservative-free [facility] 06-14-2023 influenza, high dose seasonal, preservative-free Juan José Arce Other [facility] Other 06-14-2023 influenza virus vaccine, unspecified formulation [facility] 05-18-2022 influenza virus vaccine, split virus (incl. purified surface antigen) Juan José Arce Other [email or web address] Other 05-18-2022 influenza virus vaccine, unspecified formulation Yandy Ragsdale [facility] 09-29-2021 SARS-CoV-2 (COVID-19 ) mRNA-1273 vaccine Mj Mendenhall Jr. [facility] 05-05-2021 influenza virus vaccine, split virus (incl. purified surface antigen) Juan José Arce Other [facility] Other 05-05-2021 influenza virus vaccine, unspecified formulation [facility] 09-29-2020 SARS-CoV-2 (COVID-19 ) mRNA-1273 vaccine Mj Mendenhall Jr. [facility] 09-01-2020 SARS-CoV-2 (COVID-19 ) mRNA-1273 vaccine Mj Mendenhall Jr. [facility] 05-19-2020 influenza virus vaccine, split virus (incl. purified surface antigen) Juan José Arce Other [facility] Other 05-19-2020 influenza virus vaccine, unspecified formulation [facility] 05-21-2019 influenza virus vaccine, split virus (incl. purified surface antigen) Juan José Arce Other [facility] Other 05-21-2019 influenza virus vaccine, unspecified formulation [facility] 05-02-2018 influenza virus vaccine, split virus (incl. purified surface antigen) Juan José Arce Other [facility] Other 05-02-2018 influenza virus vaccine, unspecified formulation Yandy Giselealeisha [facility] 05-16-2017 influenza virus vaccine, split virus (incl. purified surface antigen) Juan José Arce Other [facility] Other 05-16-2017 influenza virus vaccine, unspecified formulation Yandy Ragsdale [facility] 05-21-2016 influenza virus vaccine, split virus (incl. purified surface antigen) Juan José Claude Other [email or web address] [facility] Other 05-21-2016 influenza virus vaccine, unspecified formulation Yandy Ragsdale [facility] 05-13-2015 influenza virus vaccine, split virus (incl. purified surface antigen) Juan José Claude Other [email or web address] [facility] Other 05-13-2015 influenza virus vaccine, unspecified formulation [facility] 05-13-2015 pneumococcal conjuga te vaccine, 13 valent Juan José Arce Other [facility] 05-24-2014 tetanus and diphther ia toxoids, adsorbed, preservative free, for adult use (5 Lf of tetanus toxoid and 2 Lf of diphtheria toxoid) Juan José Arce Other [facility] 05-21-2013 pneumococcal polysaccharide vaccine, 23 valent Juan José Claude Other [facility] 05-21-2013 tetanus and diphther ia toxoids, adsorbed, preservative free, for adult use (5 Lf of tetanus toxoid and 2 Lf of diphtheria toxoid) Juan José Arce Other [facility] Payers Date Payer Category Payer Medicare [id number] 2021 [employer] others) [id number] 2016 [employer] others) [id number] 1959 [employer] ( and others) [id number] 1959 Private Health Insurance [id number] 1959 Self-pay 1940 Unknown [id number] 1940 Unknown [id number] 1940 Unknown [id number] 1940 Unknown [id number] 1940 Unknown [id number] 1940 Unknown [id number] Social History Date Type Detail Facility Start: 11-23-2021 End: 08-11-2023 Tobacco smoking status Never smoked tobacco (finding) [facility] Tobacco smoking status Never [facility] Sex Assigned At Female [facility] Start: 1940 Sex Assigned At Female [facility] Tobacco smoking stat [facility] Unknown if ever smoked [facility] Work Phone: Start: 06-15-2024 Sex Female (finding) [facility] Functional Status Date Assessment Result Facility 08-11-2023 Functional Status N/A [facility] 01-19-2023 Functional Status N/A [facility] Rajan Clinical Notes 11-23-2021 to 09-25-2024 Note [...] flutter or fib EKG 11/17/2018 a sensed [place] conduction 05/10/2017 AV sequential pacing 12/03/2016 shows sinus rhythm 12/08/2015 sinus rhythm 05/12/2015 shows sinus rhythm Device check that was performed on 12/02/2020 reveals a [employer] Accolade device that was implanted on [...] on file Intimate Partner Violence: Unknown (09/22/2023) [place] Safety & Environment Fear of Current or [...] on file prior (more content not included)... [facility] 03-19-2024 Note [place] [facility] Subjective Rebecca Hays is a [...] interval 449 ms EKG: Echo: 08/02/2023 at [facility] Stress test: 12/15/2015 Carotid Doppler study 06/17/2023 Cardiac cath: Event Monitor: Cardiac MRI: CX ray: Assessment/Plan Paroxysmal atrial flutter with degeneration at times to A-fib, maintaining normal sinu (more content not included)... [facility] 09-02-2023 Evaluation note Encounter Date Diagnosis Assessment Notes Sep, Dysuria (ICD-10 - R30.0) [facility] Other 12-05-2023 Hospital Discharge instructions Follow Up Care 07/05/2023 15:39:04 With:Jn MCCRARY, Yandy Martínez, URL, URO Address: When:Within 1 Year(s) Comments:w/Cysto/Cytology [facility] 12-04-2023 Evaluation note* Encounter Date Diagnosis Assessment Notes Treatment Notes Treatment Clinical Notes Jul, Paroxysmal atrial fibrillation (ICD-10 - I48.0) [facility] Other 11-30-2023 Evaluation note* Encounter Date Diagnosis Assessment Notes Treatment Notes Treatment Clinical Notes Jun, Paroxysmal atrial fibrillation (ICD-10 - I48.0) [facility] Other 11-14-2023 Evaluation note* Encounter Date Diagnosis [...] are maintaining regular scheduled appts with their disease case manager rn. No bleeding complications Jun, Mild persistent asthma, [...] patient on monthly SBE and yearly mammograms. [facility] Other 10-04-2023 Evaluation note* Encounter Date Diagnosis [...] in public places for complete 10 days [facility] Other 08-18-2023 Evaluation note* Encounter Date Diagnosis [...] are maintaining regular scheduled appts with their disease case manager rn. Mar, Elevated cholesterol (ICD-10 - E78.00) Instructed [...] pacemaker (ICD-10 - Z95.0) Continue PM checks. [facility] Other 07-03-2023 Evaluation note* Encounter Date Diagnosis Assessment Notes Treatment Notes Treatment Clinical Notes 03 James, 2023 Primary hypertension (ICD-10 - I10) [facility] Other 06-21-2023 Hospital Discharge instructions Patient Education [...] if anything looks unusual. Women with a qjmpal-eaui-hrrevb risk for skin cancer may want to see a satellite specialist (pediatric clinical dietician) for an annual body check. What are the benefits of screening? Cancer screening is done to look for cancer in the very early stages, before it spreads and becomesharder to treat and before you would start to notice symptoms. Finding cancer early improves the chances of successful treatment. It may save your life. Where to find more information [employer]: www.cancer.org Centers for Disease Control and Prevention: www.cdc.gov National Cancer Viola: www.cancer.gov U.S. Department of Health and Human [...] provider. Document Revised: 12/14/2021 Document Reviewed: 06/13/2020 [employer] Patient Education 2022 [email or web address]. Follow Up Care 11/03/2022 13:49:34 With:Jn MCCRARY, MACY Glass, [facility] Address: [address] [place] [address] [phone] When:Within 3 Month(s) Comments:CTU [facility] 04-18-2023 Evaluation note* Encounter Date Diagnosis [...] are maintaining regular scheduled appts with their disease case manager rn. Oct, Elevated cholesterol (ICD-10 - E78.00) Diet [...] High risk medication use (ICD-10 - Z79.899) [facility] Other 04-25-2022 Hospital Discharge instructions Patient Education [...] including vitamins, herbs, eye drops, creams, and mlhd-gye-mnoyhbe medicines. Any problems you or family members [...] provider tells you to take them. ?Taking eilt-gxd-qkyiahq medicines, vitamins, herbs, and supplements. Follow instructions [...] Follow these instructions at home: Medicines Take smrk-dbx-dxvmrfd and prescription medicines only as told by [...] 07/15/2001 Document Revised: 07/10/2019 Document Reviewed: 07/10/2019 [employer] Patient Education 2020 [email or web address]. Follow Up Care 11/03/2021 15:16:19 With:Abdirashid Lundberg MD, Mj Trejo U[facility] Address: [facility] [address], [place] [address]- When:11/23/2022 Comments:Cysto [facility] 04-25-2022 Evaluation + Plan note Diagnostic Tests Pending * Urine Cytology ([facility]) 11/23/21 [facility] Evaluation noteNo InformationNort Check Other Evaluation noteNo assessment information available [facility] Work Phone: Hisbpat general Narrative - Reported* Type Description Date [...] W/ BLADDER Hospitalization History SEE SURGICAL HX [facility] Other Hisnvcu general Narrative - Reported* Type Description Date Surgical History CARDIAC PACEMAKER/DEFIBRILLATOR 2010 Surgical History APPENDECTOMY Surgical History CYSTO W/ BLADDER Hospitalization History SEE SURGICAL HX [facility] Other Hiscadn general Narrative - Reported* Type Description Date [...] W/ BLADDER Hospitalization History SEE SURGICAL HX [facility] Other Hospital course Narrative No data available for this section [facility] Progress note No data available for this section [facility] Summary Purpose Family History No Family History [...] and content) DATE CREATED AUTHOR 07/03/2020 [facility] DATE CREATED AUTHOR AUTHOR'S ORGANIZ ATION 12/10/2022 [facility] DATE CREATED AUTHOR AUTHOR'S ORGANIZ ATION 08/25/2024 [facility] DATE CREATED AUTHOR AUTHOR'S ORGANIZ ATION 11/23/2024 [facility] REASON FOR VISIT (unrecogniz ed section [...] BE BASED ON THE PRIMARY CLINICAL RECORDS. [employer]$ [employer] [facility]. provides no warranty or guarantee of the accuracy or completeness of information in this document.
[2025-01-18 11:38] LABS: Creatinine Urine Random 68.33 mg/dL (20.00-300.00); Microalbum Creatinine Ratio Ur 40.9 mg/g (0.0-29.9); Microalbumin Urine Random 2.8 mg/dL (<=30.0)
[2025-01-18 11:51] LABS: Alanine Aminotransferase 23 U/L (14-59); Albumin Level 3.6 g/dL (3.4-5.0); Alkaline Phosphatase 66 U/L (46-116); Amylase 88 U/L (25-115); Anion Gap 8.8; Aspartate Amino Transferase 14 U/L (15-37); BUN Creatinine Ratio 22.6; Bilirubin Total 0.9 mg/dL (0.2-1.0); Calcium 10.4 mg/dL (8.5-10.1); Carbon Dioxide 35.8 mmol/L (21.0-32.0); Chloride 102 mmol/L (98-107); Estimated GFR (African America 60 (>=60 mL/min/1.73m^2); Estimated GFR (Non-African Ame 49 (>=60 mL/min/1.73m^2); Globulin 3.5 g/dL; Glucose 127 mg/dL (74-106); Potassium 3.6 mmol/L (3.5-5.1); Sodium 143 mmol/L (136-145); Thyroid Stimulating Hormone 2.599 uIU/mL (0.358-3.740); Total Protein 7.1 g/dL (6.4-8.2)
== END 2025-01-18 10:57 | disposition home or self-care (01) ==
LOC: LAB 11:07
PROVIDERS: PCP Internal Medicine; Visit Provider Internal Medicine
DX: R63.0 Anorexia (principal); C67.8 Malignant neoplasm of overlapping sites of bladder; R63.4 Abnormal weight loss; I10 Essential (primary) hypertension; I48.0 Paroxysmal atrial fibrillation
CPT/HCPCS: 36415; 80053; 82043; 82150; 82570; 83690; 84443; 85025

== ENCOUNTER 2025-04-16 13:52 | Outpatient (OUT) | payer MEDICARE, OTHER, SELFPAY ==
--- OUTSIDE RECORDS SUMMARY | 2025-04-16 14:28 | XMS_ITS | CCD ---
Author Organization [facility] Care Team Providers Care Printing Manager Name Role Phone JUAN JOSÉ ARCE Referring Unavailable CLAUDE, JUAN JOSÉ Primary Care Unavailable EARL BAUTISTA Attending Unavailable EARL BAUTISTA Admitting Unavailable JUAN JOSÉ ARCE Primary Care Physician Juan José Arce Unavailable CLAUDE, DR FALL Primary Care Unavailable [...] Ragsdale Attending Unavailable Yandy Ragsdale Admitting Unavailable LADARIUS, JUAN Attending Unavailable SAVANAH RASCON Attending Unavailable JUAN URRUTIA Referring Unavailable LADARIUS, JUAN Attending Unavailable JUAN URRUTIA Referring Unavailable Juan José Arce DO Primary Care Provider Zulay Pacheco MD Attending Provider Unavailab Juan José Fry DO Attending Provider Allergies Allergy Classification Reported Allergen(s) Allergy Type Date of Onset Reaction(s) Facility (1 source) Povidone-Iodine Drug Allergy 05-23-20 12 [facility] Repository (7 sources) Sulfonamides (Antibiotic); Translations: [SULFA (SULFONAMIDE ANTIBIOTICS)] Drug allergy (disorder) 12-25-19 13 Unknown Reaction [facility] Rep[facility] (18 sources) Iodine; Translations: [iodine] Drug Allergy 07-18-20 23 Blister (morphologic abnormality) [facility] (4 sources) Sulfonamides (Antibiotic); Translations: [sulfa drugs] Drug allergy [facility] (10 sources) Albuterol / Ipratropium Drug Allergy Unknown [facility] panpan Other (13 sources) montelukast Drug Allergy 12-13-19 24 Unknown, Unknown Reaction [facility] (10 sources) Sulfamethoxazole / Trimethoprim Drug Allergy Unknown [facility] Other (10 sources) Substance with sulfonamide structure and antibacterial mechanism of action (substance) Drug allergy Unknown [facility] Other (2 sources) Iodine Drug Allergy 01-13-20 13 [facility] Repository (3 sources) Albuterol Drug Allergy 12-13-19 24 Unknown Reaction [facility] (3 sources) Ipratropium Drug Allergy 12-13-19 24 Unknown Reaction [facility] (3 sources) Sulfamethoxazole Drug Allergy 12-13-19 24 Unknown Reaction [facility] (3 sources) Trimethoprim Drug Allergy 12-13-19 24 Unknown Reaction [facility] (1 source) Povidone-Iodine; Translations: [POVIDONE-IODINE] Drug Allergy 07-19-20 14 [facility] Repository Medications Current Medications Medication Drug Class(es) Dates Sig (Normalized) Sig (Original) [id number] 200 actuat albuterol 0.09 mg/actuat metered dose inhaler (1 source) beta2-Adrenergic Agonist Start: 03-20-2025 take 1 puff(s) by inhalation every six hours as needed for wheezing Albuterol Sulfate 90 mcg/actuation HFA aerosol inhaler Active 2 PUFF INHALATION Every 6 hours as needed for shortness of breath or wheezing 8.5 30 March 20, 2025 12:00am Complies with drug therapy aspirin 81 mg delayed release oral tablet (16 sources) Platelet Aggregation Inhibitor, Nonsteroidal Anti-inflammatory Drug Start: 12-13-2023 take 1 tablet by mouth once daily Aspirin 81 mg tablet,delayed release (DR/EC) Active 81 MG PO Daily December 13, 2023 12:00am Complies with drug therapy Start: 04-04-2019 aspirin 81 mg Start Date: 04/04/19 Status: Ordered take 1 tablet by chana every twenty-four hours Aspirin 81 81 MG 1 tablet Orally Once a day Active take 1 tablet by mouth once johnson y Aspirin 81 81 MG 1 tablet Orally Once a day Active atorvastatin 40 mg oral tablet (17 sources) HMG-CoA Reductase Inhibitor Start: 12-13-2023 End: 07-20-2024 take 1 tablet by mouth once daily Atorvastatin 40 mg tablet Active 40 MG PO Daily 90 90 July 20, 2024 6:54pm Complies with drug therapy Start: 04-04-2019 take 40 mg by mouth once daily atorvastatin 40 mg, Oral, Daily Start Date: 04/04/19 Status: Ordered 120 actuat budesonide 0.16 mg/actuat / formoterol fumarate 0.0045 mg/actuat metered dose inhaler (1 source) Corticosteroid, beta2-Adrenergic Agonist Start: 12-14-2024 take 1 puff(s) by inhalation every twelve hours Budesonide-Formoterol (Symbicort) 160-4.5 mcg/actuation HFA aerosol inhaler Active 2 PUFF INHALATION Every 12 hours 10.2 December 14, 2024 12:00am Complies with drug therapy Calcium (10 sources) Phosphate Binder, Calcium Calcium Active cephalexin 500 mg oral capsule (4 sources) Cephalosporin Antibacterial Start: 03-20-2025 take 1 capsule by mouth three times daily Cephalexin 500 mg capsule Active 500 MG PO Three times daily 13 12March 20, 2025 12:00am Complies with drug therapy Start: 03-30-2024 End: 06-15-2024 take 1 capsule by mouth three times daily Cephalexin 500 mg capsule Discontinued 500 MG PO Three times daily 13 12March 30, 2024 12:00am June 15, 2024 2:52pm Start: 11-09-2021 take 1 capsule by mo [facility] every twelve hours Keflex 500 mg Cap 500 mg = 1 cap(s), Oral, q12hr, Take 1 pill the day before the procedure and 1 pill after the procedure., # 2 cap(s), Refills(s) 0, Pharmacy: [id number], 158, cm, 01/05/21 13:27:00 EDT, Height/Length Dosing, 62.1, kg, 01/05/21 13:27:0... Start Date: 11/09/21 Status: Ordered Combivent Respimat (3 sources) Start: 04-04-2019 Combivent Respimat Start Date: 04/04/19 Status: Ordered doxycycline hyclate 100 mg oral capsule (6 sources) Tetracycline-clas s Drug Start: 05-04-2023 take 1 capsule by mouth every twelve hours Doxycycline Hyclate 100 MG 1 capsule Orally Twice a day for 5 days May, Active hydroCHLOROthiazide 12.5 mg / lisinopril 10 mg oral tablet (20 sources) Thiazide Diuretic, Angiotensin Converting Enzyme Inhibitor Start: 12-13-2023 End: 01-11-2025 take 1 tablet by mouth once daily Lisinopril-Backus chlorothiazide 10-12.5 mg tablet Active 1 TAB PO Daily 90 January 11, 2025 11:15am Complies with drug therapy Start: 11-23-2021 take 1 tablet by chana th once daily hydrochlorothiazide-lisinopril 12.5 mg-1 0 mg Tab 1 tab(s), Oral, Daily Start Date: 11/23/21 Status: Ordered loratadine 10 mg oral tablet (13 sources) Start: 12-13-2023 take 1 tablet by mouth once daily Loratadine (Claritin) 10 mg tablet Active 10 MG PO Daily December 13, 2023 12:00am Complies with drug therapy take 1 tablet by chana th every twenty-four hours Claritin 10 MG 1 tablet Orally Once a day Active montelukast 10 mg oral tablet (18 sources) Leukotriene Receptor Antagonist Start: 12-13-2023 End: 06-12-2024 take 1 tablet by mouth once daily at bedtime Montelukast 10 mg tablet Active 10 MG PO Daily at bedtime 90 June 12, 2024 2:19pm Complies with drug therapy Start: 04-04-2019 take 10 mg by mouth once daily Singulair 10 mg, Oral, Daily Start Date: 04/04/19 Status: Ordered Multivitamin preparation (11 sources) Start: 12-13-2023 take 1 tablet by mouth once daily Multivitamin Active 1 TAB PO Daily December 13, 2023 12:00am Multivitamin Act pilar Multivitamin tablet (2 sources) Start: 12-13-2023 take 1 tablet by mouth once daily Multivitamin tablet Active 1 TAB PO Daily December 13, 2023 12:00am Complies with drug therapy Start: 12-13-2023 take 1 tablet by chana th once daily Multivitamin tablet Active 1 TAB PO Daily December 12, 2023 11:00pm nitrofurantoin, macrocrystals 25 mg / nitrofurantoin, monohydrate 75 mg oral capsule (1 source) Nitrofuran Antibacterial Start: 09-02-2023 take 1 capsule by mouth every twelve hours Macrobid 100 MG 1 capsule with food Orally every 12 hrs for 5 days Sep, Active sotalol hydrochloride 80 mg oral tablet (20 sources) Antiarrhythmic Start: 09-27-2024 take 1 tablet by mouth every twelve hours Sotalol 80 mg tablet Active 80 MG PO Q12H 180 September 27, 2024 9:24pm Complies with drug therapy Start: 06-26-2024 End: 06-27-2024 take 1 tablet by mouth once daily Sotalol 120 mg tablet Discontinued 0 .ROUTE .COMPLEX June 26, 2024 10:01pm June 27, 2024 2:01pm TAKE 1 TABLET BY MOUTH DAILY Start: 12-13-2023 End: 09-27-2024 take 1 tablet by mouth once daily Sotalol (Sotalol Af) 120 mg tablet Discontinued 120 MG PO Daily 90 June 27, 2024 2:01pm September 27, 2024 9:24pm Start: 04-04-2019 sotalol 80 mg Tab Start [...] / ipratropium bromide 0.02 mg/actuat inhalation spray (14 sources) Anticholinergic, beta2-Adrenergic Agonist Start: 09-19-2023 End: 03-20-2025 take 20-100 ug by inhalation four times daily Ipratropium-Albuter ol (Combivent Respimat) 20-100 mcg/actuation mist Discontinued 1 PUFF INHALATION Four times daily 12 August 15, 2024 6:00pm March 20, 2025 3:12pm On Hold: awaiting new med space evenly during waking hours take 20-100 ug by in halation every six hours as needed Combivent Respimat 20-100 MCG/ACT 1 puff as needed Inhalation every 6 hrs Active budesonide 0.25 mg/ml inhalation suspension (1 source) Corticosteroid Start: 08-21-2024 End: 12-14-2024 take 0.5 mg by inhalation twice daily Budesonide 0.5 mg/2 mL suspension for nebulization Discontinued 0.5 MG INHALATION Twice daily 120 August 21, 2024 1:00am December 14, 2024 2:28pm ipratropium bromide 0.2 mg/ml inhalation solution (1 source) Anticholinergic Start: 08-21-2024 End: 12-14-2024 take 1 mL by inhalation four times daily Ipratropium [employer] 0.02 % solution Discontinued 2.5 ML INHALATION Four times daily 300 August 21, 2024 1:00am December 14, 2024 2:16pm Problems Active Problems Problem Classification Problem Date Documented Da te Episodic/Chronic Acute bronchitis (1 source) Acute bronchitis due to other specified organisms Episodic Asthma (20 sources) Asthma; Translations: [Uncomplicated mild persistent asthma] 04-04-2019 Chronic Calculus of urinary tract (3 sources) Kidney stone 04-04-2019 Episodic Cancer of bladder (17 sources) Malignant tumor of urinary bladder; Translations: [...] Translations: [Paroxysmal atrial fibrillation] Onset: 11-30-2022 Chronic Comment on above: Echo: LVEF 55%, norm al RV size/function, RVSP 32 - 09/2024 Chronic kidney disease (14 sources) Chronic kidney disease stage 3A ; Translations: [Stage 3a chronic kidney disease] 12-11-2023 Chronic Chronic kidney disease (6 sources) Chronic kidney disease; Translations: [CHRONIC KIDNEY DISEASE STAGE 3A] Onset: 11-30-2022 Chronic obstructive pulmonary disease and bronchiectasis (14 sources) Chronic obstructive lung disease; Translations: [Simple chronic bronchitis] 04-04-2019 Chronic Comment on above: CXR: normal - ,PFT: FEV1 39, FEV1/FVC 49, air trapping w/ bronchodilator response of 17%. Conduction disorders (16 sources) Cardiac pacemaker in [...] stenosis of bilateral carotid arteries] Chronic Osteoporosis (12 sources) Age-related osteoporosis without current pathological fracture; Translations: [Senile osteoporosis] Onset: 05-31-2022 Chronic Other aftercare (2 sources) Other long lines operator (current) drug therapy; Translations: [OTH LONGTERM CURRENT DRUG THERAPY] Onset: 12-09-2022 Episodic Other [...] RS] Onset: 06-03-2022 Episodic Other circulatory disease (3 sources) Carotid bruit; Translations: [Other specified symptoms and signs involving the circulatory and respiratory systems] 12-11-2023 Episodic Other diseases of bladder and urethra (1 source) Disorder of bladder; Translations: [Bladder disorder, unspecified] Onset: 08-11-2023 Chronic Other diseases of bladder and urethra (1 source) Lesion of bladder 08-11-2023 Chronic Other lower respiratory disease (2 sources) Cough; Translations: [Cough] 06-15-2024 Episodic Other nutritional; endocrine; and metabolic disorders (2 sources) Hypercalcemia; Translations: [Hypercalcemia] 03-18-2025 Chronic Other nutritional; endocrine; and metabolic disorders (2 sources) Abnormal weight loss; Translations: [Abnormal weight loss] 12-14-2024 Episodic Other nutritional; endocrine; and metabolic disorders (2 sources) Decrease in appetite; Translations: [Anorexia] 12-14-2024 Episodic Residual codes; unclassified (1 source) Procedure [...] Onset: 03-19-2024 Episodic Other aftercare (1 source) [facility] (current) use of aspirin; Translations: [CLOTHES SHAKER CURRENT USE OF ASPIRIN] Onset: 08-03-2022 Episodic [...] Value Interpretation Reference Range Facility Office Visiton 03-12-2025 Follow-up visit [id number] Rebecca Hays 1940 F Date Provider Department Center 03/12/2025 JUAN ISLAS CARD [facility] Family History Problem Relation Age of Onset No Known Problems Mother No Known Problems Father Family Status - Relation Status Age at Mother Father Level of Service:41959 [place] OFFICE/OUTPATIENT ESTABLISHED LOW MDM 20 MIN Normal [facility] Basophils Auto (Bld) [#/Vol] Ordered By: Juan José Arce on 01-18-2025 Basophils (Bld) [#/Vol] 0.1 10 3/uL 0.0-0.1 [facility] Basophils/100 WBC Auto (Bld) Ordered By: Juan José Arce on 01-18-2025 Basophils/100 WBC (Bld) 0.9 % 0.2-2.0 F [facility] Eosinophils/100 WBC Auto (Bl d)Ordered By: Juan José Arce on 01-18-2025 Eosinophils/100 WBC (Bld) 2.1 % 0.9-7.0 [facility] Erythrocyte distribution wid th Auto (RBC) [Ratio]Ordered By: Juan José Arce on 01-18-2025 Erythrocyte distribution width (RBC) [Ratio] 13.1 % 11.0-15.0 [facility] Globulin Calc (S) [Mass/Vol] Ordered By: Juan José Arce on 01-18-2025 Globulin (S) [Mass/Vol] 3.5 g/dL F [facility] Glomerular filtration rate ( GFR) estimation in non- AmericanOrdered By: Juan José Arce on 01-18-2025 GFR/1.73 sq M.predicted among non-blacks MDRD (S/P/Bld) [Vol rate/Area] 49 mL/min/{1.73_m2} Low >=60 mL/min/1.73m 2 [facility] Hematocrit Auto (Bld) [Volum e fraction]Ordered By: Juan José Arce on 01-18-2025 Hematocrit (Bld) [Volume fraction] 45.1 % 36.0-48.0 [facility] Hemoglobin [Mass/volume] in BloodOrdered By: Juan José Arce on 01-18-2025 Hemoglobin (Bld) [Mass/Vol] 14.5 g/dL 12.0-16.0 [facility] Laboratory - Chemistry and C hemistry - challengeOrdered By: Juan José Arce on 01-18-2025 Albumin [Mass/Vol] 3.6 g/dL 3.4-5.0 [facility] ALP [Catalytic activity/Vol] 66 U/L 46-116 [facility] ALT [Catalytic activity/Vol] 23 U/L 14-59 [facility] Amylase [Catalytic activity/Vol] 88 U/L 25-115 [facility] AST [Catalytic activity/Vol] 14 U/L Low 15-37 [facility] Bilirubin [Mass/Vol] 0.9 mg/dL 0.2-1.0 [facility] Calcium [Mass/Vol] 10.4 mg/dL High 8.5-10.1 [facility] Chloride [Moles/Vol] 102 mmol/L 98-107 [facility] CO2 [Moles/Vol] 35.8 mmol/L High 21.0-32.0 [facility] Creatinine [Mass/Vol] 1.06 mg/dL High 0.55-1.02 [facility] GFR/1.73 sq M.predicted MDRD (S/P/Bld) [Vol rate/Area] 60 mL/min/{1.73_m2} >=60 mL/min/1.73m 2 [facility] Glucose [Mass/Vol] 127 mg/dL High 74-106 [facility] Lipase [Catalytic activity/Vol] 94.0 U/L High 16.0-77.0 [facility] Potassium [Moles/Vol] 3.6 mmol/L 3.5-5.1 [facility] Protein [Mass/Vol] 7.1 g/dL 6.4-8.2 [facility] Sodium [Moles/Vol] 143 mmol/L 136-145 [facility] TSH Qn 2.599 m[IU]/L 0.358-3.740 [facility] Urea nitrogen [Mass/Vol] 24.0 mg/dL High 7.0-18.0 [facility] Urea nitrogen/Creatinine [Mass ratio] 22.6 mg/mg [facility] Laboratory - Hematology and Cell countsOrdered By: Juan José Arce on 01-18-2025 Immature granulocytes/100 WBC (Bld) 0.1 % 0.0-0.5 [facility] Leukocytes [#/volume] correc crystal for nucleated erythrocytes in Blood by Automated counOrdered By: Juan José Arce on 01-18-2025 WBC corrected for nucl RBC Auto (Bld) [#/Vol] 7.7 10 3/uL 4.0-11.0 [facility] Lymphocytes Auto (Bld) [#/Vo l]Ordered By: Juan José Arce on 01-18-2025 Lymphocytes (Bld) [#/Vol] 2.4 10 3/uL 1.2-3.8 [facility] Lymphocytes/100 WBC Auto (Bl d)Ordered By: Juan José Arce on 01-18-2025 Lymphocytes/100 WBC (Bld) 31.0 % 20.5-60.0 [facility] MCH Auto (RBC) [Entitic mass ]Ordered By: Juan José Arce on 01-18-2025 MCH (RBC) [Entitic mass] 29.2 pg 26.7-34.0 [facility] MCHC Auto (RBC) [Mass/Vol]Or dered By: Juan José Arce on 01-18-2025 MCHC (RBC) [Mass/Vol] 32.2 g/dL 29.9-35.2 [facility] MCV Auto (RBC) [Entitic vol] Ordered By: Juan José Arce on 01-18-2025 MCV (RBC) [Entitic vol] 90.9 fL 81.0-99.0 F [facility] Microalbumin [Mass/volume] i n UrineOrdered By: Juan José Arce on 01-18-2025 Albumin DL <= 20 mg/L (U) [Mass/Vol] 2.8 mg/dL <=30.0 [facility] Monocytes Auto (Bld) [#/Vol] Ordered By: Juan José Arce on 01-18-2025 Monocytes (Bld) [#/Vol] 0.5 10 3/uL 0.3-0.8 [facility] Monocytes/100 WBC Auto (Bld) Ordered By: Juan José Arce on 01-18-2025 Monocytes/100 WBC (Bld) 6.6 % 1.7-12.0 F [facility] Neutrophils Auto (Bld) [#/Vo l]Ordered By: Juan José Arce on 01-18-2025 Neutrophils (Bld) [#/Vol] 4.6 10 3/uL 1.4-6.5 [facility] Neutrophils/100 WBC Auto (Bl d)Ordered By: Juan José Arce on 01-18-2025 Neutrophils/100 WBC (Bld) 59.3 % 43.0-75.0 [facility] No Panel InformationOrdered By: Juan José Arce on 01-18-2025 Eosinophils # (Auto) 0.2 10 3/uL 0.0-0.7 [facility] Immature Granulocyte # (Auto) 0.01 10 3/uL 0.00-0.03 [facility] Urine Random Creatinine 68.33 mg/dL 20.00-300.0 0 [facility] Platelet mean volume Auto (B ld) [Entitic vol]Ordered By: Juan José Arce on 01-18-2025 Platelet mean volume (Bld) [Entitic vol] 9.5 fL 9.5-13.5 [facility] Platelets Auto (Bld) [#/Vol] Ordered By: Juan José Arce on 01-18-2025 Platelets (Bld) [#/Vol] 213 10 3/uL 150-450 [facility] RBC Auto (Bld) [#/Vol]Ordere d By: Juan José Arce on 01-18-2025 RBC (Bld) [#/Vol] 4.96 10 6/uL 4.20-5.40 [facility] Serum or plasma albumin/glob ulin mass ratioOrdered By: Juan José Arce on 01-18-2025 Albumin/Globulin [Mass ratio] 1.0 {ratio} [facility] Serum or plasma anion gap de terminationOrdered By: Juan José Arce on 01-18-2025 Anion gap [Moles/Vol] 8.8 mmol/L [facility] Urine microalbumin/creatinin e mass ratioOrdered By: Juan José Arce on 01-18-2025 Albumin/Creatinine DL <= 20 mg/L (U) [Mass ratio] 40.9 mg/g High 0.0-29.9 [facility] Comment on above: NO MICROALBUMINURIA 0-29 MG/GCLINICAL MICROALBUMINURIA 30-300 MG/GMACROALBUMINURIA >300 MG/G Glomerular filtration rate ( GFR) estimation in non- Americanon 01-10-2025 GFR/1.73 sq M.predicted among non-blacks MDRD (S/P/Bld) [Vol rate/Area] 48 mL/min/{1.73_m2} Low >=60 mL/min/1.73m 2 [facility] Laboratory - Chemistry and C hemistry - challengeon 01-10-2025 Creatinine [Mass/Vol] 1.09 mg/dL High 0.55-1.02 [facility] GFR/1.73 sq M.predicted MDRD (S/P/Bld) [Vol rate/Area] 58 mL/min/{1.73_m2} Low >=60 mL/min/1.73m 2 [facility] Office Visiton 09-25-2024 Follow-up visit [id number] Rebecca Hays 1940 F Date Provider Department Center 09/25/2024 JUAN ISLAS KATEY Seo Family History Problem Relation Age of Onset No Known Problems Mother No Known Problems Father Family Status - Relation Status Age at Mother Father Level of Service:79246 [place] OFFICE/OUTPATIENT ESTABLISHED LOW MDM 20 MIN Normal [facility] Laboratory - Chemistry and C hemistry - challengeon 03-30-2024 Bilirubin Ql (U) Negative [facility] Glucose (U) [Mass/Vol] Negative [facility] Ketones Ql (U) Negative [facility] pH (U) 5 [pH] [facility] Specific gravity (U) [Rel density] 1.010 [facility] Urobilinogen (U) [Mass/Vol] 0.2 mg/dL [facility] Laboratory - Specimen inform ationon 03-30-2024 Appearance (U) cloudy [facility] Color (U) darkyellow [facility] Laboratory - Urinalysison Leukocyte esterase Test strip Ql (U) ++ [facility] Nitrite Ql (U) Negative [facility] Protein Ql (U) ++ [facility] No Panel Informationon 03-30 Urine Occult Blood +[facility] 29on 03-19-2024 29 Addended by: SAVANAH RASCON on: 03/19/2024 02:47 PM Modules accepted: Orders Normal [facility] Office Visiton 03-19-2024 Follow-up visit [id number] Rebecca Hays 1940 F Date Provider Department Center 03/19/2024 [id number] RASCON CARD [facility] Family History Problem Relation Age of Onset No Known Problems Mother No Known Problems Father Family Status - Relation Status Age at Mother Father Level of Service:44103 [place] OFFICE/OUTPATIENT ESTABLISHED MOD MDM 30 MIN Reason for Visit and Comments: Atrial Fibrillation [80] Follow-up [939604] - Atrial fibrillation Normal [facility] Urinalysis - DIPSTICKon 02-0 Appearance (U) cloudy [facility] Other Bilirubin Ql (U) Negative [employer] Other Color (U) yellow [facility] Other Glucose Ql (U) Negative [facility] Other Hemoglobin Ql (U) ++ [employer] Other Ketones Ql (U) Negative [facility] Other Leukocyte esterase Test strip Ql (U) 125++ [facility] Other Nitrite Ql (U) Negative [facility] Other pH (U) 7.5 [pH] [facility] Other Protein Ql (U) 15 [facility] Other Specific gravity (U) [Rel density] 1.005 [facility] Other Urobilinogen (U) [Mass/Vol] 0.2 mg/dL [facility] Other Urinalysis - DIPSTICK [facility] Other CBC AUTO DIFFon 12-03-2022 BASO # 0.1 103/ul Normal 0.0-0.1 [facility] Comment on above: Performed By: #### C BC #### [facility] [address] [place] [address] Dr. Radha Pacheco Basophils/100 WBC (Bld) 1.0 % Normal 0.2-2.0 [facility] Comment on above: Performed By: #### C BC #### [facility] [address] [place] [address] Dr. Radha Pacheco EO # 0.2 103/ul Normal 0.0-0.7 [facility] Comment on above: Performed By: #### C BC #### [facility] [address] [place] [address] Dr. Radha Pacheco Eosinophils/100 WBC (Bld) 2.7 % Normal 0.9-7.0 [facility] Comment on above: Performed By: #### C BC #### [facility] [address] [place] [address] Dr. Radha Pacheco Erythrocyte distribution width (RBC) [Ratio] 13.2 % Normal 11.0-15.0 [facility] Comment on above: Performed By: #### C BC #### [facility] [address] [place] [address] Dr. Radha Pacheco Hematocrit (Bld) [Volume fraction] 43.7 % Normal 36.0-48.0 [facility] Comment on above: Performed By: #### C BC #### [facility] [address] [place] [address] Dr. Radha Pacheco Hemoglobin (Bld) [Mass/Vol] 13.8 g/dL Normal 12.0-16.0 [facility] Comment on above: Performed By: #### C BC #### [facility] [address] [place] [address] Dr. Radha Pacheco IG # 0.01 10e3/ul Normal 0.00-0.03 [facility] Comment on above: Performed By: #### C BC #### [facility] [address] [place] [address] Dr. Radha Pacheco IG % 0.1 % Normal 0.0-0.5 [facility] Comment on above: Performed By: #### C BC #### [facility] [address] [place] [address] Dr. Radha Pacheco LYMPH # 2.6 103/ul Normal 1.2-3.8 [facility] Comment on above: Performed By: #### C BC #### [facility] [address] [place] [address] Dr. Radha Pacheco Lymphocytes/100 WBC (Bld) 37.3 % Normal 20.5-60.0 [facility] Comment on above: Performed By: #### C BC #### [facility] [address] [place] [address] Dr. Radha Pacheco MANUAL DIFF REQ NO Normal [facility] Comment on above: Performed By: #### C BC #### [facility] [address] [place] [address] Dr. Radha Pacheco MCH (RBC) [Entitic mass] 28.5 pg Normal 26.7-34.0 [facility] Comment on above: Performed By: #### C BC #### [facility] [address] [place] [address] Dr. Radha Pacheco MCHC (RBC) [Mass/Vol] 31.6 g/dL Normal 29.9-35.2 [facility] Comment on above: Performed By: #### C BC #### [facility] [address] [place] [address] Dr. Radha Pacheco MCV (RBC) [Entitic vol] 90.3 fL Normal 81.0-99.0 [facility] Comment on above: Performed By: #### C BC #### [facility] [address] [place] [address] Dr. Radha Pacheco MONO # 0.4 103/ul Normal 0.3-0.8 [facility] Comment on above: Performed By: #### C BC #### [facility] [address] [place] [address] Dr. Radha Pacheco Monocytes/100 WBC (Bld) 6.2 % Normal 1.7-12.0 [facility] Comment on above: Performed By: #### C BC #### [facility] [address] [place] [address] Dr. Radha Pacheco NEUT # 3.6 103/ul Normal 1.4-6.5 [facility] Comment on above: Performed By: #### C BC #### [facility] [address] [place] [address] Dr. Radha Pacheco Neutrophils/100 WBC (Bld) 52.7 % Normal 43.0-75.0 [facility] Comment on above: Performed By: #### C BC #### [facility] [address] [place] [address] Dr. Radha Pacheco Platelet mean volume (Bld) [Entitic vol] 9.7 fL Normal 9.5-13.5 [facility] Comment on above: Performed By: #### C BC #### [facility] [address] [place] [address] Dr. Radha Pacheco PLT 240 103/ul Normal 150-450 [facility] Comment on above: Performed By: #### C BC #### [facility] [address] [place] [address] Dr. Radha Pacheco RBC 4.84 106/ul Normal 4.20-5.40 [facility] Comment on above: Performed By: #### C BC #### [facility] [address] [place] [address] Dr. Radha Pacheco WBC 6.9 103/ul Normal 4.0-11.0 [facility] Comment on above: Performed By: #### C BC #### [facility] [address] [place], [place] [address] Dr. Radha Pacheco LIPID PROFILEon 12-03-2022 CHOL-HDL RATIO NORM SEE BELOW Normal [place] Comment on above: Result Comment: 3.3 - 4.4 LOW RISK 4.4 - 7.1 AVERAGE RISK 7.1 - 11.0 MODERATE RISK >11.0 HIGH RISK Performed By: #### B MP, LIPID, ALT #### [facility] [address] [place] [address] [address] Radha Pacheco Cholesterol [Mass/Vol] 145 mg/dL Normal <=200 [facility] Comment on above: Performed By: #### B MP, LIPID, ALT #### [facility] [address] [address] [address] Radha Pacheco Cholesterol in HDL [Mass/Vol] 71 mg/dL Critically high 40-60 [facility] Comment on above: Performed By: #### B MP, LIPID, ALT #### [facility] [address] [address] [address] Radha Pacheco Cholesterol in LDL [Mass/Vol] 56.8 mg/dL Normal [facility] Comment on above: Performed By: #### B MP, LIPID, ALT #### [facility] [address] [address] [address] Radha Pacheco Cholesterol.total/Ana sterol in HDL [Mass ratio] 2.0 {ratio} Normal [facility] Comment on above: Performed By: #### B MP, LIPID, ALT #### [facility] [address] [address] [address] Radha Pacheco HDL NORMAL > or = 60 mg/dl - LOW CARDIOVASCULAR RISK <40 mg/dl - HIGH CARDIOVASCULAR RISK Normal [facility] Comment on above: Performed By: #### B MP, LIPID, ALT #### [facility] [address] [address] [address] Radha Pacheco LDL CALC NORMAL SEE BELOW Normal [facility] Comment on above: Result Comment: <100 mg/dl OPTIMAL 100 - 129 mg/dl NEAR OR ABOVE OPTIMAL 130 - 159 mg/dl BORDERLINE HIGH 160 - 189 mg/dl HIGH >190 mg/dl VERY HIGH Performed By: #### B MP, LIPID, ALT #### [facility] [address] [address] [address] Radha Pacehco Triglyceride [Mass/Vol] 86 mg/dL Normal <=150 T [facility] Comment on above: Performed By: #### B MP, LIPID, ALT #### [facility] [address] [address] [address] Radha Pacheco VLDL CALC 17.2 mg/dL Normal [facility] Comment on above: Performed By: #### B MP, LIPID, ALT #### [facility] [address] [place] [address] Dr. Radha Pacheco PROF CHEM 8 (BAS METB)on Anion gap [Moles/Vol] 9.1 mmol/L Normal [facility] Comment on above: Performed By: #### B MP, LIPID, ALT #### [facility] [address] [place] [address] Dr. Radha Pacheco Calcium [Mass/Vol] 10.0 mg/dL Normal 8.5-10.1 [facility] Comment on above: Performed By: #### B MP, LIPID, ALT #### [facility] [address] [place] [address] Dr. Radha Pacheco Chloride [Moles/Vol] 103 mmol/L Normal 98-107 [facility] Comment on above: Performed By: #### B MP, LIPID, ALT #### [facility] [address] [place] [address] Dr. Radha Pacheco CO2 [Moles/Vol] 32.2 mmol/L Critically high 21.0-32.0 [facility] Comment on above: Performed By: #### B MP, LIPID, ALT #### [facility] [address] [place] [address] Dr. Radha Pacheco Creatinine [Mass/Vol] 0.97 mg/dL Normal 0.55-1.02 [facility] Comment on above: Performed By: #### B MP, LIPID, ALT #### [facility] [address] [address] [address] Radha Pacheco EGFR-AF BOLIVIAN >60 Normal >=60 [facility] Comment on above: Performed By: #### B MP, LIPID, ALT #### [facility] [address] [address] [address] Radha Pacheco EGFR-NON AF BOLIVIAN 55 mL/min/1.73m2 Critically low >=60 [facility] Comment on above: Performed By: #### B MP, LIPID, ALT #### [facility] [address] [place] [address] [address] Radha Pacheco Glucose [Mass/Vol] 108 mg/dL Critically high 74-106 [facility] Comment on above: Performed By: #### B MP, LIPID, ALT #### [facility] [address] [address] [address] Radha Pacheco Potassium [Moles/Vol] 4.3 mmol/L Normal 3.5-5.1 [facility] Comment on above: Performed By: #### B MP, LIPID, ALT #### [facility] [address] [address] [address] Radha Pacheco Sodium [Moles/Vol] 140 mmol/L Normal 136-145 [facility] Comment on above: Performed By: #### B MP, LIPID, ALT #### [facility] [address] [address] [address] Radha Pacheco Urea nitrogen [Mass/Vol] 20.0 mg/dL Critically high 7.0-18.0 [facility] Comment on above: Performed By: #### B MP, LIPID, ALT #### [facility] [address] [place] [address] [address] Radha Pacheco Urea nitrogen/Creatinine [Mass ratio] 20.6 mg/mg Normal [facility] Comment on above: Performed By: #### B MP, LIPID, ALT #### [facility] [address] [address] [address] Radha Pacheco [facility] 12-03-2022 ALT [Catalytic activity/Vol] 25 U/L Normal 14-59 [facility] Comment on above: Performed By: #### B MP, LIPID, ALT #### [facility] [address] [place] [address] [address] Radha Pacheco UA RANDOM W/MICROSCOPICon BACTERIA TRACE Abnormal NONE SEEN [facility] Comment on above: Performed By: #### U AMIC #### [facility] [address] [address] [address] Radha Pacheco Bilirubin Ql (U) Negative Normal NEGATIVE [facility] Comment on above: Performed By: #### U AMIC #### [facility] [address] [address] [address] Radha Pacheco CAST NONE SEEN Normal NONE SEEN [facility] Comment on above: Performed By: #### U AMIC #### [facility] [address] [place] [address] Dr. Radha Pacheco Clarity (U) CLEAR Normal CLEAR [facility] Comment on above: Performed By: #### U AMIC #### [facility] [address] [place] [address] [address] Radha Pacheco Color (U) LT. YELLOW Normal YELLOW [facility] Comment on above: Performed By: #### U AMIC #### [facility] [address] [address] [address] Radha Pacheco Crystals LM Nom (Urine sed) NONE SEEN Normal NONE SEEN [facility] Comment on above: Performed By: #### U AMIC #### [facility] [address] [address] [address] Radha Pacheco Epithelial cells LM Ql (Urine sed) FEW Abnormal NONE SEEN /RARE [facility] Comment on above: Performed By: #### U AMIC #### [facility] [address] [place] [address] [address] Radha Pacheco Glucose Ql (U) Negative Normal NEGATIVE [facility] Comment on above: Performed By: #### U AMIC #### [facility] [address] [place] [address] Dr. Radha Pacheco Hemoglobin Ql (U) Negative Normal NEGATIVE [facility] Comment on above: Performed By: #### U AMIC #### [facility] [address] [place] [address] Dr. Radha Pacheco Ketones Ql (U) Negative Normal NEGATIVE [facility] Comment on above: Performed By: #### U AMIC #### [facility] [address] [place] [address] Dr. Radha Pacheco LEUKOCYTES SMALL Abnormal NEGATIVE [facility] Comment on above: Performed By: #### U AMIC #### [facility] [address] [place] [address] [address] Radha Pacheco MUCOUS NONE SEEN Normal NONE SEEN [facility] Comment on above: Performed By: #### U AMIC #### [facility] [address] [place] [address] Dr. Radha Pacheco Nitrite Ql (U) Negative Normal NEGATIVE [facility] Comment on above: Performed By: #### U AMIC #### [facility] [address] [place] [address] Dr. Radha Pacheco pH (U) 7.5 [pH] Normal 5-9 [facility] Comment on above: Performed By: #### U AMIC #### [facility] [address] [place] [address] Dr. Radha Pacheco RBC NONE SEEN Abnormal 0-2 [facility] Comment on above: Performed By: #### U AMIC #### [facility] [address] [place] [address] Dr. Radha Pacheco SPEC GRAVITY 1.015 Normal 1.005-<=1.02 5 [facility] Comment on above: Performed By: #### U AMIC #### [facility] [address] [place] [address] Dr. Radha Pacheco UA PROTEIN Negative Normal NEGATIVE/ TRACE [facility] Comment on above: Performed By: #### U AMIC #### [facility] [address] [place] [address] Dr. Radha Pacheco Urobilinogen Qn (U) 0.2 {Teodora'U}/dL Normal 0.2 - 1. 0 [facility] Comment on above: Performed By: #### U AMIC #### [facility] [address] [place], [place] [address] Dr. Radha Pacheco WBC 2-5 Abnormal NONE SEEN [facility] Comment on above: Performed By: #### U AMIC #### [facility] [address] [place], [place] [address] Dr. Radha Pacheco XR CHEST 1 Von 07-31-2022 XR CHEST 1 V EXAM: XR CHEST 1 V HISTORY: COUGH COMPARISON: 11/20/2021 TECHNIQUE: Single view of the chest. FINDINGS: Left chest cardiac device and leads noted. Unremarkable cardiomediastinal silhouette. No focal consolidation, pleural effusion, pulmonary congestion or pneumothorax. IMPRESSION: No acute findings. Electronically authenticated by: ANTONIO CUADRA Date: 2022-07-31 10:49 Normal [facility] US CAROTID ART BILon 022 US [...] by: SHELLIE PATEL Date: 2022-06-01 06:20 Normal [facility] XR DEXA BONE DENSITYon 05-31 XR DEXA [...] by: SHELLIE PATEL Date: 2022-05-31 15:14 Normal [facility] Vital Signs Date Time Vital Sign Value Performing Clinician Facility 03-20-2025 14:34-0400 Body height 157.48 cm Juan José Ball DO Work Phone: [facility] 03-20-2025 14:34-0400 Body mass index (BMI) [Ratio] 18.6 kg/m2 Juan José Ball DO Work Phone: [facility] 03-20-2025 14:34-0400 Body weight 46.32 kg Juan José Ball DO Work Phone: [facility] 03-20-2025 14:34-0400 Diastolic blood pressure 75 mm[Hg] Juan José Ball DO Work Phone: [facility] 03-20-2025 14:34-0400 Heart rate 61 /min Juan José Ball DO Work Phone: [facility] 03-20-2025 14:34-0400 Respiratory rate 12 /min Juan José Ball DO Work Phone: [facility] 03-20-2025 14:34-0400 Systolic blood pressure 116 mm[Hg] Juan José Ball DO Work Phone: [facility] 06-15-2024 13:50-0500 Body mass index (BMI) [Ratio] 20.5 kg/m2 [facility] 06-15-2024 13:50-0500 Diastolic blood pressure 74 mm[Hg] [facility] 06-15-2024 13:50-0500 Heart rate 63 /min [facility] 06-15-2024 13:50-0500 Systolic blood pressure 121 mm[Hg] [facility] 06-14-2024 07:26-0500 Body height 157.48 cm [facility] 06-14-2024 07:26-0500 Body weight 50.8 kg [facility] 08-11-2023 13:31-0500 Blood Pressure Location Yandy Lue [facility] 08-11-2023 13:31-0500 Diastolic blood pressure 55 mm[Hg] Yandy Lue [facility] 08-11-2023 13:31-0500 Heart rate 106 /min Yandy Lue [facility] 08-11-2023 13:31-0500 Systolic blood pressure 100 mm[Hg] Yandy Lue [facility] 06-14-2023 14:00-0500 Body height 157.48 cm Juan José Ball Other [facility] Other 06-14-2023 14:00-0500 Body mass index (BMI) [Ratio] 21.32 kg/m2 Juan José Ball Other [facility] Other 06-14-2023 14:00-0500 Body weight 52.89 kg Juan José Ball Other [facility] Other 06-14-2023 14:00-0500 Diastolic blood pressure 85 mm[Hg] Juan José Ball Other [facility] Other 06-14-2023 14:00-0500 Respiratory rate 12 /min Juan José Ball Other [facility] [employer] Other 06-14-2023 14:00-0500 Systolic blood pressure 130 mm[Hg] Juan José Ball Other [facility] Other 03-18-2023 13:30-0400 Body height 157.48 cm Juan José Ball Other [facility] Other 03-18-2023 13:30-0400 Body mass index (BMI) [Ratio] 21.29 kg/m2 Juan José Ball Other [facility] Other 03-18-2023 13:30-0400 Body weight 52.8 kg Juan José Ball Other [facility] Other 03-18-2023 13:30-0400 Diastolic blood pressure 83 mm[Hg] Juan José Ball Other [facility] Other 03-18-2023 13:30-0400 Respiratory rate 12 /min Juan José Ball Other [facility] Other 03-18-2023 13:30-0400 Systolic blood pressure 147 mm[Hg] Juan José Ball Other [facility] Other 01-19-2023 11:15-0400 Heart rate 70 /min Yandy Ragsdale [facility] 11-16-2022 14:30-0400 Body height 157.48 cm Juan José Ball Other [facility] Other 11-16-2022 14:30-0400 Body mass index (BMI) [Ratio] 22.06 kg/m2 Juan José Ball Other [facility] Other 11-16-2022 14:30-0400 Body weight 54.7 kg Juan José Ball Other [facility] Other 11-16-2022 14:30-0400 Diastolic blood pressure 78 mm[Hg] Juan José Ball Other [facility] Other 11-16-2022 14:30-0400 Respiratory rate 12 /min Juan José Ball Other [facility] Other 11-16-2022 14:30-0400 Systolic blood pressure 138 mm[Hg] Juan José Arce Other [facility] Other 11-23-2021 13:34-0400 Blood Pressure Location Mj Mendenhall Jr. [facility] 11-23-2021 13:34-0400 Diastolic blood pressure 98 mm[Hg] Mj Abdirashid Lundberg [facility] 11-23-2021 13:34-0400 Heart rate 67 /min Mj Mendenhall Jr. [facility] 11-23-2021 13:34-0400 Systolic blood pressure 150 mm[Hg] Mj Abdirashid Lundberg [facility] Encounters Encounter Date Encounter Type Care Provider Facility Start: 03-20-2025 End: 03-20-2025 ambulatory Juan José Arce DO Work Phone: [facility] Work Phone: Start: 03-20-2025 End: 03-20-2025 Patient encounter procedure Juan José Claude -[facility] [employer] [facility] Work Phone: Start: 03-12-2025 End: 03-12-2025 [facility] Start: 01-18-2025 Non-patient / Non-visit Juan José hawkins DO -[facility] [employer] Work Phone: Start: 01-10-2025 Non-patient / Non-visit Zulay sarmiento MD -[facility] Work Phone: Start: 11-20-2024 End: 11-20-2024 ambulatory [facility] Start: 09-25-2024 End: 09-25-2024 ambulatory [facility] Start: 08-14-2024 End: 08-14-2024 ambulatory [facility] Start: 06-15-2024 Patient encounter procedure Juan José Arce DO Work Phone: [facility] Start: 06-15-2024 End: 06-15-2024 ambulatory [facility] Work Phone: Start: 06-15-2024 End: 06-15-2024 Patient encounter procedure [facility] Work Phone: Start: 06-07-2024 Non-patient / Non-visit [facility] Work Phone: Start: 03-30-2024 End: 03-30-2024 ambulatory [facility] Work Phone: Start: 03-30-2024 End: 03-30-2024 Patient encounter procedure [facility] Work Phone: Start: 03-19-2024 End: 03-19-2024 ambulatory [facility] Start: 09-02-2023 End: 09-02-2023 ambulatory Jua Njosé Claude Other [facility] Other Start: 09-02-2023 Nursing evaluation o f patient and report Juan José Arce [facility] Start: 08-11-2023 End: 08-11-2023 ambulatory Yandy Ragsdale Facility:[facility] Start: 08-11-2023 End: 08-11-2023 Patient encounter procedure Yandy Ragsdale [facility] Start: 07-04-2023 End: 07-04-2023 ambulatory Juan José Ball Other [facility] Other Start: 07-04-2023 Telephone encounter Juan José Ball [facility] Start: 06-30-2023 End: 06-30-2023 ambulatory Juan José Ball Other [facility] Other Start: 06-30-2023 Telephone encounter Juan José Ball [facility] Start: 06-14-2023 End: 06-14-2023 ambulatory Juan José Ball Other [facility] Other Start: 06-14-2023 Patient encounter procedure Juan José Ball [facility] Start: 05-06-2023 End: 05-06-2023 ambulatory Juan José Ball Other [facility] Other Start: 05-06-2023 Telephone encounter Juan José Ball [facility] Start: 05-04-2023 End: 05-04-2023 ambulatory Juan José Ball Other [facility] Other Start: 05-04-2023 Office outpatient vi sit 15 minutes Juan José Ball [facility] Start: 03-18-2023 End: 03-18-2023 ambulatory Juan José Ball Other [facility] Other Start: 03-18-2023 Office outpatient vi sit 25 minutes Juan José Ball [facility] Start: 01-31-2023 End: 01-31-2023 ambulatory Juan José Ball Other [facility] Other Start: 01-31-2023 Telephone encounter Juan José Ball [facility] Start: 01-19-2023 End: 01-19-2023 Patient encounter procedure Yandy Ragsdale [facility] Start: 12-07-2022 End: 12-07-2022 ambulatory Juan José Ball Other [facility] Other Start: 12-07-2022 Telephone encounter Juan José Arce [facility] Start: 12-03-2022 End: 12-04-[address] JUAN JOSÉ ARCE Facility:[facility] Start: 11-16-2022 End: 11-16-2022 ambulatory Juan José Arce Other [facility] Other Start: 11-16-2022 Office outpatient vi sit 25 minutes Juan José Arce [facility] Start: 07-31-2022 End: 07-31-[address] JUAN JOSÉ ARCE Facility:[facility] Start: 06-04-[address] JUAN JOSÉ ARCE Facili ty:[facility] Start: 05-31-2022 End: 06-01-[address] JUAN JOSÉ ARCE Facility:[facility] Start: 11-23-2021 End: 11-23-2021 Patient encounter procedure Mj Mendenhall Jr. [facility] Start: 05-10-2017 End: 05-11-2017 Patient encounter procedure JUAN JOSÉ ARCE Facility:[facility] Procedures Date Procedure Procedure Detail Performing Clinician [...] Fulguration Mj Mendenhall Jr. Start: 02-14-2013 Cysto/TURBT, Hawthorne B ladder bx & fulguration Mj Mendenhall [...] lic 2000 panel - Serum or Plasma [facility] enter XR Chest 2 Views [facility] Immunizations Immunization Date Immunization Notes Care Provider Fa meron 06-15-2024 influenza, high dose seasonal, preservative-free [facility] 06-14-2023 influenza, high dose seasonal, preservative-free Juan José Arce Other [employer] [facility] [employer] Other 06-14-2023 influenza virus vaccine, unspecified formulation [facility] 05-18-2022 influenza virus vaccine, split virus (incl. purified surface antigen) Juan José Arce Other [employer] [facility] Other 05-18-2022 influenza virus vaccine, unspecified formulation Yandy Jn [facility] 09-29-2021 SARS-CoV-2 (COVID-19 ) mRNA-1273 vaccine Mj Mendenhall JrOdalis [facility] 05-05-2021 influenza virus vaccine, split virus (incl. purified surface antigen) Juan José Arce Other [facility] Other 05-05-2021 influenza virus vaccine, unspecified formulation [facility] 09-29-2020 SARS-CoV-2 (COVID-19 ) mRNA-1273 vaccine Mj Mendenhall [facility] 09-01-2020 SARS-CoV-2 (COVID-19 ) mRNA-1273 vaccine Mj Mendenhall [facility] 05-19-2020 influenza virus vaccine, split virus (incl. purified surface antigen) Juan José Arce Other [facility] Other 05-19-2020 influenza virus vaccine, unspecified formulation [facility] 05-21-2019 influenza virus vaccine, split virus (incl. purified surface antigen) Juan José Arce Other [facility] Other 05-21-2019 influenza virus vaccine, unspecified formulation [facility] 05-02-2018 influenza virus vaccine, split virus (incl. purified surface antigen) Juan José Arce Other [facility] Other 05-02-2018 influenza virus vaccine, unspecified formulation Yandy Ragsdale [facility] 05-16-2017 influenza virus vaccine, split virus (incl. purified surface antigen) Juan José Arce Other [facility] Other 05-16-2017 influenza virus vaccine, unspecified formulation Yandy Ragsdale [facility] 05-21-2016 influenza virus vaccine, split virus (incl. purified surface antigen) Juan José Arce Other [facility] Other 05-21-2016 influenza virus vaccine, unspecified formulation Yandy Ragsdale [facility] 05-13-2015 influenza virus vaccine, split virus (incl. purified surface antigen) Juan José Arce Other [facility] Other 05-13-2015 influenza virus vaccine, unspecified formulation [facility] 05-13-2015 pneumococcal conjuga te vaccine, 13 valent Juan José Arce Other [facility] 05-24-2014 tetanus and diphther ia toxoids, adsorbed, preservative free, for adult use (5 Lf of tetanus toxoid and 2 Lf of diphtheria toxoid) Juan José Arce Other [facility] 05-21-2013 pneumococcal polysaccharide vaccine, 23 valent Juan José Arce Other [facility] 05-21-2013 tetanus and diphther ia toxoids, adsorbed, preservative free, for adult use (5 Lf of tetanus toxoid and 2 Lf of diphtheria toxoid) Juan José Claude Other [facility] Payers Date Payer Category Payer Medicare [id number] 2021 [employer] ( and others) [id number] 2016 [employer] ( and others) [id number] 1959 [employer] ( and others) [id number] 1959 Private Health Insurance [id number] 1959 Self-pay 1940 Unknown [id number] 1940 Unknown [id number] 1940 Unknown [id number] 1940 Unknown [id number] 1940 Unknown [id number] 1940 Unknown [id number] Social History Date Type Detail Facility Start: 11-23-2021 End: 08-11-2023 Tobacco smoking status Never smoked tobacco (finding) [facility] Tobacco smoking status Never [facility] Sex Assigned At Female [facility] Start: 1940 Sex Assigned At Female F [facility] Tobacco smoking stat [facility] Unknown if ever smoked [facility] Work Phone: Start: 06-15-2024 Sex Female (finding) [facility] Functional Status Date Assessment Result Facility 08-11-2023 Functional Status N/A [facility] 01-19-2023 Functional Status N/A [facility] Clinical Notes 11-23-2021 to 03-12-2025 Note Date & Type Note Facility 03-12-2025 Note [facility] Consult Note Reason for visit: follow up atrial flutter, PAF, hypertension, and device check 03/12/25 Patient is here today for a 6 month follow up. Patient states she feels jose yucky, her asthma has been acting up, fatigue. Patient denies chest pain, palpitations/racing heart, leg swelling. Patient denies any cardiac complaints at this time. Device check reveals AF breakthrough with 15min 09/25/24 Patient here for 6 mo follow [...] chest pain. HPI: Rebecca Hays is a 85 y.o. year old with past medical history [...] flutter or fib EKG 11/17/2018 a sensed unga conduction 05/10/2017 AV sequential pacing 12/03/2016 shows sinus rhythm 12/08/2015 sinus rhythm 05/12/2015 shows sinus rhythm Device check that was performed on 12/02/2020 reveals a [employer] Accolade device that was implanted on [...] / REMOVE PACEMAKER TUBAL LIGATION SH: Social Drivers of Health Tobacco Use: Low Risk (03/12/2025) Patient History Smoking Tobacco Use: Never Smokeless Tobacco Use: Never Passive Exposure: Not on file Alcohol Use: Not on file Financial Resource Strain: Not on file Food Insecurity: Not on file Transportation Needs: Not on file Physical Activity: Not on file Stress: Not on file Social Connections: Not on file Intimate Partner Violence: Unknown (09/22/2023) [place] Safety & Environment Fear of Current or [...] Povidone-Iodine Other Sulfa (Sulfonamide Antibiotics) Other Weight: 45.4kg Visit Vitals BP 112/70 (BP Location: Right arm, Patient Position: Sitting) Pulse 60 Ht 1.575 m (5' 2 ) Wt 45.4 kg (100 lb) SpO2 92% BMI 18.29 kg/m??? Smoking Status Never BSA 1.41 m??? Meds: Current Outpatient Medications on File Prior to Visit Medication Sig Dispense Refill aspirin 81 mg EC tablet in the morning. atorvastatin (Lipitor) 40 mg tablet atorvastatin 40 mg tablet TAKE 1 TABLET DAILY IN EVENING lisinopriL-hydrochlorothiazide 10-12.5 mg tablet lisinopril 10 mg-hydrochlorothiazide 12.5 mg tablet TAKE 1 TABLET BY MOUTH DAILY montelukast (Singulair) 10 mg tablet montelukast 10 mg tablet TAKE 1 TABLET BY MOUTH ROSEMARIE (more content not included)... [facility] 09-25-2024 Note [facility] Consult [facility] Reason [...] flutter or fib EKG 11/17/2018 a sensed unga conduction 05/10/2017 AV sequential pacing 12/03/2016 shows sinus rhythm 12/08/2015 sinus rhythm 05/12/2015 shows sinus rhythm Device check that was performed on 12/02/2020 reveals a [employer] Accolade device that was implanted on [...] on file Intimate Partner Violence: Unknown (09/22/2023) [place] Safety [place] Fear of Current or [...] on file prior (more content not included)... [facility] 03-19-2024 Note [place] [facility] - [facility] Subjective Rebecca Hays is a [...] interval 449 ms EKG: Echo: 08/02/2023 at [facility] Stress test: 12/15/2015 Carotid Doppler study 06/17/2023 Cardiac cath: Event Monitor: Cardiac MRI: CX ray: Assessment/Plan Paroxysmal atrial flutter with degeneration at times to A-fib, maintaining normal sinu (more content not included)... [facility] 09-02-2023 Evaluation note Encounter Date Diagnosis Assessment Notes Sep, Dysuria (ICD-10 - R30.0) [facility] Other 12-05-2023 Hospital Discharge instructions Follow Up Care 07/05/2023 15:39:04 With:Jn MCCRARY, Yandy Martínez, URL, URO Address: When:Within 1 Year(s) Comments:w/Cysto/Cytology [facility] [place] 12-04-2023 Evaluation note* Encounter Date Diagnosis Assessment Notes Treatment Notes Treatment Clinical Notes Jul, Paroxysmal atrial fibrillation (ICD-10 - I48.0) [facility] Other 11-30-2023 Evaluation note* Encounter Date Diagnosis Assessment Notes Treatment Notes Treatment Clinical Notes Jun, Paroxysmal atrial fibrillation (ICD-10 - I48.0) [facility] Other 11-14-2023 Evaluation note* Encounter Date Diagnosis [...] are maintaining regular scheduled appts with their lay brother. No bleeding complications Jun, Mild persistent asthma, [...] patient on monthly SBE and yearly mammograms. [facility] Other 10-04-2023 Evaluation note* Encounter Date Diagnosis [...] in public places for complete 10 days [facility] Other 08-18-2023 Evaluation note* Encounter Date Diagnosis [...] are maintaining regular scheduled appts with their lay brother. Mar, Elevated cholesterol (ICD-10 - E78.00) Instructed [...] pacemaker (ICD-10 - Z95.0) Continue PM checks. [facility] Other 07-03-2023 Evaluation note* Encounter Date Diagnosis Assessment Notes Treatment Notes Treatment Clinical Notes Jan, Primary hypertension (ICD-10 - I10) [facility] Other 06-21-2023 Hospital Discharge instructions Patient Education [...] if anything looks unusual. Women with a avdhqi-ahwv-xcehme risk for skin cancer may want to see a medicaid collection specialist (tumblers supervisor) for an annual body check. What are the benefits of screening? Cancer screening is done to look for cancer in the very early stages, before it spreads and becomesharder to treat and before you would start to notice symptoms. Finding cancer early improves the chances of successful treatment. It may save your life. Where to find more information [place] [employer]: www.cancer.org Centers for Disease Control and Prevention: www.cdc.gov National Cancer [place]: www.cancer.gov U.S. Department of Health and Human [...] provider. Document Revised: 12/14/2021 Document Reviewed: 06/13/2020 [email or web address] Patient Education 2022 [employer]. Follow Up Care 11/03/2022 13:49:34 With:Jn MCCRARY, Yandy Martínez, URL, URO Address: [address] [place] [phone] When:Within 3 Month(s) Comments:CTU [facility] 04-18-2023 Evaluation note* Encounter Date Diagnosis [...] are maintaining regular scheduled appts with their lay brother. Oct, Elevated cholesterol (ICD-10 - E78.00) Diet [...] High risk medication use (ICD-10 - Z79.899) [facility] Other 04-25-2022 Hospital Discharge instructions Patient Education [...] including vitamins, herbs, eye drops, creams, and kmjc-vbm-vqyudzw medicines. Any problems you or family members [...] provider tells you to take them. ?Taking xfxy-zmq-hjcguvy medicines, vitamins, herbs, and supplements. Follow instructions [...] Follow these instructions at home: Medicines Take rjsy-awd-ixzrtdk and prescription medicines only as told by [...] 07/15/2001 Document Revised: 07/10/2019 Document Reviewed: 07/10/2019 [email or web address] Patient Education 2020 [employer]. Follow Up Care 11/03/2021 15:16:19 With:Abdirashid Lundberg MD, Mj Hawkins, URO Address: [facility] [address], [place] [address]- When:11/23/2022 Comments:Cysto [facility] 04-25-2022 Evaluation + Plan note Diagnostic Tests Pending * Urine Cytology ([facility]) 11/23/21 [facility] Evaluation noteNo InformationNort i.TV Other Evaluation noteNo assessment information available [facility] Work Phone: Evaluation note* Diagnosis Onset Date Resolution Status Admit Date Asthma acute March 20 2:28pm Atrial fibrillation acute Augus t 2024 2:28pm Chronic kidney disease acute Au roc 2024 2:28pm Decreased appetite acute March 20, 2025 2:28pm Hypercalcemia acute March 2:28pm Hypercholesterolemia acute Augu st 2024 2:28pm Hypertension acute March 20, 2025 2:28pm 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 acute March 20 2:28pm Weight loss, abnormal acute Aug ust 2024 2:28pm [facility] Work Phone: History general Narrative - Reported* Type Description Date [...] W/ BLADDER Hospitalization History SEE SURGICAL HX [facility] Other History general Narrative - Reported* Type Description Date Surgical History CARDIAC PACEMAKER/DEFIBRILLATOR 2010 Surgical History APPENDECTOMY Surgical History CYSTO W/ BLADDER Hospitalization History SEE SURGICAL HX [facility] Other History general Narrative - Reported* Type Description Date [...] CYSTO W/ BLADDER Hospitalization History SEE SURGICAL [facility] Other Hospital course Narrative No data available for this section [facility] Progress note No data available for this section [facility] reason for referral (narrative)No reason for referral [facility] Work Phone: Summary Purpose Family History No Family History Records FoundNo Family History Records Found No data available for this section No Family History Records FoundNo Family History Records Found Advance Directives Advance Directive Response Recorded Date/ Time Advance Directives No November 29, 2017 3:03pm Advance Directive Response Recorded Date/ Time Advance Directives No November 29, 2017 2:03pm Chief Complaint and Reason for Visit Chief Complaint UA, Burning Chief Complaint Admit Date UA, Burning March 30, 2024 11 :42am CC Adult Risk Stratification June 11:14am WELLNESS June 15, 2024 1:20pm Chief Complaint Admit Date 3 month f/u March 20, 2025 2: 28pm Reason for Visit Admit Date Asthma March 20, 2025 2: 28pm Atrial fibrillation March 20, 2025 2: 28pm Chronic kidney disease March 20, 2025 2:28pm Decreased appetite March 20, 2025 2: 28pm Hypercalcemia March 20, 2025 2: 28pm Hypercholesterolemia March 20, 2025 2 :28pm Hypertension March 20, 2025 2: 28pm Malignant neoplasm of overlapping sites of bladder March 20, 2025 2:28pm Weight loss, abnormal March 20, 2025 2:28pm Additional Source Comments INFORMATION SOURCE (unrecogn ized section and content) DATE CREATED AUTHOR 07/03/2020 [facility] DATE CREATED AUTHOR AUTHOR'S ORGANIZ ATION 12/10/2022 [facility] [place] [facility] DATE CREATED AUTHOR AUTHOR'S ORGANIZ ATION 08/25/2024 [facility] DATE CREATED AUTHOR AUTHOR'S ORGANIZ ATION 03/13/2025 [facility] REASON FOR VISIT (unrecogniz ed section and content) 6 MONTH FOLLOW UPLab Results refill4 month Follow upCOVID-Positivemucus chest congestionWellnessRefillrefillUA- Burning Patient Care team informatio n (unrecognized section and content) Team Status: Active Member Role Status Dates Juan José Arce DO Primary Care Provider Active Team Status: Active Member Role Status Dates Juan José Arce DO Primary Care Provider Active Start: January 10, 2025 Zulay Pacheco MD Attending Provider Active S tart: January 10, 2025 Team Status: Active Member Role Status Dates Juan José Arce DO Primary Care Provider Active Start: January 18, 2025 Juan José Arce DO Attending Provider Active Sta rt: January 18, 2025 Team Status: Inactive Member Role Status Dates Juan José Arce DO Primary Care Provider Active Start: March 20, 2025 End: March 20, 2025 Juan José Arce DO Attending Provider Active Sta rt: March 20, 2025 End: March 20, 2025 Team Status: Active Member Role Status Dates Juan José Arce DO Primary Care Provider Active Team Status: Inactive Member Role Status Dates Juan José Arec DO Primary Care Provide r, Attending Provider Active Start: March 30, 2024 End: March 30, 2024 Team Status: Active Member Role Status Dates Juan José Ball , DO Primary Care Provide r, Attending Provider Active Start: June 07, 2024 Team Status: Inactive Member Role Status Dates Juan José Arce , DO Primary Care Provide r, Attending Provider Active Start: June 15, 2024 End: June 15, 2024 Team Status: Active Member Role Status Dates Juan José Arce , DO Primary Care Provider Active Start: January 10, 2025 Zulay Pacheco MD Attending Provider Active S tart: January 10, 2025 Team Status: Active Member Role Status Dates Juan José Arce , DO Primary Care Provider Active Start: January 18, 2025 Juan José Arce , DO Attending Provider Active Sta rt: January 18, 2025 Team Status: Inactive Member Role Status Dates Juan José Arce , DO Primary Care Provider Active Start: March 20, 2025 End: March 20, 2025 Juan José Arce , DO Attending Provider Active Sta rt: March 20, 2025 End: March 20, 2025 Goals (unrecognized section and content) Goals may [...] BE BASED ON THE PRIMARY CLINICAL RECORDS. [employer] [facility]. provides no warranty or guarantee of the accuracy or completeness of information in this document.
--- NOTE | 2025-04-16 14:29 | CT_ITS ---
The [address] [address] Patient Name: TESSIE EL MRN: [id number] date: 1940 Sex: F Assigned Patient Location: LAB Current Patient Location: Accession/Order Number: [id number] Exam Date: 04/16/2025 15:00 Report Date: 04/17/2025 08:48 At the request of: EUFEMIA CALVO DO Procedure: CT chest w con CT CHEST WITH INTRAVENOUS CONTRAST: CLINICAL HISTORY: Dyspnea and chronic cough R06.00 COMPARISON: None TECHNIQUE: Spiral images were obtained through the chest following intravenous administration of 100 mL of Omnipaque 300. Images were reviewed using both narrow and wide window settings. This CT exam was performed using one or more following dose reduction techniques: Automated exposure control, adjustment of the mA and/or kV according to patient size, or use of iterative reconstruction technique. FINDINGS: A left-sided pacemaker is present. The heart is top normal in size. There is no pericardial effusion. Minor coronary disease is seen. There is reflux of contrast into the IVC. The ascending aorta is slightly dilated with diameter 4.2 cm. No dissection is seen. There is atherosclerotic plaque at the aortic arch, descending aorta and proximal great vessels. There is no pathologic mediastinal or hilar lymphadenopathy. The bony structures are intact. Endplate spurs are present. Minor scarring and possible atelectasis is seen. There is a small, somewhat tubular finding with a 6 mm nodular component in the axial plane at the anterior right lower lobe. There are multiple additional tiny 2 - 3 mm nodular densities on the right. The largest is an intrapulmonary lymph node within the right lower lobe along the major fissure measuring 6 mm. A subtle tiny 2 mm nodular density is present at the apex on the left. There is no consolidation, pleural effusion or pneumothorax. Limited cuts through the upper abdomen show possible fatty liver. CT/CT chest w con IMPRESSION: MILDLY DILATED ASCENDING AORTA. TINY PULMONARY NODULES. MINIMAL SCARRING AND/OR ATELECTASIS. NO OTHER ACUTE FINDINGS. Impression dictated by: Shefali Campoverde M.D. 04/17/2025 8:48 AM Dictation Location: [place] [address] Electronically authenticated by: [id number] Y Date: 04/17/2025 08:48
[2025-04-16 14:32] LABS: Estimated GFR (African America >60 (>=60 mL/min/1.73m^2); Estimated GFR (Non-African Ame 53 (>=60 mL/min/1.73m^2)
[2025-04-16 14:37] LABS: Calcium 9.8 mg/dL (8.5-10.1)
== END 2025-04-16 13:53 | disposition home or self-care (01) ==
LOC: LAB 13:55
PROVIDERS: PCP Internal Medicine; Visit Provider Internal Medicine
DX: R06.02 Shortness of breath (principal); E83.52 Hypercalcemia; N18.31 Chronic kidney disease, stage 3a; I12.9 Hypertensive chronic kidney disease with stage 1 through stage 4 chronic kidney disease, or unspecified chronic kidney disease; R73.9 Hyperglycemia, unspecified; R06.00 Dyspnea, unspecified; R05.9 Cough, unspecified
CPT/HCPCS: 36415; 71260; 82306; 82310; 82565; 83036; 83970; 84100; Q9967